=== PATIENT | female | born 1965 | race Caucasian/White ===

== ENCOUNTER → 2016-12-16 | Outpatient (CLI) | payer BC ==
[~2016-12-16] MED LIST: ATOR10TA82 PO; CPR500 PO; ESTR1.252 PO; FLUC100T4 PO; MTR250 PO; OMEP40CA41 PO; ONDA4TAB10 SL; ONDA4TAB7 SL; PRT/20 PO; RANI150T3 PO
--- NOTE | 2016-12-16 16:35 | MAMMOGRAPHY REPORT ---
BILATERAL DIGITAL SCREENING MAMMOGRAM TOMOSYNTHESIS WITH CAD: 12/16/2016 CLINICAL HISTORY: Routine screening. Patient has no complaints. TECHNIQUE: Breast tomosynthesis in addition to standard 2D mammography was performed. Current study was also evaluated with a Computer Aided Detection (CAD) system. COMPARISON: Comparison is made to exams dated: 11/19/2014 mammogram, 10/25/2014 mammogram, 10/25/2014 ultrasound, 10/22/2014 mammogram, 11/17/2012 mammogram, and 08/04/2010 mammogram - [facility]. BREAST COMPOSITION: There are scattered areas of fibroglandular density in both breasts. FINDINGS: No suspicious masses, calcifications, or areas of architectural distortion are noted in e ither breast. There has been no significant interval change compared to prior exams. A biopsy marke r clip is noted in the right upper outer quadrant. IMPRESSION: ACR BI-RADS CATEGORY 2: BENIGN There is no mammographic evidence of malignancy. A 1 year screening mammogram is recommended. The p atient will receive written notification of the results. Approximately 10% of breast cancers are not detected with mammography. A negative mammographic repor t should not delay biopsy if a clinically suggestive mass is present. Radha Napoles M.D. /:12/16/2016 15:18:23 Order Expediter: Ibis ROY)(Chin), [facility] letter sent: Normal 1/2 BI-RADS Code: ACR BI-RADS Category 2: Benign
== END | disposition home or self-care (01) ==
LOC: C.MAMM 14:23
PROVIDERS: ATTEND Obstetrics & Gynecology
DX: Z12.31 Encounter for screening mammogram for malignant neoplasm of breast (principal)

== ENCOUNTER 2017-02-26 22:57 | Inpatient (IN) | payer BC ==
[~2017-02-26] VITALS: Ht 154.9 cm; Wt 61.0 kg
[~2017-02-26 22:57] MED LIST changes: -ATOR10TA82 PO; +ATOR10TA88 PO; -CPR500 PO; -FLUC100T4 PO; -MTR250 PO; -OMEP40CA41 PO; -ONDA4TAB10 SL; -PRT/20 PO; -RANI150T3 PO
[2017-02-26] MEDS ORDERED: ONDANSETRON INJ 2 MG/ML 2 ML VIAL IV STA (23:19)
[2017-02-26] MEDS ORDERED: OPTIRAY 320 IV PRN (23:30)
[2017-02-26] MEDS ORDERED: SODIUM CHLORIDE 0.9% 1000ML 1,000 ML IV ONE (23:30)
[2017-02-26 23:41] LABS: BASO % 0.2 %; BASO ABS # 0.02 K/uL (0-0.2); COMPLETE YES; EOS % 0.1 %; HEMATOCRIT 42.9 % (37-47); IG% 0.1 %; LYMPH % 12.9 %; LYMPH ABS # 1.47 K/uL (1.2-3.4); MEAN CELL VOLUME 84.6 fL (80-100); MEAN CORPUSCULAR HEMOGLOBIN 30.8 pg (25-34); MEAN CORPUSCULAR HGB CONC 36.4 g/dl (32-36); MEAN PLATELET VOLUME 10.4 fL (7.4-10.4); MONO % 3.8 %; NEUT % 82.9 %; PLATELET COUNT 266 K/uL (130-400); RED BLOOD COUNT 5.07 M/uL (4.2-5.4); WHITE BLOOD COUNT 11.42 K/uL (4.8-10.8)
[2017-02-26] MEDS: MoRPHine SULFATE 4 MG/ML 1 ML CARP\\VIAL IV PRN (23:41)
[2017-02-27 00:01] LABS: BUN/CREATININE RATIO 14.4 (10-20); CALCIUM 9.5 mg/dl (8.5-10.1); CREATININE 0.68 mg/dl (0.60-1.20); MAGNESIUM 1.8 mg/dl (1.8-2.4); POTASSIUM 3.9 mmol/L (3.5-5.1)
[2017-02-27 00:12] LABS: ALB/GLOB RATIO 0.8 (0.9-2); THYROID STIMULATING HORMONE 1.75 uIu/ml (0.300-4.500)
[2017-02-27 00:26] LABS: MANUAL MICROSCOPIC REQUIRED? YES; URINE APPEARANCE SL CLOUDY (CLEAR); URINE BILIRUBIN NEG (NEG); URINE COLOR YELLOW; URINE NITRITE NEG (NEG); URINE PH 5.5 (4.5-7.5); URINE SPECIFIC GRAVITY >= 1.030 (1.000-1.030); UROBILINOGEN NEG (NEG)
[2017-02-27 00:50] LABS: REVIEW REQ? NO
[2017-02-27 00:53] LABS: ZZUR CULT IF INDIC CLEAN CATCH NO
[2017-02-27] MEDS: MoRPHine SULFATE 4 MG/ML 1 ML CARP\\VIAL IV PRN (01:50)
[2017-02-27] MEDS ORDERED: KETOROLAC TROMETHAMINE 30 MG/ML VIAL IV PRN (03:30)
[2017-02-27] MEDS ORDERED: MoRPHine SULFATE 4 MG/ML 1 ML CARP\\VIAL IV PRN (03:30)
[2017-02-27] MEDS ORDERED: ACETAMINOPHEN 325 MG TAB PO PRN (03:30)
[2017-02-27] MEDS ORDERED: PIPERACILL/TAZOBAC CONSULT ACTIVE PRN (03:45)
[2017-02-27] MEDS ORDERED: NSS + 20MEQ KCL 1000ML 1,000 ML IV ONE (03:45)
[2017-02-27] MEDS ORDERED: FAMOTIDINE IV INJ 20 MG in DEXTROSE 5% 100ML 100 ML IV ONE (03:45)
--- NOTE | 2017-02-27 04:11 | EMERGENCY ROOM VISIT NOTE ---
History First contact with patient: 23:08 Chief Complaint: ABDOMINAL PAIN Stated Complaint: CRAMPING Nursing Triage Summary: History of Present Illness The patient is a 51 year old female who presents to the Emergency Room with complaints of severe and worsening abdominal pain and cramping over the past 20 hours. The patient states that she has felt like she has needed to have a bowel movement, however when she does this she has noted some blood in her stool. The patient does not report fever or chills. She feels like she is constipated, but has had normal bowel movements recently. She has attempted Advil at home without relief of her discomfort. Her past does include a history of hysterectomy years ago. She does report one episode of this in the past, but not at this level of severity. She rates her current pain a 9/10, generalized to her abdomen, nonradiating. She is not head, neck, or chest pain. No vaginal drainage or discharge. No dysuria. Review of Systems More than 10 systems were reviewed and otherwise negative with the exception of history of present illness. Past Medical/Surgical History Medical Problems: (1) Colitis Surgical Problems: (1) History of hysterectomy Family History No pertinent family history Social History Smoking Status: Never Smoker Marital Status: Housing Status: lives with family Occupation Status: employed Current/Historical Medications Scheduled Estrogens, Conjugated (Premarin), 1.25 MG PO DAILY Allergies Coded Allergies: No Known Allergies (Unverified , 02/26/17) Physical Exam Vital Signs Date Time Temp Pulse Resp B/P (MAP) Pulse Ox O2 Delivery O2 Flow Rate FiO2 02/27/17 03:19 83 20 135/80 97 Room Air 02/27/17 02:04 69 18 139/74 97 Room Air 02/27/17 00:50 74 16 129/76 98 Room Air 02/26/17 23:02 36.6 77 19 135/75 98 Room Air Pain Rating (0-10): 5.0 Physical Exam VITALS: Vitals are noted on the nurse's note and reviewed by myself. Vital signs stable. GENERAL: Well-developed, well-nourished, white female who appears in moderate discomfort secondary to her stated complaint. HEAD: Normocephalic atraumatic. HEART: Regular rate and rhythm without murmurs gallops or rubs. LUNGS: Clear to auscultation bilaterally without wheezes, rales or rhonchi. No retractions or accessory muscle use. ABDOMEN: Positive normal bowel sounds x 4. Soft with generalized abdominal tenderness. No rebound or guarding. No CVA tenderness. MUSCULOSKELETAL: No muscle atrophy, erythema, or edema noted. Full range of motion without joint tenderness in all extremities. Medical Decision & Procedures ER Provider Diagnostic Interpretation: Preliminary Findings Only See Final Report For Complete Findings CT ABDOMEN & PELVIS: Bowel wall thickening of the descending and sigmoid colon, compatible with colitis. Appendix is normal. No free fluid. No free air. No evidence of bowel obstruction. Colonic diverticulosis without evidence of diverticulitis. Liver, gallbladder, pancreas, spleen, kidneys and adrenals are unremarkable. Uterus is surgically absent. Laboratory Results 02/26/17 23:32 Red Blood Count 5.07, Mean Corpuscular Volume 84.6, Mean Corpuscular Hemoglobin 30.8, Mean Corpuscular Hemoglobin Concent 36.4, Mean Platelet Volume 10.4, Neutrophils (%) (Auto) 82.9, Lymphocytes (%) (Auto) 12.9, Monocytes (%) (Auto) 3.8, Eosinophils (%) (Auto) 0.1, Basophils (%) (Auto) 0.2, Neutrophils # (Auto) 9.48, Lymphocytes # (Auto) 1.47, Monocytes # (Auto) 0.43, Eosinophils # (Auto) 0.01, Basophils # (Auto) 0.02 02/26/17 23:32 Test 02/26/17 23:15 02/26/17 23:32 02/26/17 23:36 Urine Color YELLOW Urine Appearance SL CLOUDY (CLEAR) Urine pH 5.5 (4.5-7.5) Urine Specific [place] >= 1.030 (1.000-1.030) Urine Protein NEG (NEG) Urine Glucose (UA) NEG (NEG) Urine Ketones 2+ (NEG) Urine Occult Blood 3+ (NEG) Urine Nitrite NEG (NEG) Urine Bilirubin NEG (NEG) Urine Urobilinogen NEG (NEG) Urine Leukocyte Esterase NEG (NEG) Urine RBC /hpf (0-4) Urine WBC /hpf (0-5) Urine Epithelial Cells /lpf (0-5) Urine Bacteria (NEG) White Blood Count 11.42 K/uL (4.8-10.8) Red Blood Count 5.07 M/uL (4.2-5.4) Hemoglobin 15.6 g/dL (12.0-16.0) Hematocrit 42.9 % (37-47) Mean Corpuscular Volume 84.6 fL (80-100) Mean Corpuscular Hemoglobin 30.8 pg (25-34) Mean Corpuscular Hemoglobin Concent 36.4 g/dl (32-36) Platelet Count 266 K/uL (130-400) Mean Platelet Volume 10.4 fL (7.4-10.4) Neutrophils (%) (Auto) 82.9 % Lymphocytes (%) (Auto) 12.9 % Monocytes (%) (Auto) 3.8 % Eosinophils (%) (Auto) 0.1 % Basophils (%) (Auto) 0.2 % Neutrophils # (Auto) 9.48 K/uL (1.4-6.5) Lymphocytes # (Auto) 1.47 K/uL (1.2-3.4) Monocytes # (Auto) 0.43 K/uL (0.11-0.59) Eosinophils # (Auto) 0.01 K/uL (0-0.5) Basophils # (Auto) 0.02 K/uL (0-0.2) RDW Standard Deviation 38.0 fL (36.4-46.3) RDW Coefficient of Variation 12.5 % (11.5-14.5) Immature Granulocyte % (Auto) 0.1 % Immature Granulocyte # (Auto) 0.01 K/uL (0.00-0.02) Anion Gap 9.0 mmol/L (3-11) Est Creatinine Clear Calc Drug Dose 83.5 ml/min Estimated GFR () 118.2 Estimated GFR (Non- 102.0 BUN/Creatinine Ratio 14.4 (10-20) Lactic Acid Level 1.4 mmol/L (0.4-2.0) Calcium Level 9.5 mg/dl (8.5-10.1) Magnesium Level 1.8 mg/dl (1.8-2.4) Total Bilirubin 0.5 mg/dl (0.2-1) Aspartate Amino Transf (AST/SGOT) 15 U/L (15-37) Alanine Aminotransferase (ALT/SGPT) 20 U/L (12-78) Alkaline Phosphatase 85 U/L (45-117) Total Protein 7.7 gm/dl (6.4-8.2) Albumin 3.4 gm/dl (3.4-5.0) Globulin 4.3 gm/dl (2.5-4.0) Albumin/Globulin Ratio 0.8 (0.9-2) Lipase 123 U/L (73-393) Thyroid Stimulating Hormone (TSH) 1.750 uIu/ml (0.300-4.500) Bedside Lactic Acid Venous 1.49 mmol/L (0.90-1.70) Medications Administered Medications (Trade) Dose Ordered Sig/Panchito Route Start Time Stop Time Status Last Admin Dose Admin Sodium Chloride 1,000 ml @ 999 mls/hr Q1H1M ONCE IV 02/26/17 23:30 02/27/17 00:30 DC 02/26/17 23:41 999 MLS/HR Morphine Sulfate (MoRPHine SULFATE INJ) 4 mg Q1H PRN IV 02/26/17 23:30 03/12/17 23:29 02/27/17 01:50 4 MG Ondansetron HCl (Zofran Inj) 4 mg NOW STAT IV 02/26/17 23:19 02/26/17 23:21 DC 02/26/17 23:41 4 MG Famotidine 20 mg/ Dextrose 102 ml @ 200 mls/hr NOW ONCE IV 02/27/17 03:45 02/27/17 04:15 02/27/17 03:56 200 MLS/HR ED Course Physical exam and history were performed. Nursing notes and EMR were reviewed. Patient appears to have generalized abdominal pain for the past 20 hours. The patient appears quite uncomfortable on examination. Her abdominal exam is with diffuse tenderness but no guarding or rebound. There is no distinct point tenderness. IV access was established and labs were obtained. The patient was hydrated with normal saline and given as needed morphine. She was given Zofran for nausea. CT scan of the abdomen and pelvis was performed. The patient's blood work is as above and was reviewed. She does have a slightly elevated white blood cell count. She does not have a significant anemia, bandemia, or gross electrolyte imbalance. Lipase and transaminases are nondiagnostic. Urine is without gross evidence of infection. Lactic acid was negative. The patient CT scan is as above and does show colitis of the descending and sigmoid colon. The patient was reevaluated multiple times throughout the course of her stay. She did need several doses of morphine to remain comfortable and did not have any vomiting here in the department. I did add stool studies to her workup due to the colitis of unknown etiology. Overall the patient does not seem stable for discharge home. She continues to be with discomfort and has colitis of unknown etiology. I discussed the case with the on-call hospitalist, who agreed to evaluate the patient here in the emergency department. Please see their dictation for further patient course, plan, and disposition. The chart was completed utilizing [employer] Speech Voice Recognition Software. Grammatical errors, random word insertions, pronoun errors, and incomplete sentences are an occasional consequence of this system due to software limitations, ambient noise, and hardware issues. Any formal questions or concerns about the content, text, or information contained within the body of this dictation should be directly addressed to the provider for clarification. . Medical Decision Differential diagnosis: Etiologies such as appendicitis, diverticulitis, PUD, biliary pathology, UTI, pancreatitis, obstruction, mesenteric ischemia, aortic pathology, infections, inflammatory bowel disease, renal colic, as well as others were entertained. Impression Primary Impression: Colitis Additional Impression: Vomiting and diarrhea Departure Information Referrals No Doctor, Assigned (PCP) Patient Instructions [facility] Problem Qualifiers
[2017-02-27 04:32] VITALS: BP 121/66; PULSE 61; TEMP 36.6; O2SAT 95; Ht 154.9 cm; Wt 61.0 kg
[2017-02-27] MEDS ORDERED: PIPERACILL/TAZOBAC IV 3.375 GM in DEXTROSE 5% 100ML 100 ML IV ONE (05:00)
--- NOTE | 2017-02-27 05:32 | History and Physical ---
History & Physical Date & Time of Service: Feb 27, 2017 at 05:25 Chief Complaint: Colitis Primary Care Physician: No Doctor, Assigned History of Present Illness Source: patient The patient is a 51-year-old female who presents emergency department with approximately 24 hours of progressively worsening generalized abdominal pain and cramping. She has taken Advil approximately every 6 hours without significant improvement. She has not had any fevers or chills, it feels like she is constipated, but is normal bowel. She has not had any dysuria, urinary frequency or urgency. She's had one previous episode of this type of discomfort , but did not last as long and was not nearly as intense. She does not report any different with questionable oral intake of foods or liquids. Past Medical/Surgical History Surgical Problems: (1) History of hysterectomy Status: Resolved Social History Smoking Status: Never Smoker Smokeless Tobacco Use: No Alcohol Use: none Drug Use: none Marital Status: Housing status: lives with family Occupational Status: employed Multi-Drug Resistant Organisms History of MDRO: No Allergies Coded Allergies: No Known Allergies (Unverified , 02/26/17) Home Medications Scheduled Estrogens, Conjugated (Premarin), 1.25 MG PO DAILY Review of Systems The patient denies chest pain, palpitations, shortness of breath, cough, lower extremity swelling, sore throat, fevers, chills, sweats, vomiting, blood in urine or stool, dysuria, urinary frequency or urgency, lightheadedness, dizziness, headache, memory loss, rash, abnormal bruising or bleeding, imbalance , focal or generalized weakness, numbness or tingling in arms or legs, arthralgias or myalgias, back or neck pain, night sweats. The review of systems is otherwise negative other than for that already noted above, and at least 10 systems have been reviewed. Physical Exam Vital Signs Date Time Temp Pulse Resp B/P (MAP) Pulse Ox O2 Delivery O2 Flow Rate FiO2 02/27/17 04:32 36.6 61 20 121/66 95 Room Air 02/27/17 03:19 83 20 135/80 97 Room Air 02/27/17 02:04 69 18 139/74 97 Room Air 02/27/17 00:50 74 16 129/76 98 Room Air 02/26/17 23:02 36.6 77 19 135/75 98 Room Air The patient is awake, well-developed and adequately nourished, alert and oriented 3, normocephalic and atraumatic, lying in bed and in mild distress. HEENT--PERRL, EOMI, mucous membranes and oropharynx dry. Neck--supple, no JVD or bruits, thyroid normal, trachea midline, no adenopathy. Heart--normal S1 and S2, no extra beats, no murmurs, rubs or gallops. Lungs--clear bilaterally with good air movement, no respiratory distress, no accessory muscle use. Abdomen--decreased bowel sounds, soft, with tenderness most pronounced left lower quadrant. Extremities--no cyanosis, clubbing or edema. There are good distal pulses b/l. Dermatologic--normal skin turgor, normal color, warm and dry, no abnormal lymph nodes, no rash. Neurologic--cranial nerves II through XII grossly intact. Rheumatologic--normal range of motion, nontender, muscles and joints. Psychiatric--normal affect. Diagnostics Laboratory Results Results Past 24 Hours Test 02/26/17 23:15 02/26/17 23:32 02/26/17 23:36 Range/Units Urine Color YELLOW Urine Appearance SL CLOUDY CLEAR Urine pH 5.5 4.5-7.5 Urine Specific [place] >= 1.030 1.000-1.030 Urine Protein NEG NEG Urine Glucose (UA) NEG NEG Urine Ketones 2+ NEG Urine Occult Blood 3+ NEG Urine Nitrite NEG NEG Urine Bilirubin NEG NEG Urine Urobilinogen NEG NEG Urine Leukocyte Esterase NEG NEG Urine RBC 0-4 /hpf Urine WBC 0-5 /hpf Urine Epithelial Cells 0-5 /lpf Urine Bacteria NEG White Blood Count 11.42 4.8-10.8 K/uL Red Blood Count 5.07 4.2-5.4 M/uL Hemoglobin 15.6 12.0-16.0 g/dL Hematocrit 42.9 37-47 % Mean Corpuscular Volume 84.6 80-100 fL Mean Corpuscular Hemoglobin 30.8 25-34 pg Mean Corpuscular Hemoglobin Concent 36.4 32-36 g/dl Platelet Count 266 130-400 K/uL Mean Platelet Volume 10.4 7.4-10.4 fL Neutrophils (%) (Auto) 82.9 % Lymphocytes (%) (Auto) 12.9 % Monocytes (%) (Auto) 3.8 % Eosinophils (%) (Auto) 0.1 % Basophils (%) (Auto) 0.2 % Neutrophils # (Auto) 9.48 1.4-6.5 K/uL Lymphocytes # (Auto) 1.47 1.2-3.4 K/uL Monocytes # (Auto) 0.43 0.11-0.59 K/uL Eosinophils # (Auto) 0.01 0-0.5 K/uL Basophils # (Auto) 0.02 0-0.2 K/uL RDW Standard Deviation 38.0 36.4-46.3 fL RDW Coefficient of Variation 12.5 11.5-14.5 % Immature Granulocyte % (Auto) 0.1 % Immature Granulocyte # (Auto) 0.01 0.00-0.02 K/uL Sodium Level 142 136-145 mmol/L Potassium Level 3.9 3.5-5.1 mmol/L Chloride Level 109 98-107 mmol/L Carbon Dioxide Level 24 21-32 mmol/L Anion Gap 9.0 3-11 mmol/L Blood Urea Nitrogen 10 7-18 mg/dl Creatinine 0.68 0.60-1.20 mg/dl Est Creatinine Clear Calc Drug Dose 83.5 ml/min Estimated GFR () 118.2 Estimated GFR (Non- 102.0 BUN/Creatinine Ratio 14.4 10-20 Random Glucose 128 70-99 mg/dl Lactic Acid Level 1.4 0.4-2.0 mmol/L Calcium Level 9.5 8.5-10.1 mg/dl Magnesium Level 1.8 1.8-2.4 mg/dl Total Bilirubin 0.5 0.2-1 mg/dl Aspartate Amino Transf (AST/SGOT) 15 15-37 U/L Alanine Aminotransferase (ALT/SGPT) 20 12-78 U/L Alkaline Phosphatase 85 45-117 U/L Total Protein 7.7 6.4-8.2 gm/dl Albumin 3.4 3.4-5.0 gm/dl Globulin 4.3 2.5-4.0 gm/dl Albumin/Globulin Ratio 0.8 0.9-2 Lipase 123 73-393 U/L Thyroid Stimulating Hormone (TSH) 1.750 0.300-4.500 uIu/ml Bedside Lactic Acid Venous 1.49 0.90-1.70 mmol/L Impression Assessment and Plan Colitis involving descending and sigmoid colon--patient be admitted to the medical surgical floor. She'll be allowed clear liquids. We'll place on NSS with KCl 20 mEq at 100 ML's per hour. Follow serial CBC with differential, PRP and magnesium. Place on Zosyn 3.375 mg IV every 6 hours, Zofran 4 mg IV every 6 hours., Famotidine 20 mg IV every 12 hours, morphine sulfate 2-4 mg IV every 2 hours.. Level of Care Med/Surg Advanced Directives Existing Advance Directive: No Existing Living Will: No Existing Power of Engineering Design Supervisor: No Resuscitation Status FULL RESUSCITATION VTE Prophylaxis VTE Risk Assessment Done? Y/N: Yes Risk Level: Low Given or contraindicated: SCD's Social Service Consult None Apply
[2017-02-27 07:15] VITALS: BP 121/69; PULSE 68; TEMP 36.6; O2SAT 96
--- NOTE | 2017-02-27 07:38 | DIAGNOSTIC IMAGING REPORT ---
CT SCAN OF THE ABDOMEN AND PELVIS WITH IV CONTRAST CLINICAL HISTORY: Generalized abdominal pain. Hematochezia. COMPARISON STUDY: Abdominal radiographs dated 01/19/2014. TECHNIQUE: Following the IV administration of 115 cc of Optiray 320, CT scan of the abdomen and pelvis is performed from the lung bases to the proximal femora. Images are reviewed in the axial, sagittal, and coronal planes. IV contrast was administered without complication. Automated dose control exposure was utilized. CT DOSE: 316.26 mGy.cm FINDINGS: Lung bases: The heart is normal in size and without pericardial effusion. There are least 5 pulmonary and pleural-based nodules seen in the lower lobes measuring up to 7 mm. The largest is in the left lower lobe as seen on image #38. No airspace consolidation or pleural effusion is identified. Liver: The contrast-enhanced liver is normal in size, contour, and attenuation. There is no intrahepatic biliary ductal dilatation. The hepatic veins and portal veins are patent. Gallbladder: Unremarkable. Spleen: Normal in size and attenuation. Pancreas: Unremarkable. Adrenal glands: Unremarkable. Kidneys: The contrast enhanced kidneys are normal in size and without hydronephrosis. The kidneys enhance symmetrically. Abdominal vasculature: The abdominal aorta is normal in course and caliber noting mild atherosclerotic calcification. Bowel: The small bowel and colon are normal in course and caliber. There is mild sigmoid diverticulosis without CT evidence of acute diverticulitis. There is a long segment of wall thickening and edema involving predominantly the descending colon consistent with a nonspecific colitis. There is mild pericolonic infiltration. The appendix is well-visualized and normal. Peritoneum: There is no intraperitoneal free air or abdominal ascites. There is a tiny hiatal hernia. Lymphadenopathy: None. Pelvic viscera: The bladder is normal as visualized. The uterus is surgically absent. No adnexal lesion is seen. Skeletal structures: No lytic or blastic lesions are seen. There are bilateral pars defects at L5 with advanced degenerative disc space narrowing and 13 mm anterolisthesis at L5-S1. IMPRESSION: 1. Findings are consistent with a nonspecific colitis of the descending colon. This is likely on an infectious or inflammatory basis in this age group. 2. Mild sigmoid diverticulosis without CT evidence of acute diverticulitis. 3. There are least 5 pulmonary and pleural-based nodules at both lung bases measuring up to 7 mm. These are indeterminant and follow-up with a nonemergent chest CT is recommended for further assessment. 4. Additional findings as above. Electronically signed by: Joshua Bar M.D. 02/27/2017 7:37 AM Dictated Date/Time: 02/27/2017 7:27 AM
[2017-02-27] MEDS: ESTROGENS, CONJUGATED 0.625 MG TAB PO SCH (08:07)
[2017-02-27 08:30] VITALS: O2SAT 96
[2017-02-27] MEDS: PIPERACILL/TAZOBAC IV 3.375 GM in DEXTROSE 5% 100ML 100 ML IV SCH ×2 (10:04→17:35)
[2017-02-27] MEDS: MoRPHine SULFATE 2 MG/ML CARP IV PRN ×2 (10:07→14:43)
--- NOTE | 2017-02-27 11:47 | Family Medicine Progress Note ---
Progress Note Date of Service Feb 27, 2017. Subjective Pt evaluation today including: conversation w/ patient, physical exam, chart review, lab review, review of studies, review of inpatient medication list Pain: abdominal pain improved PO Intake: NPO Voiding: no voiding problems 51 yo F presenting with Generalized abdominal pain/cramping, afebrile on arrival with WBC of 11.42, Ct Abdomen findings consistent with Colitis. Colitis -Abdominal pain improved -C/w IV NA -c/w Iv Zosyn -NPO Abnormal UA -Cloudy, 3+ Blood -Currently on Zosyn -Repeat UA Diet: Advance Diet Tmr DVT Proph: SCD Medications Current Inpatient Medications Medications (Trade) Dose Ordered Sig/Panchito Route Start Time Stop Time Status Last Admin Dose Admin Morphine Sulfate (MoRPHine SULFATE INJ) 4 mg Q1H PRN IV 02/26/17 23:30 03/12/17 23:29 02/27/17 01:50 4 MG Ioversol (Optiray 320) 100 ml UD PRN IV 02/26/17 23:30 03/02/17 23:29 Acetaminophen (Tylenol Tab) 650 mg Q4H PRN PO 02/27/17 03:30 03/29/17 03:29 Estrogens Conjugated (Premarin Tab) 1.25 mg DAILY PO 02/27/17 08:00 03/29/17 08:59 02/27/17 08:07 1.25 MG Piperacillin Sod/ Tazobactam Sod 3.375 gm/Dextrose 115 ml @ 28.75 mls/ hr Q8@0200,1000,1800 IV 02/27/17 10:00 03/09/17 09:59 02/27/17 10:04 28.75 MLS/HR Ondansetron HCl (Zofran Inj) 4 mg Q6H PRN IV 02/27/17 03:30 03/29/17 03:29 Potassium Chloride/Sodium Chloride 1,000 ml @ 100 mls/hr Q10H IV 02/27/17 13:45 03/29/17 13:44 02/27/17 14:10 100 MLS/HR Morphine Sulfate (MoRPHine SULFATE INJ) 2 mg Q2H PRN IV 02/27/17 03:30 03/13/17 03:29 02/27/17 10:07 2 MG Morphine Sulfate (MoRPHine SULFATE INJ) 4 mg Q2H PRN IV 02/27/17 03:30 03/13/17 03:29 Ketorolac Tromethamine (Toradol Inj) 30 mg Q6H PRN IV 02/27/17 03:30 03/04/17 03:29 Famotidine 20 mg/ Dextrose 102 ml @ 200 mls/hr Q12H IV 02/27/17 12:00 03/29/17 11:59 02/27/17 14:10 200 MLS/HR Piperacillin Sod/ Tazobactam Sod (Consult) 1 ea UD PRN N/A 02/27/17 03:45 03/29/17 03:44 Objective Vital Signs Date Time Temp Pulse Resp B/P (MAP) Pulse Ox O2 Delivery O2 Flow Rate FiO2 02/27/17 08:30 96 Room Air 02/27/17 07:15 36.6 68 18 121/69 (86) 96 Room Air 02/27/17 04:32 36.6 61 20 121/66 95 Room Air 02/27/17 03:19 83 20 135/80 97 Room Air 02/27/17 02:04 69 18 139/74 97 Room Air 02/27/17 00:50 74 16 129/76 98 Room Air 02/26/17 23:02 36.6 77 19 135/75 98 Room Air Physical Exam General Appearance: WD/WN, no apparent distress Eyes: PERRL, EOMI Neck: supple, no carotid bruits, trachea midline Respiratory/Chest: lungs clear, normal breath sounds, no respiratory distress Cardiovascular: regular rate, rhythm, no edema, no gallop Abdomen: soft, + tenderness (diffuse) Extremities: no pedal edema, no calf tenderness Neurologic/Psychiatric: alert, normal mood/affect Skin: warm/dry, no rash Laboratory Results Results Past 24 Hours Test 02/26/17 23:15 02/26/17 23:32 02/26/17 23:36 Range/Units Urine Color YELLOW Urine Appearance SL CLOUDY CLEAR Urine pH 5.5 4.5-7.5 Urine Specific [place] >= 1.030 1.000-1.030 Urine Protein NEG NEG Urine Glucose (UA) NEG NEG Urine Ketones 2+ NEG Urine Occult Blood 3+ NEG Urine Nitrite NEG NEG Urine Bilirubin NEG NEG Urine Urobilinogen NEG NEG Urine Leukocyte Esterase NEG NEG Urine RBC 0-4 /hpf Urine WBC 0-5 /hpf Urine Epithelial Cells 0-5 /lpf Urine Bacteria NEG White Blood Count 11.42 4.8-10.8 K/uL Red Blood Count 5.07 4.2-5.4 M/uL Hemoglobin 15.6 12.0-16.0 g/dL Hematocrit 42.9 37-47 % Mean Corpuscular Volume 84.6 80-100 fL Mean Corpuscular Hemoglobin 30.8 25-34 pg Mean Corpuscular Hemoglobin Concent 36.4 32-36 g/dl Platelet Count 266 130-400 K/uL Mean Platelet Volume 10.4 7.4-10.4 fL Neutrophils (%) (Auto) 82.9 % Lymphocytes (%) (Auto) 12.9 % Monocytes (%) (Auto) 3.8 % Eosinophils (%) (Auto) 0.1 % Basophils (%) (Auto) 0.2 % Neutrophils # (Auto) 9.48 1.4-6.5 K/uL Lymphocytes # (Auto) 1.47 1.2-3.4 K/uL Monocytes # (Auto) 0.43 0.11-0.59 K/uL Eosinophils # (Auto) 0.01 0-0.5 K/uL Basophils # (Auto) 0.02 0-0.2 K/uL RDW Standard Deviation 38.0 36.4-46.3 fL RDW Coefficient of Variation 12.5 11.5-14.5 % Immature Granulocyte % (Auto) 0.1 % Immature Granulocyte # (Auto) 0.01 0.00-0.02 K/uL Sodium Level 142 136-145 mmol/L Potassium Level 3.9 3.5-5.1 mmol/L Chloride Level 109 98-107 mmol/L Carbon Dioxide Level 24 21-32 mmol/L Anion Gap 9.0 3-11 mmol/L Blood Urea Nitrogen 10 7-18 mg/dl Creatinine 0.68 0.60-1.20 mg/dl Est Creatinine Clear Calc Drug Dose 83.5 ml/min Estimated GFR () 118.2 Estimated GFR (Non- 102.0 BUN/Creatinine Ratio 14.4 10-20 Random Glucose 128 70-99 mg/dl Lactic Acid Level 1.4 0.4-2.0 mmol/L Calcium Level 9.5 8.5-10.1 mg/dl Magnesium Level 1.8 1.8-2.4 mg/dl Total Bilirubin 0.5 0.2-1 mg/dl Aspartate Amino Transf (AST/SGOT) 15 15-37 U/L Alanine Aminotransferase (ALT/SGPT) 20 12-78 U/L Alkaline Phosphatase 85 45-117 U/L Total Protein 7.7 6.4-8.2 gm/dl Albumin 3.4 3.4-5.0 gm/dl Globulin 4.3 2.5-4.0 gm/dl Albumin/Globulin Ratio 0.8 0.9-2 Lipase 123 73-393 U/L Thyroid Stimulating Hormone (TSH) 1.750 0.300-4.500 uIu/ml Bedside Lactic Acid Venous 1.49 0.90-1.70 mmol/L Assessment and Plan 51 yo F presenting with Generalized abdominal pain/cramping, afebrile on arrival with WBC of 11.42, CT Abdomen findings consistent with Colitis. Colitis -Abdominal pain improved CT Abdomen: nonspecific colitis of the descending colon. -likely on an infectious or inflammatory basis in this age group -Mild sigmoid diverticulosis -C/w IV NA -C/w Iv Zosyn -NPO -Consider GI consult in the AM Pulmonary nodules - incidental finding on CT Abdomen/pelvis 5 pulmonary and pleural-based nodules at both lung bases measuring up to 7 mm. - Consider Chest CT in the AM non-emergently ( recommended by Radiology) Abnormal UA -Cloudy, 3+ Blood -Currently on Zosyn -Repeat UA Diet: Advance Diet Tmr DVT Proph: -SCD Discharge planning: home Resident Tracking Resident Involvement: Resident Care Provided Care Provided: Adult Hospital Medicine
[2017-02-27] MEDS: FAMOTIDINE IV INJ 20 MG in DEXTROSE 5% 100ML 100 ML IV SCH ×3 (12:19→23:29)
[2017-02-27] MEDS: NSS + 20MEQ KCL 1000ML 1,000 ML IV SCH ×2 (14:10→23:27)
[2017-02-27 15:01] VITALS: BP 123/74; PULSE 61; TEMP 36.8; O2SAT 97
[2017-02-27 16:00] VITALS: O2SAT 97
[2017-02-27] MEDS: ONDANSETRON INJ 2 MG/ML 2 ML VIAL IV PRN (17:35)
[2017-02-27 18:07] LABS: URINE APPEARANCE CLOUDY (CLEAR); URINE BILIRUBIN NEG (NEG); URINE COLOR YELLOW; URINE EPITHELIAL CELL AUTO >30 /lpf (0-5); URINE NITRITE NEG (NEG); URINE SPECIFIC GRAVITY 1.032 (1.000-1.030); UROBILINOGEN NEG (NEG); ZZUR CULT IF INDIC CLEAN CATCH NO
[2017-02-27 18:10] LABS: MANUAL MICROSCOPIC REQUIRED? NO; REVIEW REQ? NO
[2017-02-27 23:25] VITALS: BP 121/68; PULSE 63; TEMP 36.9; O2SAT 100
[2017-02-28] MEDS: PIPERACILL/TAZOBAC IV 3.375 GM in DEXTROSE 5% 100ML 100 ML IV SCH ×2 (01:18→10:27)
[2017-02-28 06:10] LABS: BASO % 0.4 %; BASO ABS # 0.04 K/uL (0-0.2); COMPLETE YES; EOS % 1.5 %; HEMATOCRIT 39.9 % (37-47); IG% 0.1 %; LYMPH ABS # 2.84 K/uL (1.2-3.4); MEAN CELL VOLUME 87.1 fL (80-100); MEAN CORPUSCULAR HEMOGLOBIN 29.9 pg (25-34); MEAN CORPUSCULAR HGB CONC 34.3 g/dl (32-36); MEAN PLATELET VOLUME 10.4 fL (7.4-10.4); MONO % 8.2 %; NEUT % 58.8 %; PLATELET COUNT 213 K/uL (130-400); RED BLOOD COUNT 4.58 M/uL (4.2-5.4); WHITE BLOOD COUNT 9.16 K/uL (4.8-10.8)
[2017-02-28 06:34] LABS: BUN/CREATININE RATIO 10.4 (10-20); CALCIUM 8.3 mg/dl (8.5-10.1); CREATININE 0.72 mg/dl (0.60-1.20); MAGNESIUM 1.8 mg/dl (1.8-2.4); POTASSIUM 3.4 mmol/L (3.5-5.1)
[2017-02-28 07:15] VITALS: BP 123/74; PULSE 64; TEMP 36.7; O2SAT 99
[2017-02-28] MEDS: ESTROGENS, CONJUGATED 0.625 MG TAB PO SCH (07:52)
[2017-02-28] MEDS: NSS + 20MEQ KCL 1000ML 1,000 ML IV SCH ×2 (10:14→19:47)
[2017-02-28] MEDS: FAMOTIDINE IV INJ 20 MG in DEXTROSE 5% 100ML 100 ML IV SCH ×2 (14:06→23:45)
[2017-02-28 14:56] VITALS: BP 132/72; PULSE 69; TEMP 37.3; O2SAT 98
[2017-02-28] MEDS ORDERED: CIPROFLOXACIN 500 MG TAB PO ONE (15:00)
--- NOTE | 2017-02-28 15:22 | Family Medicine Progress Note ---
Progress Note Date of Service Feb 28, 2017. Subjective Pt evaluation today including: conversation w/ patient, physical exam Pain: none PO Intake: minimal Patients abdominal pain improving Still incontinent of faeces, liquid in nature, patient does not bright red blood in earlier bowel movement Patient unable to tolerate full liquid diet Constitutional: No fever, No chills, No sweats Respiratory: No cough, No wheezing, No shortness of breath Cardiovascular: No chest pain, No edema, No palpitations Abdomen: + pain, + nausea, + diarrhea, No vomiting, No constipation, No GI bleeding Musculoskeletal: No joint pain, No muscle pain, No swelling Skin: No rash, No itch, No new/changing skin lesions Medications Current Inpatient Medications Medications (Trade) Dose Ordered Sig/Panchito Route Start Time Stop Time Status Last Admin Dose Admin Ioversol (Optiray 320) 100 ml UD PRN IV 02/26/17 23:30 03/02/17 23:29 Acetaminophen (Tylenol Tab) 650 mg Q4H PRN PO 02/27/17 03:30 03/29/17 03:29 Estrogens Conjugated (Premarin Tab) 1.25 mg DAILY PO 02/27/17 08:00 03/29/17 08:59 02/27/17 08:07 1.25 MG Ondansetron HCl (Zofran Inj) 4 mg Q6H PRN IV 02/27/17 03:30 03/29/17 03:29 02/27/17 17:35 4 MG Potassium Chloride/Sodium Chloride 1,000 ml @ 100 mls/hr Q10H IV 02/27/17 13:45 03/29/17 13:44 02/28/17 10:14 100 MLS/HR Morphine Sulfate (MoRPHine SULFATE INJ) 2 mg Q2H PRN IV 02/27/17 03:30 03/13/17 03:29 02/27/17 14:43 2 MG Morphine Sulfate (MoRPHine SULFATE INJ) 4 mg Q2H PRN IV 02/27/17 03:30 03/13/17 03:29 Ketorolac Tromethamine (Toradol Inj) 30 mg Q6H PRN IV 02/27/17 03:30 03/04/17 03:29 Famotidine 20 mg/ Dextrose 102 ml @ 200 mls/hr Q12H IV 02/27/17 12:00 03/29/17 11:59 02/28/17 14:06 200 MLS/HR Ciprofloxacin/ Dextrose 400 mg/ Prmx 200 ml @ 100 mls/hr Q12 IV 02/28/17 21:00 03/01/17 10:59 Metronidazole 500 mg/Prmx 100 ml @ 100 mls/hr Q8H IV 02/28/17 16:00 03/01/17 08:59 Objective Vital Signs Date Time Temp Pulse Resp B/P (MAP) Pulse Ox O2 Delivery O2 Flow Rate FiO2 02/28/17 14:56 37.3 69 20 132/72 (92) 98 Room Air 02/28/17 08:10 Room Air 02/28/17 07:15 36.7 64 20 123/74 (90) 99 Room Air 02/28/17 00:00 Room Air 02/27/17 23:25 36.9 63 18 121/68 (85) 100 Room Air 02/27/17 16:00 97 Room Air Physical Exam General Appearance: WD/WN, no apparent distress Neck: supple, no adenopathy, no JVD, no carotid bruits Respiratory/Chest: chest non-tender, lungs clear, no respiratory distress, no accessory muscle use Cardiovascular: regular rate, rhythm, no edema, no murmur Abdomen: normal bowel sounds, soft, + tenderness (mild RLQ tenderness) Extremities: non-tender, no calf tenderness, normal capillary refill Neurologic/Psychiatric: no motor/sensory deficits, normal mood/affect, oriented x 3 Laboratory Results Results Past 24 Hours Test 02/27/17 17:30 02/28/17 05:31 Range/Units Urine Color YELLOW Urine Appearance CLOUDY CLEAR Urine pH 5.0 4.5-7.5 Urine Specific [place] 1.032 1.000-1.030 Urine Protein NEG NEG Urine Glucose (UA) NEG NEG Urine Ketones 1+ NEG Urine Occult Blood 1+ NEG Urine Nitrite NEG NEG Urine Bilirubin NEG NEG Urine Urobilinogen NEG NEG Urine Leukocyte Esterase TRACE NEG Urine WBC (Auto) 1-5 0-5 /hpf Urine RBC (Auto) 0-4 0-4 /hpf Urine Hyaline Casts (Auto) 1-5 0-5 /lpf Urine Epithelial Cells (Auto) >30 0-5 /lpf Urine Bacteria (Auto) NEG NEG White Blood Count 9.16 4.8-10.8 K/uL Red Blood Count 4.58 4.2-5.4 M/uL Hemoglobin 13.7 12.0-16.0 g/dL Hematocrit 39.9 37-47 % Mean Corpuscular Volume 87.1 80-100 fL Mean Corpuscular Hemoglobin 29.9 25-34 pg Mean Corpuscular Hemoglobin Concent 34.3 32-36 g/dl Platelet Count 213 130-400 K/uL Mean Platelet Volume 10.4 7.4-10.4 fL Neutrophils (%) (Auto) 58.8 % Lymphocytes (%) (Auto) 31.0 % Monocytes (%) (Auto) 8.2 % Eosinophils (%) (Auto) 1.5 % Basophils (%) (Auto) 0.4 % Neutrophils # (Auto) 5.38 1.4-6.5 K/uL Lymphocytes # (Auto) 2.84 1.2-3.4 K/uL Monocytes # (Auto) 0.75 0.11-0.59 K/uL Eosinophils # (Auto) 0.14 0-0.5 K/uL Basophils # (Auto) 0.04 0-0.2 K/uL RDW Standard Deviation 41.0 36.4-46.3 fL RDW Coefficient of Variation 12.8 11.5-14.5 % Immature Granulocyte % (Auto) 0.1 % Immature Granulocyte # (Auto) 0.01 0.00-0.02 K/uL Sodium Level 140 136-145 mmol/L Potassium Level 3.4 3.5-5.1 mmol/L Chloride Level 108 98-107 mmol/L Carbon Dioxide Level 23 21-32 mmol/L Anion Gap 9.0 3-11 mmol/L Blood Urea Nitrogen 8 7-18 mg/dl Creatinine 0.72 0.60-1.20 mg/dl Est Creatinine Clear Calc Drug Dose 78.3 ml/min Estimated GFR () 113.2 Estimated GFR (Non- 97.7 BUN/Creatinine Ratio 10.4 10-20 Random Glucose 75 70-99 mg/dl Calcium Level 8.3 8.5-10.1 mg/dl Magnesium Level 1.8 1.8-2.4 mg/dl Assessment and Plan 51 yo F presenting with Generalized abdominal pain/cramping, afebrile on arrival with WBC of 11.42, Ct Abdomen findings consistent with Colitis. Infectious vs Ischaemic. More likely ischaemic due to bright red blood in previous bowel movement. Colitis (infectious vs ischaemic) - Abdominal pain improved - switch to IV cipro and flagyl - advance diet to clear liquid diet - obtain c diff, FOBT, stool culture, stool ova and parasites, stool count Abnormal UA -repeat UA with +1 blood and trace leuk -Currently on cipro and flagyl Diet: Advance Diet Tmr DVT Proph: SCD Resident Physician Supervision Note: I was present with PGY2 Dr. Dyllan Ramires during the history and exam. I discussed the case with the resident and agree with the findings and plan as documented in the note. Any exceptions or clarifications are listed here: none. Abd pain improved but continues with diarrhea; nonbloody. HOWEVER - did have bloody stools prior to admission (5-6 times). No emesis. VSS no fever gen - nad, nontoxic mouth - MMM heart - RRR lungs - CTA b/l abd - soft, scant tenderness LLQ, no peritoneal signs, BS+ ext - no edema A/P: colitis - ischemic vs infectious; favor former. downgrade diet to clears. continue IVF. change zosyn to cipro/flagyl. c. diff toxin and stool cx. Documented By: Garry Patel MD Continued [facility] stay due to: multiple IV medications needed
[2017-02-28] MEDS: METRONIDAZOLE / NSS 500 MG in PREMIXED NSS 100 ML IV SCH ×2 (15:56→23:44)
[2017-02-28] MEDS ORDERED: METRONIDAZOLE 500 MG TAB PO SCH (20:00)
[2017-02-28] MEDS ORDERED: CIPROFLOXACIN 500 MG TAB PO SCH (20:00)
[2017-02-28] MEDS: CIPROFLOXACIN / D5W 400 MG in PREMIXED IN D5W 200 ML IV SCH (21:05)
[2017-02-28 23:49] VITALS: BP 124/76; PULSE 56; TEMP 36.8; O2SAT 97
[2017-03-01] MEDS: NSS + 20MEQ KCL 1000ML 1,000 ML IV SCH ×2 (05:54→17:11)
[2017-03-01 07:06] LABS: BASO % 0.7 %; BASO ABS # 0.05 K/uL (0-0.2); COMPLETE YES; EOS % 2.9 %; HEMATOCRIT 37.4 % (37-47); IG% 0.3 %; LYMPH ABS # 2.06 K/uL (1.2-3.4); MEAN CELL VOLUME 85.8 fL (80-100); MEAN PLATELET VOLUME 9.9 fL (7.4-10.4); MONO % 8.2 %; NEUT % 60.9 %; PLATELET COUNT 194 K/uL (130-400); RED BLOOD COUNT 4.36 M/uL (4.2-5.4); WHITE BLOOD COUNT 7.64 K/uL (4.8-10.8)
[2017-03-01 07:19] VITALS: BP 147/84; PULSE 68; TEMP 36.6; O2SAT 98
[2017-03-01 07:33] LABS: BUN/CREATININE RATIO 9.8 (10-20); CALCIUM 8.2 mg/dl (8.5-10.1); CREATININE 0.62 mg/dl (0.60-1.20); MAGNESIUM 1.7 mg/dl (1.8-2.4); POTASSIUM 4.1 mmol/L (3.5-5.1)
[2017-03-01] MEDS: METRONIDAZOLE / NSS 500 MG in PREMIXED NSS 100 ML IV SCH (08:58)
[2017-03-01] MEDS: CIPROFLOXACIN / D5W 400 MG in PREMIXED IN D5W 200 ML IV SCH (08:58)
[2017-03-01] MEDS: ESTROGENS, CONJUGATED 0.625 MG TAB PO SCH (08:58)
[2017-03-01] MEDS: ONDANSETRON INJ 2 MG/ML 2 ML VIAL IV PRN (09:05)
[2017-03-01] MEDS: FAMOTIDINE IV INJ 20 MG in DEXTROSE 5% 100ML 100 ML IV SCH (12:15)
--- NOTE | 2017-03-01 12:32 | Family Medicine Progress Note ---
Progress Note Date of Service Mar 01, 2017. Subjective Pt evaluation today including: conversation w/ patient, physical exam, chart review, lab review, conversation w/ claims consultant, review of inpatient medication list Pain: in epigastric PO Intake: minimal Voiding: no voiding problems Patient says she is feeling lousy today She took a sip of water and her abdomen started to hurt. Beef broth has made her feel very nauseated. She says her pain is now in her epigastric region. Still having occasional watery diarrhea and at times she is unable to get to the washroom She denies any abdominal cramping, fevers, chills, vomiting Constitutional: No fever, No chills, No sweats Respiratory: No cough, No wheezing, No shortness of breath Cardiovascular: No chest pain, No edema, No palpitations Abdomen: + nausea, + diarrhea, No pain, No vomiting, No constipation, No GI bleeding Female : No dysuria, No urinary frequency, No hematuria Medications Current Inpatient Medications Medications (Trade) Dose Ordered Sig/Panchito Route Start Time Stop Time Status Last Admin Dose Admin Ioversol (Optiray 320) 100 ml UD PRN IV 02/26/17 23:30 03/02/17 23:29 Acetaminophen (Tylenol Tab) 650 mg Q4H PRN PO 02/27/17 03:30 03/29/17 03:29 Estrogens Conjugated (Premarin Tab) 1.25 mg DAILY PO 02/27/17 08:00 03/29/17 08:59 02/27/17 08:07 1.25 MG Ondansetron HCl (Zofran Inj) 4 mg Q6H PRN IV 02/27/17 03:30 03/29/17 03:29 03/01/17 09:05 4 MG Potassium Chloride/Sodium Chloride 1,000 ml @ 100 mls/hr Q10H IV 02/27/17 13:45 03/29/17 13:44 03/01/17 05:54 100 MLS/HR Morphine Sulfate (MoRPHine SULFATE INJ) 2 mg Q2H PRN IV 02/27/17 03:30 03/13/17 03:29 02/27/17 14:43 2 MG Morphine Sulfate (MoRPHine SULFATE INJ) 4 mg Q2H PRN IV 02/27/17 03:30 03/13/17 03:29 Ketorolac Tromethamine (Toradol Inj) 30 mg Q6H PRN IV 02/27/17 03:30 03/04/17 03:29 Famotidine 20 mg/ Dextrose 102 ml @ 200 mls/hr Q12H IV 02/27/17 12:00 03/29/17 11:59 03/01/17 12:15 200 MLS/HR Objective Vital Signs Date Time Temp Pulse Resp B/P (MAP) Pulse Ox O2 Delivery O2 Flow Rate FiO2 03/01/17 10:00 Room Air 03/01/17 07:19 36.6 68 18 147/84 (105) 98 Room Air 03/01/17 00:00 Room Air 02/28/17 23:49 36.8 56 18 124/76 (92) 97 Room Air 02/28/17 16:33 Room Air 02/28/17 14:56 37.3 69 20 132/72 (92) 98 Room Air Physical Exam General Appearance: WD/WN, no apparent distress Respiratory/Chest: lungs clear, no respiratory distress, no accessory muscle use Cardiovascular: regular rate, rhythm, no JVD, no murmur Abdomen: normal bowel sounds, non tender, soft, no organomegaly Extremities: normal range of motion, non-tender, no calf tenderness, normal capillary refill Neurologic/Psychiatric: alert, normal mood/affect, oriented x 3 Laboratory Results Results Past 24 Hours Test 03/01/17 06:44 Range/Units White Blood Count 7.64 4.8-10.8 K/uL Red Blood Count 4.36 4.2-5.4 M/uL Hemoglobin 13.1 12.0-16.0 g/dL Hematocrit 37.4 37-47 % Mean Corpuscular Volume 85.8 80-100 fL Mean Corpuscular Hemoglobin 30.0 25-34 pg Mean Corpuscular Hemoglobin Concent 35.0 32-36 g/dl Platelet Count 194 130-400 K/uL Mean Platelet Volume 9.9 7.4-10.4 fL Neutrophils (%) (Auto) 60.9 % Lymphocytes (%) (Auto) 27.0 % Monocytes (%) (Auto) 8.2 % Eosinophils (%) (Auto) 2.9 % Basophils (%) (Auto) 0.7 % Neutrophils # (Auto) 4.66 1.4-6.5 K/uL Lymphocytes # (Auto) 2.06 1.2-3.4 K/uL Monocytes # (Auto) 0.63 0.11-0.59 K/uL Eosinophils # (Auto) 0.22 0-0.5 K/uL Basophils # (Auto) 0.05 0-0.2 K/uL RDW Standard Deviation 38.8 36.4-46.3 fL RDW Coefficient of Variation 12.3 11.5-14.5 % Immature Granulocyte % (Auto) 0.3 % Immature Granulocyte # (Auto) 0.02 0.00-0.02 K/uL Sodium Level 141 136-145 mmol/L Potassium Level 4.1 3.5-5.1 mmol/L Chloride Level 109 98-107 mmol/L Carbon Dioxide Level 21 21-32 mmol/L Anion Gap 11.0 3-11 mmol/L Blood Urea Nitrogen 6 7-18 mg/dl Creatinine 0.62 0.60-1.20 mg/dl Est Creatinine Clear Calc Drug Dose 90.9 ml/min Estimated GFR () 121.9 Estimated GFR (Non- 105.1 BUN/Creatinine Ratio 9.8 10-20 Random Glucose 55 70-99 mg/dl Calcium Level 8.2 8.5-10.1 mg/dl Magnesium Level 1.7 1.8-2.4 mg/dl Assessment and Plan 51 yo F presenting with Generalized abdominal pain/cramping, afebrile on arrival with WBC of 11.42, Ct Abdomen findings consistent with Colitis. Infectious vs Ischaemic. More likely ischaemic due to bright red blood in previous bowel movement, but may also consider inflammatory colitis, GERD on differential diagnosis Colitis (infectious vs ischaemic vs inflammatory) - Abdominal pain improved - switch to IV cipro and flagyl - advance diet to clear liquid diet - c.diff negative, wbc smear negative, stool culture negative to date, shiga toxin negative - Zantac IV ordered - Will consider ESR tomorrow to rule out IBD - Patient will need EGD and colonoscopy as outpatient Abnormal UA -repeat UA with +1 blood and trace leuk -Currently on cipro and flagyl Hypomagnesemia - 1.7 - replace PO Diet: Clear liquid diet, currently unable to tolerate DVT Proph: SCD Resident Physician Supervision Note: I was present with PGY2 Dr. Dyllan Ramires during the history and exam. I discussed the case with the resident and agree with the findings and plan as documented in the note. Any exceptions or clarifications are listed here: none. LLQ pain from colitis resolved. had high epigastric pain today - almost had pain instantaneously with breakfast this am in this region. has frequent burping/belching outside of the hospital. zantac IV started this AM; when I saw her in the afternoon the aforementioned symptoms were better. VSS no fever gen - nad, nontoxic mouth - MMM heart - RRR lungs - CTA b/l abd - soft, tenderness epigastric area, no pain in LUQ or LLQ, no peritoneal signs, BS+ ext - no edema A/P: colitis - ischemic vs infectious; favor former. c diff toxin and stool cx to date negative. consider mesenteric duplex or CTA to look at vasculature. cont IVF; clears as tolerated. I believe her symptoms today were not from colitis but from gastritis/GERD. suspected chronic GERD/gastritis - cont zantac. recommend H2 richa or PPI as outpatient. cont cipro/flagyl. labs in am. Documented By: Garry Patel MD Continued [facility] stay due to: multiple IV medications needed
[2017-03-01 15:36] VITALS: BP 114/78; PULSE 63; TEMP 37; O2SAT 98
[2017-03-01] MEDS ORDERED: MAGNESIUM OXIDE 400 MG TAB PO ONE (15:53)
[2017-03-01] MEDS: RANITIDINE IV 50 MG in DEXTROSE 5% 100ML 100 ML IV SCH (17:11)
[2017-03-01] MEDS: MAGNESIUM OXIDE 400 MG TAB PO SCH (20:15)
[2017-03-01 22:46] VITALS: BP 125/75; PULSE 64; TEMP 36.8; O2SAT 97
[2017-03-02] MEDS: NSS + 20MEQ KCL 1000ML 1,000 ML IV SCH ×2 (01:28→12:21)
[2017-03-02] MEDS: RANITIDINE IV 50 MG in DEXTROSE 5% 100ML 100 ML IV SCH (04:54)
[2017-03-02 06:56] LABS: BUN/CREATININE RATIO 14.3 (10-20); CALCIUM 8.2 mg/dl (8.5-10.1); CREATININE 0.55 mg/dl (0.60-1.20); MAGNESIUM 1.9 mg/dl (1.8-2.4); POTASSIUM 4.4 mmol/L (3.5-5.1)
[2017-03-02] MEDS: ESTROGENS, CONJUGATED 0.625 MG TAB PO SCH (07:02)
[2017-03-02 07:45] VITALS: BP 123/75; PULSE 68; TEMP 36.5; O2SAT 95
[2017-03-02] MEDS: MAGNESIUM OXIDE 400 MG TAB PO SCH ×2 (08:53→19:44)
[2017-03-02] MEDS ORDERED: PRT/20 PO (10:25)
[2017-03-02] MEDS ORDERED: RANI150T3 PO (10:25)
--- NOTE | 2017-03-02 10:42 | Discharge Instructions ---
Discharge Instructions Date of Service Mar 02, 2017. Admission Reason for Admission: Colitis Discharge Discharge Diagnosis / Problem: GERD and Colitis Discharge Goals Goal(s): Decrease discomfort, Diagnostic testing, Prevent Disease Progression Activity Recommendations Activity Limitations: resume your previous activity . Instructions / Follow-Up Instructions / Follow-Up You were found to have some inflammation of your large intestine. You also had pain in your upper abdomen and you responded well to zantac so therefore it is likely you have reflux. We also found a fungus in your stool called diflucan. We will send you home with a prescription of zantac, cipro, flagyl and diflucan Please refrain from using any alcohol while you are on antibiotics You will need an endoscopy and colonoscopy in 6-8 weeks. Please organize this with your PCP. If you have any worsening diarrhea, abdominal pain, or vomiting please come back to the emergency department Please follow up with a physician next Tuesday at 1:10pm. This is with [facility]. The clinic is across the road from the [facility]. You can phone the office to confirm your appointment at [phone]. Current Hospital Diet Patient's current hospital diet: Full Liquid Diet Discharge Diet Recommended Diet: Regular Diet Pending Studies Studies pending at discharge: no Medical Emergencies . Who to Call and When: Medical Emergencies: If at any time you feel your situation is an emergency, please call 911 immediately. . Non-Emergent Contact Non-Emergency issues call your: Primary Care Provider . . "Provider Documentation" section prepared by Dyllan Ramires. . VTE Core Measure Inpt VTE Proph given/why not?: SCD's
[2017-03-02 15:46] VITALS: BP 137/86; PULSE 69; TEMP 37; O2SAT 97
--- NOTE | 2017-03-02 16:37 | Family Medicine Progress Note ---
Progress Note Date of Service Mar 02, 2017. Subjective Pt evaluation today including: conversation w/ patient, physical exam, chart review, conversation w/ senior health consultant Pain: improved PO Intake: normal diet Voiding: no voiding problems, no incontinence Patient feel much better Continues to have some belching after eating No longer nauseated when eating Still having some diarrhea but is able to control bowel movements Denies any vomiting, abdominal pain, fever or chills Constitutional: No fever, No chills Respiratory: No cough, No shortness of breath Cardiovascular: No chest pain, No palpitations Abdomen: + diarrhea, No pain, No nausea, No vomiting, No constipation Medications Current Inpatient Medications Medications (Trade) Dose Ordered Sig/Panchito Route Start Time Stop Time Status Last Admin Dose Admin Ioversol (Optiray 320) 100 ml UD PRN IV 02/26/17 23:30 03/02/17 23:29 Acetaminophen (Tylenol Tab) 650 mg Q4H PRN PO 02/27/17 03:30 03/29/17 03:29 Estrogens Conjugated (Premarin Tab) 1.25 mg DAILY PO 02/27/17 08:00 03/29/17 08:59 02/27/17 08:07 1.25 MG Ondansetron HCl (Zofran Inj) 4 mg Q6H PRN IV 02/27/17 03:30 03/29/17 03:29 03/01/17 09:05 4 MG Potassium Chloride/Sodium Chloride 1,000 ml @ 50 mls/hr Q20H IV 02/27/17 13:45 03/29/17 13:44 03/02/17 12:21 100 MLS/HR Morphine Sulfate (MoRPHine SULFATE INJ) 2 mg Q2H PRN IV 02/27/17 03:30 03/13/17 03:29 02/27/17 14:43 2 MG Morphine Sulfate (MoRPHine SULFATE INJ) 4 mg Q2H PRN IV 02/27/17 03:30 03/13/17 03:29 Ketorolac Tromethamine (Toradol Inj) 30 mg Q6H PRN IV 02/27/17 03:30 03/04/17 03:29 Magnesium Oxide (Mag-Ox Tab) 400 mg BID PO 03/01/17 20:00 03/31/17 19:59 03/02/17 08:53 400 MG Ranitidine HCl (zANTac TAB) 150 mg BID PO 03/02/17 20:00 04/01/17 19:59 Objective Vital Signs Date Time Temp Pulse Resp B/P (MAP) Pulse Ox O2 Delivery O2 Flow Rate FiO2 03/02/17 15:46 37.0 69 18 137/86 (103) 97 03/02/17 09:26 Room Air 03/02/17 07:45 36.5 68 17 123/75 (91) 95 03/02/17 00:00 Room Air 03/01/17 22:46 36.8 64 16 125/75 (92) 97 Room Air 03/01/17 20:00 Room Air Physical Exam General Appearance: WD/WN, no apparent distress Neck: supple, no JVD, no carotid bruits Respiratory/Chest: lungs clear, no respiratory distress, no accessory muscle use Cardiovascular: regular rate, rhythm, no murmur Abdomen: normal bowel sounds, non tender, soft Extremities: non-tender, no pedal edema, no calf tenderness, normal capillary refill Neurologic/Psychiatric: alert, normal mood/affect, oriented x 3 Laboratory Results Results Past 24 Hours Test 03/01/17 19:45 03/02/17 06:15 03/02/17 14:32 Range/Units Stool Occult Blood NEGATIVE NEGATIVE Erythrocyte Sedimentation Rate 7 0-21 mm/hr Sodium Level 139 136-145 mmol/L Potassium Level 4.4 3.5-5.1 mmol/L Chloride Level 111 98-107 mmol/L Carbon Dioxide Level 16 21-32 mmol/L Anion Gap 12.0 3-11 mmol/L Blood Urea Nitrogen 8 7-18 mg/dl Creatinine 0.55 0.60-1.20 mg/dl Est Creatinine Clear Calc Drug Dose 102.5 ml/min Estimated GFR () 126.8 Estimated GFR (Non- 109.4 BUN/Creatinine Ratio 14.3 10-20 Random Glucose 66 70-99 mg/dl Calcium Level 8.2 8.5-10.1 mg/dl Magnesium Level 1.9 1.8-2.4 mg/dl Bedside Glucose 137 70-90 mg/dl Assessment and Plan 51 yo F presenting with Generalized abdominal pain/cramping, afebrile on arrival with WBC of 11.42, Ct Abdomen findings consistent with Colitis. Infectious vs Ischaemic. More likely ischaemic due to bright red blood in previous bowel movement, but may also consider inflammatory colitis, GERD on differential diagnosis Colitis (infectious vs ischaemic vs inflammatory) - Abdominal pain improved - switch to PO cipro and flagyl - patient tolerating full diet - c.diff negative, wbc smear negative, stool culture negative to date, shiga toxin negative - Zantac IV improved symptoms, will transition to PO - ESR was 7 therefore inflammatory process very unlikely - Patient will need EGD and colonoscopy as outpatient Abnormal UA -repeat UA with +1 blood and trace leuk -Currently on cipro and flagyl Hypomagnesemia - 1.9 - replace PO Diet: Regular diet DVT Proph: SCD Resident Physician Supervision Note: I was present with PGY2 Dr. Dyllan Ramires during the history and exam. I discussed the case with the resident and agree with the findings and plan as documented in the note. Any exceptions or clarifications are listed here: none. No abdominal pain today. Liquid stools still present but no blood. She overall "feels very good." No nausea/emesis. VSS no fever gen - nad, nontoxic mouth - MMM heart - RRR lungs - CTA b/l abd - soft, NT, ND, BS+ ext - no edema bmp - mild drop in HCO3 but rest of BMP is normal mag normal stool cx thus far negative A/P: colitis - ischemic vs infectious; favor former. c diff toxin and stool cx to date negative. obtain mesenteric duplex today but suspect will be normal as the abdominal vasculature was reported as normal on her admission CT. sed rate is <10 making IBD very unlikely (and clinical presentation would be unusual for IBD). cont IVF but cut rate by 1/2; advance diet. agree with changing abx and H2 richa to PO forms. likely d/c tomorrow. will recommend outpatient GI consultation for EGD (due to chronic belching & suspected gastritis/reflux) along with colonoscopy due to this incident. updated. Documented By: Garry Patel MD Continued [facility] stay due to: other
[2017-03-02] MEDS: RANITIDINE HCL 150 MG TAB PO SCH (19:44)
[2017-03-02] MEDS: METRONIDAZOLE 250 MG TAB PO SCH (19:44)
--- NOTE | 2017-03-02 21:13 | DIAGNOSTIC IMAGING REPORT ---
DOPPLER ULTRASOUND OF THE MAJOR MESENTERIC VESSELS CLINICAL HISTORY: Suspected ischaemic colitis, evaluate for atherosclerosis COMPARISON STUDY: CT of the abdomen and pelvis February 27, 2017. FINDINGS: No elevated velocities were identified within the major mesenteric vessels. Minimal atherosclerotic plaque is noted within the abdominal aorta. Proximal major mesenteric vessels are patent. IMPRESSION: No evidence of a hemodynamically significant stenosis within the major mesenteric vessels. Electronically signed by: Keenan Ashford M.D. 03/02/2017 9:11 PM Dictated Date/Time: 03/02/2017 9:09 PM
[2017-03-03] VITALS: BP 147/74; PULSE 59; TEMP 36.5; O2SAT 98
[2017-03-03] MEDS: NSS + 20MEQ KCL 1000ML 1,000 ML IV SCH (05:10)
[2017-03-03 07:23] VITALS: BP 137/78; PULSE 56; TEMP 36.7; O2SAT 96
[2017-03-03 07:47] LABS: BUN/CREATININE RATIO 9.3 (10-20); CALCIUM 8.3 mg/dl (8.5-10.1); CREATININE 0.5 mg/dl (0.60-1.20); MAGNESIUM 2.1 mg/dl (1.8-2.4); POTASSIUM 4.2 mmol/L (3.5-5.1)
[2017-03-03] MEDS: ESTROGENS, CONJUGATED 0.625 MG TAB PO SCH (07:47)
[2017-03-03] MEDS: RANITIDINE HCL 150 MG TAB PO SCH (07:47)
[2017-03-03] MEDS: MAGNESIUM OXIDE 400 MG TAB PO SCH (07:47)
[2017-03-03] MEDS: METRONIDAZOLE 250 MG TAB PO SCH (07:47)
[2017-03-03] MEDS ORDERED: CIPROFLOXACIN 500 MG TAB PO SCH (08:00)
[2017-03-03] MEDS ORDERED: CPR500 PO (10:53)
[2017-03-03] MEDS ORDERED: FLUC100T4 PO (10:53)
[2017-03-03] MEDS ORDERED: MTR250 PO (10:53)
[2017-03-03 11:06] VITALS: BP 137/78; PULSE 56; TEMP 36.7; O2SAT 96
[2017-03-03 13:39] LABS: O&P GIARDIA AG NOT DETECTED (NOT DETECTED)
--- NOTE | 2017-03-03 18:02 | Discharge Summary ---
Discharge Summary Date of Service Mar 03, 2017. (Dyllan Ramires MD) Discharge Summary Admission Date: Feb 27, 2017 at 03:21 Discharge Date: Mar 03, 2017 Discharge Disposition: Home Principal Diagnosis: GERD and Colitis (Dyllan Ramires MD) Problems/Secondary Diagnoses: pulmonary nodules hypomagnesemia - resolved Procedures: CT abd/pelvis: IMPRESSION: 1. Findings are consistent with a nonspecific colitis of the descending colon. This is likely on an infectious or inflammatory basis in this age group. 2. Mild sigmoid diverticulosis without CT evidence of acute diverticulitis. 3. There are least 5 pulmonary and pleural-based nodules at both lung bases measuring up to 7 mm. These are indeterminant and follow-up with a nonemergent chest CT is recommended for further assessment. (Garry Patel MD) Medication Reconciliation New Medications: Fluconazole (Diflucan) 100 Mg Tab 1 TAB PO DAILY for 7 Days, #7 TAB Ranitidine Hcl (Zantac) 150 Mg Tab 1 TAB PO BID for 30 Days, #60 TAB 3 Refills Ciprofloxacin (Ciprofloxacin HCl) 500 Mg Tab 500 MG PO DAILY for 7 Days, #7 TAB Metronidazole (Metronidazole) 250 Mg Tab 250 MG PO BID for 7 Days, #7 TAB Continued Medications: Estrogens, Conjugated (Premarin) 1.25 Mg Tab 1.25 MG PO DAILY Discharge Exam Patient feeling well, no more abdominal pain, nausea, vomiting or constipation Still have semi formed stool Is able to tolerate normal full diet Tolerating PO medications Review of Systems: Constitutional: No fever, No chills Respiratory: No cough, No sputum, No shortness of breath, No dyspnea on exertion Cardiovascular: No chest pain, No edema, No palpitations Abdomen: + diarrhea, No pain, No nausea, No vomiting, No constipation Genitourinary - Female: No dysuria, No urinary frequency Hematologic / Lymphatic: No abnormal bleeding/bruising, No clotting problems Integumentary: No rash, No itch, No new/changing skin lesions Physical Exam: General Appearance: WD/WN, no apparent distress ENT: hearing grossly normal, pharynx normal Respiratory/Chest: lungs clear, no respiratory distress, no accessory muscle use Cardiovascular: regular rate, rhythm, no edema, no murmur, normal peripheral pulses Abdomen / GI: normal bowel sounds, non tender, soft Extremities: normal inspection, no calf tenderness, no pedal edema, normal range of motion Neurologic/Psychiatric: alert, normal mood/affect, oriented x 3 Skin: normal color, warm/dry, no rash (Dyllan Ramires MD) Hospital Course The patient is a 51-year-old female who presented to the emergency department with approximately 24 hours of progressively worsening generalized abdominal pain and cramping. She had a CT scan done which showed a nonspecific colitis of the descending colon, mild diverticulosis and 5 pulmonary and pleural based nodules at both lung bases measuring up to 7mm. The patient was admitted to the medical surgical floor and was allowed clear fluids. She was also put on Zosyn, famotidine IV and morphine sulfate IV. During her hospital stay she continued to have diarrhea and abdominal pain and was unable to tolerate any food. She had stool cultures taken and was transitioned to cipro and flagyl IV. On day 3 of hospital admission she was transition from famotidine to IV zantac and that afternoon she started to feel much better. That evening she was able to tolerate a full liquid diet. On day 4 of hospitalization her medications were transitioned to oral and the patient was able to tolerate a regular diet. She also has a mesenteric US on day 4 which did not show any mesenteric atherosclerosis. She was discharged on which was day 5 of her hospital admission and before discharge her stool came back as growing new therefore she was discharged with 1 week of diflucan. It is likely that this patient had colitis as well as gastroesophageal reflux. She was discharged with 1 week of cipro, flagyl and diflucan and was also discharged with zantac. She will need a upper endoscopy and colonoscopy in 6-8 weeks. She will also need a repeat CT scan in 2-3 months to look at her lung nodules seen on CT. Total Time Spent: Less than 30 minutes This includes examination of the patient, discharge planning, medication reconciliation, and communication with other providers. (Dyllan Ramires MD) Resident Physician Supervision Note: I was present with PGY2 Dr. Dyllan Ramires during the discharge history and exam. I discussed the case with the resident and agree with the findings and plan as documented in the discharge summary. Any exceptions or clarifications are listed here: none. 51yo female who presented with left-sided abd pain, bloody stool, and diarrhea. Started very abruptly in the middle of the night on day of admission. No previous history of GI tract disorders, recent travel, or sick contacts. CT abd/pelvis with colitis as noted above in the imaging section of this summary. Treated conservatively with bowel rest, IVF, IV antibiotics, and pain medication. All symptoms gradually improved and she was resumed on a diet. She also appeared to have reflux and this was treated accordingly. Stool culture showed new but no enteric pathogens. C diff toxin was negative. Sed rate was <10. Her colitis was thought to be ischemic in origin but could not be proven by way of imaging (mesenteric doppler was negative, etc). IBD was felt highly unlikely and infectious etiology was also felt unlikely. Either way she will need outpatient colonoscopy in 6-8 weeks. EGD also was advised due to upper GI symptoms. Discharge exam: gen - nad mouth - MMM heart - RRR lungs - CTA b/l abd - soft, NT, ND, BS+, no HSM, no peritoneal signs ext - no edema She will d/c home on cipro, flagyl, and diflucan for the colitis. She will also need repeat imaging of the pulmonary nodules as seen on CT this admission. Documented By: Garry Patel MD (Garry Patel MD) Discharge Instructions Please refer to the electronic Patient Visit Report (Discharge Instructions) for additional information. (Dyllan Ramires MD) Additional Copies To Candy Slade M.D.
== END 2017-03-03 11:34 | disposition home or self-care (01) | DRG 392 ==
LOC: C.EDB 22:58 → C.4E 02-27 03:21 → ENRESERV 02-27 03:50
PROVIDERS: ADMIT Hospitalist; ATTEND Internal Medicine
DX: K52.9 Noninfective gastroenteritis and colitis, unspecified (principal); K29.50 Unspecified chronic gastritis without bleeding; K57.30 Diverticulosis of large intestine without perforation or abscess without bleeding; K21.9 Gastro-esophageal reflux disease without esophagitis; E83.42 Hypomagnesemia

== ENCOUNTER → 2017-05-06 | Outpatient (CLI) | payer BC ==
[~2017-05-06] MED LIST changes: -ATOR10TA88 PO; +CPR500 PO; +MTR250 PO; +OMEP40CA41 PO; +ONDA4TAB10 SL; -ONDA4TAB7 SL; +RANI150T3 PO
--- NOTE | 2017-05-06 08:58 | DIAGNOSTIC IMAGING REPORT ---
(CHEST) THORAX WITHOUT CLINICAL HISTORY: Pulmonary nodules COMPARISON STUDY: Abdominal CT scan dated 02/27/2017 CT DOSE: 383.87 mGycm TECHNIQUE: CT of the thorax was performed from the thoracic inlet to the lung bases. Images are reviewed in the axial, sagittal, and coronal planes. IV contrast was not administered for this examination. A dose lowering technique was utilized adhering to the principles of ALARA. FINDINGS: Thyroid: Imaged portions of the thyroid gland are normal in appearance. Thoracic aorta: The thoracic aorta is normal in course and caliber, noting standard 3 vessel arch anatomy. Heart: The heart is normal in size and configuration, without pericardial effusion. Lungs and pleural spaces: There are no pleural effusions. There is no focal pulmonary consolidation. There are scattered bilateral solid pulmonary nodules. The largest on the left is a 6 mm left lower lobe pulmonary nodule as visualized in image #[id number]. The largest on the right is a 4 mm subpleural right lower lobe pulmonary nodule as visualized on image #[id number] Mediastinum: There is no mediastinal lymphadenopathy. Deneen: There is no evidence of pathologic hilar adenopathy given the limitations of a noncontrast study Axilla: There is no pathologic adenopathy Upper abdomen: Partially visualized upper abdominal viscera is within normal limits. Skeletal structures: There are no lytic or blastic osseous lesions. There is a midline 11 mm subcutaneous nodule within the upper back, likely are presenting a sebaceous cyst IMPRESSION: Multiple bilateral subcentimeter solid pulmonary nodules, the largest of which measures 6 mm. A 6 month follow-up CT scan is recommended. Please refer to below summary of Fleischner criteria recommendations for follow-up of incidental CT nodules (Estephania Miramontes, Guidelines for management of small pulmonary nodules detected on CT scans: A statement from the Fleischner Society, Radiology 237: [phone].) SOLID NODULES Solitary nodule size: <6 mm * low risk patients: no follow-up needed * high risk patients: optional CT at 12 months Solitary nodule size: 6-8 mm * low risk patients: follow-up at 6-12 months, then consider further follow-up at 18-24 months * high risk patients: initial follow-up CT at 6-12 months and then at 18-24 months if no change Solitary nodule size: >8 mm * either low or high risk patients - consider follow-up CT at 3 months, and/or CT-PET, and/or biopsy Multiple nodules size: <6 mm * low risk patients: no routine follow-up * high risk patients: optional CT at 12 months Multiple nodules size: 6-8 mm * low risk patients: follow-up at 3-6 months, then consider further follow-up at 18-24 months * high risk patients: follow-up at 3-6 months, then at 18-24 months if no change Multiple nodules size: >8 mm * low risk patients: follow-up at 3-6 months, then consider further follow-up at 18-24 months * high risk patients: follow-up at 3-6 months, then at 18-24 months if no change Note: newly detected indeterminate nodule in persons 35 years of age or older. * low risk patients: minimal or absent history of smoking and/or other known risk factors * high risk patients: history of smoking or of other known risk factors (e.g. first degree relative with lung cancer, or exposure to asbestos, radon, uranium) * if a nodule up to 8 mm is partly solid or is ground glass further follow-up is required after 24 months to exclude possible slow growing adenocarcinoma (YEFIR) SUBSOLID NODULES Solitary pure ground-glass nodule * nodule size <6 mm - no CT follow-up required * nodule size >=6 mm - follow-up CT at 6-12 months, then every 2 years until 5 years Solitary part-solid nodule * nodule size <6 mm - no CT follow-up required * nodule size >=6 mm - follow-up CT at 3-6 months. If unchanged, and solid component remains <6 mm, then annual follow-up for 5 years Multiple subsolid nodules * nodule size <6 mm - follow-up CT at 3-6 months, consider further follow-up at 2 and 4 years if stable * nodule size >=6 mm - follow-up CT at 3-6 months, subsequent management based on the most suspicious nodule(s) Electronically signed by: Hang Ramos M.D. 05/06/2017 8:56 AM Dictated Date/Time: 05/06/2017 8:48 AM
== END | disposition home or self-care (01) ==
LOC: C.CTS 08:33
PROVIDERS: ATTEND Family Medicine
DX: R91.8 Other nonspecific abnormal finding of lung field (principal)

== ENCOUNTER 2017-05-27 16:07 | Emergency (ER) | payer BC ==
[~2017-05-27] VITALS: Ht 154.9 cm; Wt 61.7 kg
[~2017-05-27 16:07] MED LIST changes: -OMEP40CA41 PO; -ONDA4TAB10 SL
[2017-05-27 16:17] VITALS: TEMP 36.6; Ht 154.9 cm; Wt 61.7 kg
[2017-05-27] MEDS ORDERED: ONDANSETRON INJ 2 MG/ML 2 ML VIAL IV STA (16:26)
[2017-05-27] MEDS ORDERED: SODIUM CHLORIDE 0.9% 1000ML 1,000 ML IV STA ×2 (16:26→17:37)
[2017-05-27] MEDS ORDERED: FAMOTIDINE 20MG/102 ML D5W IV STA (16:26)
--- NOTE | 2017-05-27 16:32 | EMERGENCY ROOM VISIT NOTE ---
History Report prepared by Cam: Radha Sawyer Under the Supervision of: Dr. Pipo Ragland M.D. First contact with patient: 16:21 Chief Complaint: ABDOMINAL PAIN Stated Complaint: STOMACH PAIN History of Present Illness The patient is a 51 year old female who presents to the Emergency Room with complaints of sudden abdominal pain beginning at 0630 this morning. The patient states that she forgot to take her Zantac this morning, but that she took it when she got home from work at 1205, but was still having abdominal pain. She reports having diarrhea, nauseous and vomiting once. She states that her vomit was green and had mucous in it. The patient states that she has not eaten since 1700 yesterday. The patient reports that she was in the hospital in February for colitis, but that her symptoms today feel different. She denies having fevers, chills, a cough, shortness of breath, headache, and constipation. She states that she has a history of a hysterectomy, but denies a history of gallstones. Source of History: patient Onset: 0630 this morning Position: abdomen Timing: other (sudden) Associated Symptoms: + nausea, + vomiting, + diarrhea, No fevers, No chills , No headache, No cough, No SOB Review of Systems See HPI for pertinent positives and negatives. A total of ten systems were reviewed and were otherwise negative. Past Medical & Surgical Medical Problems: (1) Colitis Surgical Problems: (1) History of hysterectomy Family History No pertinent family history Social History Smoking Status: Former Smoker Drug Use: none Marital Status: Housing Status: lives with family Occupation Status: employed Current/Historical Medications Scheduled Estrogens, Conjugated (Premarin), 1.25 MG PO DAILY Omeprazole (Prilosec), 40 MG PO DAILY Ondasetron Odt (Zofran Odt), 4 MG SL Q6H Ranitidine Hcl (Zantac), 1 TAB PO BID Allergies Coded Allergies: No Known Allergies (Unverified , 05/27/17) Physical Exam Vital Signs Date Time Temp Pulse Resp B/P (MAP) Pulse Ox O2 Delivery O2 Flow Rate FiO2 05/27/17 20:14 58 16 153/78 98 05/27/17 19:14 70 18 129/81 96 Room Air 05/27/17 17:48 54 16 122/58 98 Room Air 05/27/17 16:47 55 05/27/17 16:17 36.6 71 16 133/64 98 Room Air Physical Exam GENERAL: Awake, alert, uncomfortable appearing, in no acute distress. HENT: Normocephalic, atraumatic. Oropharynx unremarkable. Dry mucous membranes. EYES: Normal conjunctiva. Sclera non-icteric. NECK: Supple. No nuchal rigidity. FROM. No JVD. RESPIRATORY: Clear to auscultation. CARDIAC: Regular rate, normal rhythm. Extremities warm and well perfused. Pulses equal. ABDOMEN: Soft, non-distended. Mild epigastric tenderness to palpation. Negative Castro's sign. No peritoneal signs. No rebound or guarding. No masses. RECTAL: Deferred. MUSCULOSKELETAL: Chest examination reveals no tenderness. The back is symmetrical on inspection without obvious abnormality. There is no CVA tenderness to palpation. No joint edema. LOWER EXTREMITIES: Calves are equal size bilaterally and non-tender. No edema. No discoloration. NEURO: Normal sensorium. No sensory or motor deficits noted. SKIN: No rash or jaundice noted. Medical Decision & Procedures ER Provider Diagnostic Interpretation: X-ray: Per my interpretation, radiologist review. CHEST ONE VIEW PORTABLE HISTORY: epigastric pain COMPARISON: Chest CTA 05/06/2017. Chest 01/19/2014. FINDINGS: The lungs are clear. Cardiac silhouette is normal in size. No pleural effusions. No pneumothorax. The subcentimeter pulmonary nodules seen on the recent chest CT are too small to identify by this modality. IMPRESSION: No acute process. Electronically signed by: Mikhail Eduardo M.D. 05/27/2017 4:44 PM Dictated Date/Time: 05/27/2017 4:43 PM Laboratory Results 05/27/17 16:44 Red Blood Count 4.90, Mean Corpuscular Volume 86.5, Mean Corpuscular Hemoglobin 30.0, Mean Corpuscular Hemoglobin Concent 34.7, Mean Platelet Volume 10.0, Neutrophils (%) (Auto) 77.3, Lymphocytes (%) (Auto) 14.2, Monocytes (%) (Auto) 6.2, Eosinophils (%) (Auto) 1.6, Basophils (%) (Auto) 0.4, Neutrophils # (Auto) 8.14, Lymphocytes # (Auto) 1.49, Monocytes # (Auto) 0.65, Eosinophils # (Auto) 0.17, Basophils # (Auto) 0.04 05/27/17 16:44 Test 05/27/17 16:44 05/27/17 17:53 White Blood Count 10.52 K/uL (4.8-10.8) Red Blood Count 4.90 M/uL (4.2-5.4) Hemoglobin 14.7 g/dL (12.0-16.0) Hematocrit 42.4 % (37-47) Mean Corpuscular Volume 86.5 fL (80-100) Mean Corpuscular Hemoglobin 30.0 pg (25-34) Mean Corpuscular Hemoglobin Concent 34.7 g/dl (32-36) Platelet Count 228 K/uL (130-400) Mean Platelet Volume 10.0 fL (7.4-10.4) Neutrophils (%) (Auto) 77.3 % Lymphocytes (%) (Auto) 14.2 % Monocytes (%) (Auto) 6.2 % Eosinophils (%) (Auto) 1.6 % Basophils (%) (Auto) 0.4 % Neutrophils # (Auto) 8.14 K/uL (1.4-6.5) Lymphocytes # (Auto) 1.49 K/uL (1.2-3.4) Monocytes # (Auto) 0.65 K/uL (0.11-0.59) Eosinophils # (Auto) 0.17 K/uL (0-0.5) Basophils # (Auto) 0.04 K/uL (0-0.2) RDW Standard Deviation 40.6 fL (36.4-46.3) RDW Coefficient of Variation 12.8 % (11.5-14.5) Immature Granulocyte % (Auto) 0.3 % Immature Granulocyte # (Auto) 0.03 K/uL (0.00-0.02) Anion Gap 8.0 mmol/L (3-11) Est Creatinine Clear Calc Drug Dose 85.9 ml/min Estimated GFR () 119.4 Estimated GFR (Non- 103.0 BUN/Creatinine Ratio 20.8 (10-20) Calcium Level 8.7 mg/dl (8.5-10.1) Total Bilirubin 0.5 mg/dl (0.2-1) Direct Bilirubin < 0.1 mg/dl (0-0.2) Aspartate Amino Transf (AST/SGOT) 13 U/L (15-37) Alanine Aminotransferase (ALT/SGPT) 19 U/L (12-78) Alkaline Phosphatase 88 U/L (45-117) Troponin I < 0.015 ng/ml (0-0.045) Total Protein 7.2 gm/dl (6.4-8.2) Albumin 3.5 gm/dl (3.4-5.0) Lipase 143 U/L (73-393) Urine Color YELLOW Urine Appearance CLEAR (CLEAR) Urine pH 5.0 (4.5-7.5) Urine Specific [place] 1.016 (1.000-1.030) Urine Protein NEG (NEG) Urine Glucose (UA) NEG (NEG) Urine Ketones NEG (NEG) Urine Occult Blood TRACE (NEG) Urine Nitrite NEG (NEG) Urine Bilirubin NEG (NEG) Urine Urobilinogen NEG (NEG) Urine Leukocyte Esterase NEG (NEG) Urine WBC (Auto) 0 /hpf (0-5) Urine RBC (Auto) 0-4 /hpf (0-4) Urine Hyaline Casts (Auto) 1-5 /lpf (0-5) Urine Epithelial Cells (Auto) 20-30 /lpf (0-5) Urine Bacteria (Auto) NEG (NEG) Laboratory results reviewed by me Medications Administered Medications (Trade) Dose Ordered Sig/Panchito Route Start Time Stop Time Status Last Admin Dose Admin Sodium Chloride 1,000 ml @ 999 mls/hr Q1H1M STAT IV 05/27/17 16:26 05/27/17 17:26 DC 05/27/17 16:47 999 MLS/HR Ondansetron HCl (Zofran Inj) 4 mg NOW STAT IV 05/27/17 16:26 05/27/17 16:31 DC 05/27/17 16:47 4 MG Famotidine (Pepcid 20mg/100 ml) 20 mg ONE STAT IV 05/27/17 16:26 05/27/17 16:31 DC 05/27/17 16:47 20 MG Sodium Chloride 1,000 ml @ 999 mls/hr Q1H1M STAT IV 05/27/17 17:37 05/27/17 18:37 DC 05/27/17 17:37 999 MLS/HR Lidocaine HCl (Viscous Lidocaine 2% Soln) 20 ml STK-MED ONCE .ROUTE 05/27/17 19:04 05/27/17 19:05 DC 05/27/17 19:10 20 ML Al Hydroxide/Mg Hydroxide (Maalox Susp) 30 ml STK-MED ONCE .ROUTE 05/27/17 19:04 05/27/17 19:05 DC 05/27/17 19:09 30 ML Ondansetron HCl (ZOFRAN ODT 4MG Home Pack) 1 homepack STK-MED ONCE .ROUTE 05/27/17 20:20 05/27/17 20:21 DC 05/27/17 20:00 1 HOMEPACK ECG Indication: abdominal pain Rate (beats per minute): 55 Rhythm: sinus bradycardia Findings: no acute ischemic change, left axis deviation ED Course 162: The patient was evaluated in room C3. A complete history and physical exam was performed. 162: Ordered Famotidine 20 mg IV, Ondansetron HCl 4 mg IV, Sodium Chloride 1, 000 ml @ 999 mls/hr IV. 173: Ordered Sodium Chloride 1,000 ml @ 999 mls/hr IV. 1827: I reassessed the patient and she is feeling better. Her nausea and vomiting are gone. She agrees to a GI cocktail over a CT scan. 1854: Ordered GI Cocktail 24 ml PO. 1903: Ordered Lidocaine HCl 20 ml. 1939: The patient reports feeling better. 1999: I reevaluated the patient. Discussed results and discharge instructions: She verbalized understanding and agreement. The patient is ready for discharge. Medical Decision I reviewed the patient's past medical history, medications, and the nursing notes as described above. Differentials include: gastritis, gastroenteritis, biliary etiology, pancreatitis, bowel obstruction, pneumonia, bronchitis, and ACS. The patient is a 51-year-old woman with a past medical history of reflux who presents emergency Department with upper abdominal pain nausea and vomiting since this morning. History of present illness. Arrival the patient appears uncomfortable but in no acute distress. Mild tenderness to the epigastrium. Labs unremarkable including WBC and LFTs within normal limits. She reassessed and improved after IV fluids, Pepcid and Zofran. Additionally, felt relief with GI cocktail. Patient affirms that her symptoms today were unlike her symptoms previously when she was diagnosed with colitis, as her discomfort is all in her upper abdomen. Thus, she is agreeable that a CT scan is not necessary at this time particularly since she has improved. Findings and plan for follow-up d/w patient. Patient agreeable and d/c'd per discharge instructions. Medication Reconcilliation Current Medication List: was personally reviewed by me Blood Pressure Screening Patient's blood pressure: Normal blood pressure Impression Primary Impression: Gastritis Scribe Attestation The scribe's documentation has been prepared under my direction and personally reviewed by me in its entirety. I confirm that the note above accurately reflects all work, treatment, procedures, and medical decision making performed by me. Departure Information Dispostion Home / Self-Care Prescriptions Ondasetron Odt (ZOFRAN ODT) 4 Mg Tab 4 MG SL Q6H for Nausea, #6 TAB Prov: Pipo Ragland M.D. 05/27/17 Omeprazole (PRILOSEC) 40 Mg Cap 40 MG PO DAILY for 14 Days, #14 CAP Prov: Pipo Ragland M.D. 05/27/17 Referrals No Doctor, Assigned (PCP) Forms Call Back Authorization, HOME CARE DOCUMENTATION FORM, IMPORTANT VISIT INFORMATION Patient Instructions ED Diet Brat Expanded Ch, ED Gastritis, ED PUD Vs Gastritis, My [facility] Additional Instructions Please follow up with your primary care physician in the next 1-3 days for re- evaluation. You likely have a gastritis, which will resolved with time. Otherwise, your exam, EKG, chest xray, and lab results did not show signs of an emergent condition at this time. Continue your Zantac. Take omeprazole for additional relief. Drink plenty of fluids to ensure hydration. BRAT diet. Return to the emergency department for worsening symptoms as described in the accompanying instructions.
--- NOTE | 2017-05-27 16:45 | DIAGNOSTIC IMAGING REPORT ---
CHEST ONE VIEW PORTABLE HISTORY: epigastric pain COMPARISON: Chest CTA 05/06/2017. Chest 01/19/2014. FINDINGS: The lungs are clear. Cardiac silhouette is normal in size. No pleural effusions. No pneumothorax. The subcentimeter pulmonary nodules seen on the recent chest CT are too small to identify by this modality. IMPRESSION: No acute process. Electronically signed by: Mikhail Eduardo M.D. 05/27/2017 4:44 PM Dictated Date/Time: 05/27/2017 4:43 PM
[2017-05-27 17:01] LABS: BASO % 0.4 %; BASO ABS # 0.04 K/uL (0-0.2); COMPLETE YES; EOS % 1.6 %; HEMATOCRIT 42.4 % (37-47); IG% 0.3 %; LYMPH % 14.2 %; LYMPH ABS # 1.49 K/uL (1.2-3.4); MEAN CELL VOLUME 86.5 fL (80-100); MEAN CORPUSCULAR HGB CONC 34.7 g/dl (32-36); MONO % 6.2 %; NEUT % 77.3 %; PLATELET COUNT 228 K/uL (130-400); WHITE BLOOD COUNT 10.52 K/uL (4.8-10.8)
[2017-05-27 17:19] LABS: ALT/SGPT 19 U/L (12-78); AST/SGOT 13 U/L (15-37); BLOOD UREA NITROGEN 14 mg/dl (7-18); BUN/CREATININE RATIO 20.8 (10-20); CALCIUM 8.7 mg/dl (8.5-10.1); CARBON DIOXIDE 23 mmol/L (21-32); CHLORIDE 110 mmol/L (98-107); CREATININE 0.66 mg/dl (0.60-1.20); GLUCOSE 89 mg/dl (70-99); POTASSIUM 3.9 mmol/L (3.5-5.1); SODIUM 141 mmol/L (136-145)
[2017-05-27 17:24] LABS: ALKALINE PHOSPHATASE 88 U/L (45-117)
[2017-05-27 18:24] LABS: URINE APPEARANCE CLEAR (CLEAR); URINE BILIRUBIN NEG (NEG); URINE COLOR YELLOW; URINE EPITHELIAL CELL AUTO 20-30 /lpf (0-5); URINE NITRITE NEG (NEG); URINE SPECIFIC GRAVITY 1.016 (1.000-1.030); UROBILINOGEN NEG (NEG); ZZUR CULT IF INDIC CLEAN CATCH NO
[2017-05-27 18:29] LABS: MANUAL MICROSCOPIC REQUIRED? NO; REVIEW REQ? NO
[2017-05-27] MEDS ORDERED: GI COCKTAIL PO STA (18:55)
[2017-05-27] MEDS ORDERED: ALUMINUM/MAGNESIUM SUSP 30 ML UDC ONE (19:04)
[2017-05-27] MEDS ORDERED: LIDOCAINE HCL 2% VISC SOLN 20 ML UDC ONE (19:04)
[2017-05-27] MEDS ORDERED: OMEP40CA41 PO (19:53)
[2017-05-27 20:14] VITALS: BP 153/78; PULSE 58; O2SAT 98
[2017-05-27] MEDS ORDERED: ONDANSETRON HOME PACK 4MG OD TAB ONE (20:20)
[2017-05-27] MEDS ORDERED: ONDA4TAB10 SL (20:24)
[2017-05-27] MEDS ORDERED: ONDANSETRON HOME PACK 4MG OD TAB PO ONE (20:30)
== END 2017-05-27 20:14 | disposition home or self-care (01) ==
LOC: C.EDB 16:08 → C.EDC 20:14
DX: K29.70 Gastritis, unspecified, without bleeding (principal); K52.9 Noninfective gastroenteritis and colitis, unspecified; Z87.891 Personal history of nicotine dependence

== ENCOUNTER 2017-10-10 19:58 | Emergency (ER) | payer BC, OTHER ==
[~2017-10-10] VITALS: Ht 154.9 cm; Wt 62.7 kg
[~2017-10-10 19:58] MED LIST changes: -CPR500 PO; -MTR250 PO; +ONDA4TAB10 SL
[2017-10-10 20:32] VITALS: TEMP 36.9; Ht 154.9 cm; Wt 62.7 kg
[2017-10-10] MEDS ORDERED: ONDANSETRON INJ 2 MG/ML 2 ML VIAL ONE (21:25)
[2017-10-10] MEDS ORDERED: KETOROLAC TROMETHAMINE 30 MG/ML VIAL IV STA (21:39)
--- NOTE | 2017-10-10 21:40 | EMERGENCY ROOM VISIT NOTE ---
History Report prepared by Cam: Darius Sims Under the Supervision of: Dr. Jm Magallanes M.D. First contact with patient: 21:36 Chief Complaint: VOMITING Stated Complaint: THROWING UP,STOMACH DISCOMFORT Nursing Triage Summary: patient woke this am and started with vomiting and upper quadrant abdominal pain. states the vomiting has been non stop and unable to keep anything down. states she only had one episode of diarrhea and that was it History of Present Illness The patient is a 52 year old female who presents to the Emergency Room with complaints of a persistent illness that started this morning. She says that she has been having abdominal pain and has been vomiting a lot. She notes that she has been unable to keep anything down. The patient says that she has been able to move her bowels, and has had a bit of diarrhea. She denies any recent unusual food choices. The patient notes a history of a hysterectomy, but still has her gallbladder and appendix. Source of History: patient Onset: This morning Position: other (global - illness) Symptom Intensity: unable to keep anything down Timing: other (persistent) Associated Symptoms: + vomiting, + abdominal pain, + diarrhea Note: No other associated symptoms noted. Review of Systems See HPI for pertinent positives & negatives. A total of 10 systems reviewed and were otherwise negative. Past Medical & Surgical Medical Problems: (1) Colitis Surgical Problems: (1) History of hysterectomy Family History No pertinent family history Social History Smoking Status: Never Smoker Drug Use: none Marital Status: Housing Status: lives with family Occupation Status: employed Current/Historical Medications Scheduled Estrogens, Conjugated (Premarin), 1.25 MG PO DAILY Ondasetron Odt (Zofran Odt), 4 MG SL Q6H Allergies Coded Allergies: No Known Allergies (Unverified , 10/10/17) Physical Exam Vital Signs Date Time Temp Pulse Resp B/P (MAP) Pulse Ox O2 Delivery O2 Flow Rate FiO2 10/10/17 23:43 66 20 129/66 97 Room Air 10/10/17 22:52 62 20 115/67 97 Room Air 10/10/17 21:36 79 20 132/56 96 Room Air 10/10/17 20:32 36.9 79 18 136/66 99 Room Air Physical Exam GENERAL: Patient is a healthy-appearing well-nourished 52 year old female. HEAD: Normocephalic atraumatic EYES: Ocular movements intact pupils equal and react to light OROPHARYNX mucous membranes are moist no exudates present no erythema or edema present NECK: Supple no nuchal rigidity CHEST: Good equal expansion LUNGS: Clear and equal to auscultation CARDIAC: Normal S1 and S2 ABDOMEN: Soft, tender in the right upper quadrant, no guarding BACK: No CVA tenderness EXTREMITIES: No pain upon palpation normal muscle strength in all groups no clubbing cyanosis or edema NEURO: Patient is following commands and answering questions appropriately. Alert and oriented x3 Cranial Nerves 2-12 grossly intact Medical Decision & Procedures ER Provider Diagnostic Interpretation: Radiology results as stated below per my review and radiologist interpretation: ABDOMEN 2VIEW W/PA CHEST RTN HISTORY: 52 years-old Female Pt c/o RUQ abd pain acute right upper quadrant abdominal pain COMPARISON: Chest radiograph 05/27/2017 TECHNIQUE: PA view of the chest with erect and supine views of the abdomen FINDINGS: Cardiomediastinal and hilar silhouettes are within normal limits. There is no pneumothorax, pleural effusion, focal airspace consolidation or overt pulmonary edema. Bones of the chest appear grossly intact. No pneumoperitoneum on the upright projection. The bowel gas pattern appears nonobstructive. No urolith or acute fracture identified. IMPRESSION: 1. No acute process of the chest. 2. Nonobstructive bowel gas pattern without pneumoperitoneum. The above report was generated using voice recognition software. It may contain grammatical, syntax or spelling errors. Electronically signed by: Wayne Mckeon M.D. 10/10/2017 10:50 PM Dictated Date/Time: 10/10/2017 10:49 PM ABDOMEN LIMITED (US) HISTORY: 52 years-old Female Pt c/o RUQ abd pain acute right upper quadrant abdominal pain COMPARISON: CT abdomen and pelvis 02/27/2017, acute abdominal series radiographs 10/10/2017 TECHNIQUE: Multiple real-time sonographic images of the abdominal right upper quadrant were obtained assessing grayscale appearance and color flow FINDINGS: Pancreatic body and tail are mostly obscured by bowel gas. Pancreas is otherwise unremarkable. The liver is within normal limits without focal mass or intrahepatic biliary ductal dilation. The gallbladder is unremarkable without shadowing cholelithiasis, wall thickening or pericholecystic fluid collections. Common bile duct is normal, 3 mm. The right kidney is unremarkable without hydronephrosis measuring up to 10.0 cm in length. IMPRESSION: 1. Unremarkable appearance of the gallbladder without cholelithiasis or sonographic evidence of acute cholecystitis. 2. No biliary ductal dilation. The above report was generated using voice recognition software. It may contain grammatical, syntax or spelling errors. Electronically signed by: Wayne Mckeon M.D. 10/10/2017 10:42 PM Dictated Date/Time: 10/10/2017 10:40 PM Laboratory Results 10/10/17 21:25 Red Blood Count 5.21, Mean Corpuscular Volume 87.1, Mean Corpuscular Hemoglobin 30.7, Mean Corpuscular Hemoglobin Concent 35.2, Mean Platelet Volume 10.7, Neutrophils (%) (Auto) 90.0, Lymphocytes (%) (Auto) 6.2, Monocytes (%) (Auto) 3.5, Eosinophils (%) (Auto) 0.0, Basophils (%) (Auto) 0.1, Neutrophils # (Auto) 8.90, Lymphocytes # (Auto) 0.61, Monocytes # (Auto) 0.35, Eosinophils # (Auto) 0.00, Basophils # (Auto) 0.01 10/10/17 21:25 Test 10/10/17 21:25 10/10/17 22:50 White Blood Count 9.89 K/uL (4.8-10.8) Red Blood Count 5.21 M/uL (4.2-5.4) Hemoglobin 16.0 g/dL (12.0-16.0) Hematocrit 45.4 % (37-47) Mean Corpuscular Volume 87.1 fL (80-100) Mean Corpuscular Hemoglobin 30.7 pg (25-34) Mean Corpuscular Hemoglobin Concent 35.2 g/dl (32-36) Platelet Count 256 K/uL (130-400) Mean Platelet Volume 10.7 fL (7.4-10.4) Neutrophils (%) (Auto) 90.0 % Lymphocytes (%) (Auto) 6.2 % Monocytes (%) (Auto) 3.5 % Eosinophils (%) (Auto) 0.0 % Basophils (%) (Auto) 0.1 % Neutrophils # (Auto) 8.90 K/uL (1.4-6.5) Lymphocytes # (Auto) 0.61 K/uL (1.2-3.4) Monocytes # (Auto) 0.35 K/uL (0.11-0.59) Eosinophils # (Auto) 0.00 K/uL (0-0.5) Basophils # (Auto) 0.01 K/uL (0-0.2) RDW Standard Deviation 42.4 fL (36.4-46.3) RDW Coefficient of Variation 13.2 % (11.5-14.5) Immature Granulocyte % (Auto) 0.2 % Immature Granulocyte # (Auto) 0.02 K/uL (0.00-0.02) Anion Gap 12.0 mmol/L (3-11) Est Creatinine Clear Calc Drug Dose 85.5 ml/min Estimated GFR () 118.5 Estimated GFR (Non- 102.3 BUN/Creatinine Ratio 18.2 (10-20) Calcium Level 8.9 mg/dl (8.5-10.1) Total Bilirubin 0.7 mg/dl (0.2-1) Aspartate Amino Transf (AST/SGOT) 12 U/L (15-37) Alanine Aminotransferase (ALT/SGPT) 19 U/L (12-78) Alkaline Phosphatase 105 U/L (45-117) Total Protein 8.0 gm/dl (6.4-8.2) Albumin 3.4 gm/dl (3.4-5.0) Globulin 4.6 gm/dl (2.5-4.0) Albumin/Globulin Ratio 0.7 (0.9-2) Lipase 103 U/L (73-393) Urine Color YELLOW Urine Appearance CLEAR (CLEAR) Urine pH 5.0 (4.5-7.5) Urine Specific [place] 1.031 (1.000-1.030) Urine Protein NEG (NEG) Urine Glucose (UA) NEG (NEG) Urine Ketones 1+ (NEG) Urine Occult Blood 1+ (NEG) Urine Nitrite NEG (NEG) Urine Bilirubin NEG (NEG) Urine Urobilinogen NEG (NEG) Urine Leukocyte Esterase NEG (NEG) Urine WBC (Auto) 1-5 /hpf (0-5) Urine RBC (Auto) 5-10 /hpf (0-4) Urine Hyaline Casts (Auto) 1-5 /lpf (0-5) Urine Epithelial Cells (Auto) >30 /lpf (0-5) Urine Bacteria (Auto) NEG (NEG) Labs reviewed by ED physician. Medications Administered Medications (Trade) Dose Ordered Sig/Panchito Route Start Time Stop Time Status Last Admin Dose Admin Ondansetron HCl (Zofran Inj) 4 mg STK-MED ONCE .ROUTE 10/10/17 21:25 10/10/17 21:26 DC 10/10/17 21:27 4 MG Ketorolac Tromethamine (Toradol Inj) 30 mg NOW STAT IV 10/10/17 21:39 10/10/17 21:40 DC 10/10/17 21:47 30 MG Ondansetron HCl (ZOFRAN ODT 4MG Home Pack) 1 homepack UD STAT PO 10/10/17 23:14 10/10/17 23:16 DC 10/10/17 23:43 1 HOMEPACK ED Course 2138: Past medical records reviewed. The patient was evaluated in room B11B. A complete history and physical examination was performed. Ordered Toradol Inj 30 mg IV. 2138: Ordered Toradol Inj 30 mg IV. 2313: Ordered Zofran ODT 4MG Home Pack 1 homepack PO. 5: Upon reexamination the patient is resting comfortably. I discussed results and treatment plan with the patient. She verbalizes agreement and understanding. The patient is ready for discharge. Medical Decision Differential diagnosis: Etiologies such as appendicitis, diverticulitis, PUD, biliary pathology, UTI, pancreatitis, obstruction, mesenteric ischemia, aortic pathology, infections, inflammatory bowel disease, renal colic, as well as others were entertained. This is a 52-year-old female who presents emergency department complaining of vomiting. Serial abdominal examinations were performed on the patient in the emergency department and at no tender the patient exhibit a surgical abdomen. She has very mild abdominal tenderness in the right upper quadrant therefore she was sent for an ultrasound. This did not show any acute process. In addition the patient was sent for x-rays. Based on the fact that the patient was given Zofran and Toradol in the emergency department and she now has a benign abdominal examination I feel she can be safely discharged home. Patient was in agreement with the treatment plan. Medication Reconcilliation Current Medication List: was personally reviewed by me Blood Pressure Screening Patient's blood pressure: Elevated blood pressure Blood pressure disposition: Elevated BP felt to be situational Impression Primary Impression: Vomiting Scribe Attestation The scribe's documentation has been prepared under my direction and personally reviewed by me in its entirety. I confirm that the note above accurately reflects all work, treatment, procedures, and medical decision making performed by me. Departure Information Dispostion Home / Self-Care Prescriptions Ondasetron Odt (ZOFRAN ODT) 4 Mg Tab 4 MG SL Q6H for Nausea, #6 TAB Prov: Jm Magallanes MD 10/10/17 Referrals No Doctor, Assigned (PCP) Norma Lujan, DO Forms HOME CARE DOCUMENTATION FORM, IMPORTANT VISIT INFORMATION, School Instructions, Work Instructions Patient Instructions ED Gastritis, Gastritis Tx, My [facility] Additional Instructions You have been examined and treated today on an emergency basis only. This is not a substitute for, or an effort to provide, complete comprehensive medical care. It is impossible to recognize and treat all injuries or illnesses in a single emergency department visit. It is therefore important that you follow up closely with Dr Lujan. Call as soon as possible for an appointment. Thank you for your time and consideration. I look forward to speaking with you again soon. Please don't hesitate to call us if you have any questions. Problem Qualifiers Primary Impression: Vomiting Vomiting type: unspecified Vomiting Intractability: unspecified Nausea presence: unspecified Qualified Codes: R11.10 - Vomiting, unspecified
[2017-10-10 21:43] LABS: BASO % 0.1 %; BASO ABS # 0.01 K/uL (0-0.2); HEMATOCRIT 45.4 % (37-47); IG# 0.02 K/uL (0.00-0.02); LYMPH % 6.2 %; LYMPH ABS # 0.61 K/uL (1.2-3.4); MEAN CELL VOLUME 87.1 fL (80-100); MEAN CORPUSCULAR HEMOGLOBIN 30.7 pg (25-34); MEAN CORPUSCULAR HGB CONC 35.2 g/dl (32-36); MEAN PLATELET VOLUME 10.7 fL (7.4-10.4); MONO % 3.5 %; MONO ABS # 0.35 K/uL (0.11-0.59); PLATELET COUNT 256 K/uL (130-400); RED CELL DISTRIBUTION WIDTH CV 13.2 % (11.5-14.5); RED CELL DISTRIBUTION WIDTH SD 42.4 fL (36.4-46.3); WHITE BLOOD COUNT 9.89 K/uL (4.8-10.8)
[2017-10-10 21:59] LABS: POTASSIUM 3.9 mmol/L (3.5-5.1)
[2017-10-10 22:05] LABS: ALBUMIN 3.4 gm/dl (3.4-5.0); CALCIUM 8.9 mg/dl (8.5-10.1); CREATININE 0.66 mg/dl (0.60-1.20)
--- NOTE | 2017-10-10 22:43 | DIAGNOSTIC IMAGING REPORT ---
ABDOMEN LIMITED (US) HISTORY: 52 years-old Female Pt c/o RUQ abd pain acute right upper quadrant abdominal pain COMPARISON: CT abdomen and pelvis 02/27/2017, acute abdominal series radiographs 10/10/2017 TECHNIQUE: Multiple real-time sonographic images of the abdominal right upper quadrant were obtained assessing grayscale appearance and color flow FINDINGS: Pancreatic body and tail are mostly obscured by bowel gas. Pancreas is otherwise unremarkable. The liver is within normal limits without focal mass or intrahepatic biliary ductal dilation. The gallbladder is unremarkable without shadowing cholelithiasis, wall thickening or pericholecystic fluid collections. Common bile duct is normal, 3 mm. The right kidney is unremarkable without hydronephrosis measuring up to 10.0 cm in length. IMPRESSION: 1. Unremarkable appearance of the gallbladder without cholelithiasis or sonographic evidence of acute cholecystitis. 2. No biliary ductal dilation. The above report was generated using voice recognition software. It may contain grammatical, syntax or spelling errors. Electronically signed by: Wayne Mckeon M.D. 10/10/2017 10:42 PM Dictated Date/Time: 10/10/2017 10:40 PM
--- NOTE | 2017-10-10 22:51 | DIAGNOSTIC IMAGING REPORT ---
ABDOMEN 2VIEW W/PA CHEST RTN HISTORY: 52 years-old Female Pt c/o RUQ abd pain acute right upper quadrant abdominal pain COMPARISON: Chest radiograph 05/27/2017 TECHNIQUE: PA view of the chest with erect and supine views of the abdomen FINDINGS: Cardiomediastinal and hilar silhouettes are within normal limits. There is no pneumothorax, pleural effusion, focal airspace consolidation or overt pulmonary edema. Bones of the chest appear grossly intact. No pneumoperitoneum on the upright projection. The bowel gas pattern appears nonobstructive. No urolith or acute fracture identified. IMPRESSION: 1. No acute process of the chest. 2. Nonobstructive bowel gas pattern without pneumoperitoneum. The above report was generated using voice recognition software. It may contain grammatical, syntax or spelling errors. Electronically signed by: Wayne Mckeon M.D. 10/10/2017 10:50 PM Dictated Date/Time: 10/10/2017 10:49 PM
[2017-10-10] MEDS ORDERED: ONDANSETRON HOME PACK 4MG OD TAB PO STA (23:14)
[2017-10-10] MEDS ORDERED: ONDA4TAB10 SL (23:15)
[2017-10-10 23:43] VITALS: BP 129/66; PULSE 66; O2SAT 97
== END 2017-10-10 23:50 | disposition home or self-care (01) ==
LOC: C.EDB 20:00
DX: R11.10 Vomiting, unspecified (principal); R10.10 Upper abdominal pain, unspecified; Z90.710 Acquired absence of both cervix and uterus; Z79.890 Hormone replacement therapy

== ENCOUNTER → 2017-11-03 | Outpatient (CLI) | payer OTHER ==
[~2017-11-03] MED LIST changes: -RANI150T3 PO
--- NOTE | 2017-11-03 13:08 | DIAGNOSTIC IMAGING REPORT ---
CT SCAN OF THE CHEST WITHOUT IV CONTRAST CLINICAL HISTORY: Pulmonary nodule follow-up. COMPARISON STUDY: Chest CT dated 05/06/2017. TECHNIQUE: CT scan of the thorax was performed from the thoracic inlet to the upper abdomen. Images are reviewed in the axial, sagittal, and coronal planes. IV contrast was not administered for this examination as per the referring clinician. A dose lowering technique was utilized adhering to the principles of ALARA. CT DOSE: 244.31 mGycm FINDINGS: Thyroid: Imaged portions of the thyroid gland are normal in size and attenuation. Thoracic aorta: The thoracic aorta is normal in caliber and demonstrates standard 3-vessel arch anatomy. Heart: The heart is normal in size and without pericardial effusion. Lungs and pleural spaces: Mild emphysematous change is identified. There is no airspace consolidation or pleural effusion. The trachea and central airways are clear. Scattered pulmonary nodules are unchanged in size and position from 05/06/2017. The largest nodule in the left lower lobe as seen on image #183 and measures 7 mm. The largest nodule on the right is pleural-based in the lower lobe and measures 6 mm as seen on image #176. Additional 1 to 2 mm nodules are noted (right apex image #46, left lower lobe image #190, right middle lobe image #151). No new pulmonary nodule is identified. Mediastinum: There is no mediastinal lymphadenopathy. Deneen: Normal assessed without IV contrast. Axillae: There is no axillary lymphadenopathy. Upper abdomen: Partially visualized upper abdominal viscera is within normal limits. Skeletal structures: No lytic or blastic bony lesions are seen. Soft tissues: A sebaceous cyst is noted in the mid back on image #92. IMPRESSION: 1. Mild emphysema. 2. There are scattered pulmonary and pleural-based nodules measuring up to 7 mm. These are not significantly changed in size or distribution from 05/06/2017. These are pathologically indeterminant and continued follow-up is recommended as per the Fleischner criteria. See below. 3. There is no airspace consolidation or pleural effusion Please refer to below summary of Fleischner criteria recommendations for follow-up of incidental CT nodules (Estephania Miramontes, Guidelines for management of small pulmonary nodules detected on CT scans: A statement from the Fleischner Society, Radiology 237: [phone].) SOLID NODULES Solitary nodule size: <6 mm * low risk patients: no follow-up needed * high risk patients: optional CT at 12 months Solitary nodule size: 6-8 mm * low risk patients: follow-up at 6-12 months, then consider further follow-up at 18-24 months * high risk patients: initial follow-up CT at 6-12 months and then at 18-24 months if no change Solitary nodule size: >8 mm * either low or high risk patients - consider follow-up CT at 3 months, and/or CT-PET, and/or biopsy Multiple nodules size: <6 mm * low risk patients: no routine follow-up * high risk patients: optional CT at 12 months Multiple nodules size: 6-8 mm * low risk patients: follow-up at 3-6 months, then consider further follow-up at 18-24 months * high risk patients: follow-up at 3-6 months, then at 18-24 months if no change Multiple nodules size: >8 mm * low risk patients: follow-up at 3-6 months, then consider further follow-up at 18-24 months * high risk patients: follow-up at 3-6 months, then at 18-24 months if no change Note: newly detected indeterminate nodule in persons 35 years of age or older. * low risk patients: minimal or absent history of smoking and/or other known risk factors * high risk patients: history of smoking or of other known risk factors (e.g. first degree relative with lung cancer, or exposure to asbestos, radon, uranium) * if a nodule up to 8 mm is partly solid or is ground glass further follow-up is required after 24 months to exclude possible slow growing adenocarcinoma (YEFRI) SUBSOLID NODULES Solitary pure ground-glass nodule * nodule size <6 mm - no CT follow-up required * nodule size >=6 mm - follow-up CT at 6-12 months, then every 2 years until 5 years Solitary part-solid nodule * nodule size <6 mm - no CT follow-up required * nodule size >=6 mm - follow-up CT at 3-6 months. If unchanged, and solid component remains <6 mm, then annual follow-up for 5 years Multiple subsolid nodules * nodule size <6 mm - follow-up CT at 3-6 months, consider further follow-up at 2 and 4 years if stable * nodule size >=6 mm - follow-up CT at 3-6 months, subsequent management based on the most suspicious nodule(s) Electronically signed by: Joshua Bar M.D. 11/03/2017 1:07 PM Dictated Date/Time: 11/03/2017 12:59 PM
== END | disposition home or self-care (01) ==
LOC: C.CTS 12:50
PROVIDERS: ATTEND Family Medicine
DX: R91.8 Other nonspecific abnormal finding of lung field (principal)

== ENCOUNTER 2020-02-04 16:29 | Observation (INO) ==
--- OUTSIDE RECORDS SUMMARY | 2020-02-04 16:31 | External Medical Summary | Continuity of Care Document ---
:1965 Author Name James Hood, Provider Address Unavailable Unavailable , Care Team Providers Name Role Phone Unavailable Unavailable Unavailable PCP, UNKNOWN Unavailable Unavailable Problems Active medical history not documented Allergies and Adverse Reactions Allergy history not documented Medications Medications not documented Procedures Procedures not documented Immunizations Immunizations not documented Plan of Treatment Planned Observations Planned Goals not documented Results No Known Results Results not documented
[2020-02-04] MEDS ORDERED: MoRPHine SULFATE 10 MG/ML CARP/VIAL IV STA (17:18)
[2020-02-04] MEDS ORDERED: ONDANSETRON INJ 2 MG/ML 2 ML VIAL IV STA (17:18)
[2020-02-04] MEDS ORDERED: SODIUM CHLORIDE 0.9% 1000ML 2,000 ML IV ONE (17:18)
--- NOTE | 2020-02-04 17:18 | Emergency Department Note ---
Impression & Plan Colitis, Vomiting and diarrhea, Abdominal pain ED Provider Note NAME: JAE PENN AGE: 54 SEX: F : 1965 ARRIVES VIA: Walk-In INFORMANT: Patient ED PROVIDER(S): Del Jenkins DO CHIEF COMPLAINT: Abdominal pain HPI: Patient is a 54-year-old female with a past medical history of ischemic colitis who presents the ER for lower abdominal pain. It started at 4 AM. She denies any nausea or vomiting. She has had bright red blood per rectum. Pain is worse with movement and palpation. She did take some Advil with limited improvement. Pain is a 7 out of 10. There is no other radiation. No headache change in vision chest pain shortness of breath. Admits to a hysterectomy. Still has her appendix and gallbladder. ROS: See above HPI for pertinent positives & negatives. A total of 10 systems reviewed and were otherwise negative. PAST MEDICAL HISTORY:See Below PAST SURGICAL HISTORY:See Below FAMILY HISTORY:See Below SOCIAL HISTORY:See Below HOME MEDICATIONS:See Below ALLERGIES:See Below VITALS:See Below PHYSICAL EXAMINATION: GENERAL: Sitting up in bed, alert, well appearing, well nourished, no distress, non-toxic EYE EXAM: normal conjunctiva. OROPHARYNX: no exudate, no erythema, lips, buccal mucosa, and tongue normal and mucous membranes are moist NECK: supple, no nuchal rigidity, no adenopathy, non-tender LUNGS: Clear to auscultation. Normal chest wall mechanics HEART: no murmurs, S1 normal and S2 normal ABDOMEN: abdomen soft, faint tenderness and infraumbilical lower abdominal region, normo-active bowel sounds, no masses, no rebound or guarding. BACK: Back is symmetrical on inspection and there is no deformity, no midline tenderness, no CVA tenderness. SKIN: no rashes and no bruising UPPER EXTREMITIES: upper extremities are grossly normal. LOWER EXTREMITIES: No pitting edema. NEURO EXAM: Normal sensorium, cranial nerves II-XII grossly intact, normal speech, no gross weakness of arms, no gross weakness of legs. MEDICAL DECISION MAKING: Patient is a 54-year-old female who presents the ER lower abdominal pain. She notes that she has been having bright red blood per rectum. Patient has a history of ischemic colitis. IV was established blood work was obtained. Labs show a mild leukocytosis 11.8 thousand. No significant anemia. BMP along with LFTs bilirubin and lipase was unremarkable. UA was contaminated with multiple epithelial cells. CT abdomen pelvis shows a colitis. She was given IV fluids IV Zofran and pain medications. She was updated bedside. Discussed with the hospitalist as she has a history of ischemic colitis. Do favor observation is warranted at this time. Triage Nursing notes reviewed. Prior medical records reviewed Vital Signs: reviewed and remarkable for no significant abnormalities Differential diagnosis: Differential diagnoses includes but is not limited to gastritis, peptic ulcer disease, GERD, gallbladder disease, pancreatitis, small bowel obstruction, acute coronary syndrome, pericarditis, ischemic bowel, irritable bowel disease, irritable bowel syndrome, appendicitis, diverticulitis, malignancy, hernia, urinary tract infection, torsion, [/ectopic (if female)], perforation, trauma, infectious. ER treatment provided: See below Diagnostics interpreted by me: ECG: none Cardiac Monitoring: An order was placed for continuous cardiac monitoring. The monitor shows a rate of 61 with sinus rhythm. Laboratory studies: As stated above and show below. Imaging studies: CT abdomen pelvis shows colitis. Consultation(s): Discussed with Dr. Ricky Jimenez ED COURSE: Procedures: none Critical Care: None Past Med/Surg History Social History Preferred Language: Turkish Communication Ability: Effective Brazer Induction Required: No Beliefs That Will Affect Care: None Current Living Situation: Spouse Other Information That Helps Us Care for You: No Feels Safe at Home: Yes Safety Concerns: Feels Safe At This Time Smoking Status: Never smoker Cigarettes Per Day: 40 ; Do You Dip or Chew Toba account services manager: No ; Second Hand Exposure: No ; Tobacco Cessation Education Requested by Patient: No Hx Alcohol Use: No Hx Substance Use: No Allergies Allergies Allergy/AdvReac Type Severity Reaction Status Date / Time No Known Allergies Allergy Unverified 02/04/20 20:17 Home Meds Home Medications Medication Instructions Recorded Confirmed atorvastatin 10 mg PO QAM 02/04/20 02/04/20 conjugated estrogens [Premarin] 0.9 mg PO DAILY 02/04/20 02/04/20 Results & Data (ED) Vital Signs Vital Signs - 24 hr 02/04/20 16:43 02/04/20 17:29 02/04/20 17:46 Temperature 37.2 C Temperature Source Oral Pulse Rate 88 72 Pulse Rate from SpO2 Sensor Respiratory Rate 18 18 Respiratory Effort / Characteristics Non-Labored Spontaneous Respiratory Depth Normal Respiratory Pattern Regular Blood Pressure 132/88 Blood Pressure Mean 102 Blood Pressure Position Sitting Pulse Oximetry 97 95 Oxygen Delivery Method Room Air Room Air Sepsis Recent Fever Within 48 Hours No Sepsis New/Unexplained Change in Mental Status No Sepsis Action Taken by Nursing No Action Required 02/04/20 17:50 02/04/20 18:00 02/04/20 18:15 Temperature Temperature Source Pulse Rate 71 62 80 Pulse Rate from SpO2 Sensor 63 Respiratory Rate 13 22 Respiratory Effort / Characteristics Respiratory Depth Respiratory Pattern Blood Pressure 122/70 Blood Pressure Mean 89 Blood Pressure Position Pulse Oximetry 95 Oxygen Delivery Method Sepsis Recent Fever Within 48 Hours Sepsis New/Unexplained Change in Mental Status Sepsis Action Taken by Nursing 02/04/20 18:20 02/04/20 18:54 02/04/20 18:55 Temperature Temperature Source Pulse Rate 73 86 81 Pulse Rate from SpO2 Sensor 80 Respiratory Rate 15 15 14 Respiratory Effort / Characteristics Respiratory Depth Respiratory Pattern Blood Pressure 136/84 Blood Pressure Mean 91 Blood Pressure Position Pulse Oximetry 97 Oxygen Delivery Method Sepsis Recent Fever Within 48 Hours Sepsis New/Unexplained Change in Mental Status Sepsis Action Taken by Nursing 02/04/20 19:00 02/04/20 19:01 02/04/20 19:10 Temperature Temperature Source Pulse Rate 79 75 76 Pulse Rate from SpO2 Sensor 79 75 76 Respiratory Rate 18 14 Respiratory Effort / Characteristics Respiratory Depth Respiratory Pattern Blood Pressure 113/84 Blood Pressure Mean 92 Blood Pressure Position Pulse Oximetry 96 96 96 Oxygen Delivery Method Sepsis Recent Fever Within 48 Hours Sepsis New/Unexplained Change in Mental Status Sepsis Action Taken by Nursing 02/04/20 19:20 02/04/20 19:30 02/04/20 19:40 Temperature Temperature Source Pulse Rate 69 67 60 Pulse Rate from SpO2 Sensor Respiratory Rate 16 13 14 Respiratory Effort / Characteristics Respiratory Depth Respiratory Pattern Blood Pressure Blood Pressure Mean Blood Pressure Position Pulse Oximetry Oxygen Delivery Method Sepsis Recent Fever Within 48 Hours Sepsis New/Unexplained Change in Mental Status Sepsis Action Taken by Nursing 02/04/20 19:52 02/04/20 20:00 02/04/20 20:10 Temperature Temperature Source Pulse Rate 65 62 60 Pulse Rate from SpO2 Sensor Respiratory Rate 22 16 18 Respiratory Effort / Characteristics Respiratory Depth Respiratory Pattern Blood Pressure Blood Pressure Mean Blood Pressure Position Pulse Oximetry Oxygen Delivery Method Sepsis Recent Fever Within 48 Hours Sepsis New/Unexplained Change in Mental Status Sepsis Action Taken by Nursing Laboratory Data Result diagrams: 02/04/20 17:25 02/04/20 17:25 Lab Results 02/04/20 02/04/20 02/04/20 Range/Units 17:25 17:25 18:22 WBC 11.82 H (4.8-10.8) K/uL RBC 5.07 (4.2-5.4) M/uL Hgb 15.2 (12.0-16.0) g/dL Hct 44.8 (37-47) % MCV 88.4 (80-100) fL MCH 30.0 (25-34) pg MCHC 33.9 (32-36) g/dL RDW Std Deviation 41.8 (36.4-46.3) fL RDW Coeff of Orly 13.1 (11.5-14.5) % Plt Count 263 (130-400) K/uL MPV 10.6 H (7.4-10.4) fL Immature Gran % (Auto) 0.3 % Neut % (Auto) 89.1 % Lymph % (Auto) 7.6 % Christian % (Auto) 2.6 % Eos % (Auto) 0.2 % Baso % (Auto) 0.2 % Immature Gran # (Auto) 0.03 H (0.00-0.02) K/uL Neut # (Auto) 10.54 H (1.4-6.5) K/uL Lymph # (Auto) 0.90 L (1.2-3.4) K/uL Christian # (Auto) 0.31 (0.11-0.59) K/uL Eos # (Auto) 0.02 (0-0.5) K/uL Baso # (Auto) 0.02 (0-0.2) K/uL Sodium 139 (136-145) mmol/L Potassium 3.7 (3.5-5.1) mmol/L Chloride 110 H (98-107) mmol/L Carbon Dioxide 24 (21-32) mmol/L Anion Gap 6.0 (3-11) BUN 14 (7-18) mg/dl Creatinine 0.84 (0.6-1.2) mg/dl Est Cr Clr Drug Dosing 66.8 ml/min Est GFR ( Amer) 92.0 Est GFR (Non-Af Amer) 79.3 BUN/Creatinine Ratio 16.2 (10-20) Glucose 142 H (70-99) mg/dl Calcium 9.3 (8.5-10.1) mg/dl Total Bilirubin 0.6 (0.2-1) mg/dl AST 16 (15-37) U/L ALT 27 (12-78) U/L Alkaline Phosphatase 90 (45-117) U/L Total Protein 7.9 (6.4-8.2) gm/dl Albumin 3.7 (3.4-5.0) gm/dl Globulin 4.2 H (2.5-4.0) gm/dl Albumin/Globulin Ratio 0.9 (0.9-2) Lipase 113 (73-393) U/L Urine Color Yellow Urine Appearance Clear (Clear) Urine pH 5.0 (4.5-7.5) Ur Specific Eland 1.032 H (1.000-1.030) Urine Protein Negative (Negative) Urine Glucose (UA) Negative (Negative) Urine Ketones 1+ H (Negative) Urine Blood 1+ H (Negative) Urine Nitrite Negative (Negative) Urine Bilirubin Negative (Negative) Urine Urobilinogen Negative (Negative) Ur Leukocyte Esterase Negative (Negative) Urine WBC (Auto) 1-5 (0-5) /hpf Urine RBC (Auto) 5-10 H (0-4) /hpf U Hyaline Cast (Auto) 1-5 (0-5) /lpf U Epithel Cells (Auto) >30 H (0-5) /lpf Urine Bacteria (Auto) Negative (Negative) Administered Medications Metronidazole (Flagyl) 500 mg in 100 mls @ 100 mls/hr IV Q8H [facility] Stop: 02/14/20 21:59 Last Admin: 02/04/20 22:36 Dose: 100 mls/hr Documented by: [id number] Ceftriaxone Sodium 1,000 mg/ (Dextrose) 50 mls @ 100 mls/hr IV Q24H [facility]; Protocol Stop: 02/14/20 21:59 Last Admin: 02/04/20 22:36 Dose: 100 mls/hr Documented by: [id number] Sodium Chloride (Nss 1000ml) 1,000 mls @ 125 mls/hr IV .Q8H [facility] Stop: 02/05/20 13:59 Last Admin: 02/04/20 22:36 Dose: 125 mls/hr Documented by: [id number] Ioversol (Optiray 320 125ml) 120 ml IV ONCE PRN PRN Reason: Interaction Checking Stop: 02/08/20 18:31 Last Admin: 02/04/20 18:33 Dose: 120 ml Documented by: [id number] Discontinued Medications Sodium Chloride (Nss 1000ml) 2,000 mls @ 999 mls/hr IV .Q2H1M ONE Stop: 02/04/20 19:18 Last Infusion: 02/04/20 19:35 Dose: 0 mls/hr Documented by: [id number] Admin: 02/04/20 17:34 Dose: 999 mls/hr Documented by: [id number] Morphine Sulfate (Morphine Sulfate) 6 mg IV NOW STA Stop: 02/04/20 17:19 Last Admin: 02/04/20 17:34 Dose: 6 mg Documented by: [id number] Morphine Sulfate (Morphine Sulfate) Confirm Administered Dose 2 mg .ROUTE .STK- MED ONE Stop: 02/04/20 17:33 Last Admin: 02/04/20 17:34 Dose: Not Given Documented by: [id number] Morphine Sulfate (Morphine Sulfate) Confirm Administered Dose 4 mg .ROUTE .STK- MED ONE Stop: 02/04/20 17:33 Last Admin: 02/04/20 17:34 Dose: Not Given Documented by: [id number] Ondansetron HCl (Zofran) 4 mg IV NOW STA Stop: 02/04/20 17:19 Last Admin: 02/04/20 17:34 Dose: 4 mg Documented by: [id number] Discharge Plan Visit Data Chief Complaint: Abdominal Pain Stated Complaint: SEVERE ABD PAIN, REF BY DOCTOR ED Provider: Del Jenkins Discharge Problem: Colitis, Vomiting and diarrhea, Abdominal pain Discharge Problem: Abdominal pain Qualifiers: Abdominal location: unspecified location Qualified Code(s): R10.9 - Unspecified abdominal pain
[2020-02-04] MEDS ORDERED: MoRPHine SULFATE 2 MG/ML CARP ONE (17:32)
[2020-02-04] MEDS ORDERED: MoRPHine SULFATE 4 MG/ML 1 ML CARP\\VIAL ONE (17:32)
[2020-02-04 17:36] LABS: Basophils # (auto) 0.02 K/uL (0-0.2); Basophils % (auto) 0.2 %; Eosinophils # (auto) 0.02 K/uL (0-0.5); Eosinophils % (auto) 0.2 %; Hematocrit (blood only) 44.8 % (37-47); Hemoglobin 15.2 g/dL (12.0-16.0); Immature Granulocytes # (auto) 0.03 K/uL (0.00-0.02); Immature Granulocytes % (auto) 0.3 %; Lymphocytes % (auto) 7.6 %; Mean Corpuscular Hgb Conc 33.9 g/dL (32-36); Mean Corpuscular Volume 88.4 fL (80-100); Mean Platelet Volume 10.6 fL (7.4-10.4); Monocytes # (auto) 0.31 K/uL (0.11-0.59); Monocytes % (auto) 2.6 %; Neutrophils # (auto) 10.54 K/uL (1.4-6.5); Neutrophils % (auto) 89.1 %; Platelet Count 263 K/uL (130-400); RDW Coefficient of Variation 13.1 % (11.5-14.5); RDW Standard Deviation 41.8 fL (36.4-46.3); Red Blood Count 5.07 M/uL (4.2-5.4); White Blood Count 11.82 K/uL (4.8-10.8)
[2020-02-04 17:52] LABS: Albumin Level 3.7 gm/dl (3.4-5.0); BUN Creatinine Ratio 16.2 (10-20); Calcium 9.3 mg/dl (8.5-10.1); Creatinine Clr Calc Pharmacy 66.8 ml/min; Est GFR (Non-African American) 79.3; Potassium 3.7 mmol/L (3.5-5.1)
[2020-02-04 17:55] LABS: Albumin Globulin Ratio 0.9 (0.9-2); Bilirubin,Total 0.6 mg/dl (0.2-1); Globulin 4.2 gm/dl (2.5-4.0); Total Protein 7.9 gm/dl (6.4-8.2)
[2020-02-04] MEDS ORDERED: OPTIRAY 320 125ml IV PRN (18:32)
[2020-02-04 18:36] LABS: Appearance Urine Clear (Clear); Bacteria Urine Automated Negative (Negative); Bilirubin Urine Negative (Negative); Blood Urine 1+ (Negative); Color Urine Yellow; Epithelial Cell Urine Auto >30 /lpf (0-5); Glucose Urine UA Negative (Negative); Ketones Urine 1+ (Negative); Leukocyte Esterase Urine Negative (Negative); Nitrite Urine Negative (Negative); Protein Urine Negative (Negative); Specific Gravity Urine 1.032 (1.000-1.030); Urobilinogen Urine Negative (Negative)
--- NOTE | 2020-02-04 19:00 | CT Scan Report ---
CT angio abdomen pelvis w con CLINICAL HISTORY: 54 years-old Female with History of ischemic colitis with severe abdominal pain a nd bright red blood per rectum acute severe abdominal pain with rectal bleeding COMPARISON STUDY: CT abdomen pelvis 02/27/2017, chest CT 11/03/2017 TECHNIQUE: Following the IV administration of 120 cc of Optiray 320, CT angiogram of the abdomen and pelvis was performed from the lung bases the proximal femora. Images are reviewed in the axial, sagit israel, and coronal planes. 3-D MIPS images are created and assessed. All measurements were obtained acc ording to NASCET criteria. IV contrast was administered without complication. A dose lowering techni que was utilized adhering to the principles of ALARA. CT DOSE: 358.84 mGy.cm FINDINGS: CTA: Heart is normal in size without pericardial effusion. Mild to moderate mixed plaque of the abdominal aorta and branch vessels. No abdominal aortic aneurysm or dissection. There is patency of the celiac trunk, superior and inferior mesenteric arteries. Iliac arteries also appear patent. Bilateral renal arteries are widely patent. There is an accessory renal artery of the inferior pole right kidney. CT ABDOMEN/pelvis: Subpleural solid pulmonary nodules of the lung bases measuring up to 6 mm redemonstrated. No pneumato sis or pneumoperitoneum. The spleen, pancreas, adrenal glands and gallbladder are unremarkable. The l iver is also within normal limits. Symmetric enhancement of the kidneys. No obstructive uropathy. Ure ters and urinary bladder are unremarkable. Hysterectomy. No adnexal mass lesions identified. No adeno amira. No bowel obstruction. Moderate colonic diverticulosis without acute diverticulitis. There is mild wal l thickening of the distal transverse colon, splenic flexure and proximal descending colon with subtl e pericolonic stranding. Partial distention of the mid transverse colon. Normal appendix. Soft tissue s are unremarkable. Bones appear intact. Remote bilateral L5 pars defects with 12 mm anterolisthesis L5 on S1. IMPRESSION: 1. Mild wall thickening of the distal transverse colon, splenic flexure and proximal descending colon is compatible with a mild nonspecific colitis. 2. There is mild mixed atheromatous and atherosclerotic plaque of the abdominal aorta. No aneurysm, d issection or arterial occlusion identified. 3. Colonic diverticulosis without acute diverticulitis. 4. Normal appendix. 5. Additional findings as above. ACT 112: Negative or not required by law. The above report was generated using voice recognition software. It may contain grammatical, syntax o r spelling errors. Electronically signed by: Wayne Mckeon M.D. 02/04/2020 6:59 PM
--- NOTE | 2020-02-04 20:29 | History & Physical Report ---
Date of Service February 04, 2020 Assessment & Plan (1) Colitis: Mrs. Chao is a 54 yo F with a PMHx of ischemic colitis, HLD and significant tobacco use, currently on hormonal therapy, who presented to the ED with abdominal pain and BRBPR, found to have signs of colitis on CT angiogram of abdomen and pelvis. - etiology of colitis is unknown: differential includes ischemic >> infectious vs. autoimmune - patient with history of ischemic colitis in 2017 (it is unknown whether this episode was thrombotic vs. embolic) - risk factors for ischemic origin include HLD, atheromatous changes of abdominal aorta visualized on CTA, significant pack year history of tobacco use, current hormonal therapy, family history of blood clots - infectious etiology unlikely as WBC only mildly elevated, patient is afebrile, without diarrhea - autoimmune etiology unlikely as patient had a normal colonoscopy within past 3 years - continue IVF - keep patient NPO - pain control with IV Tylenol and morphine - will initiate broad spectrum Abx with ceftriaxone and Flagyl - consider initiation of aspirin therapy (2) History of hysterectomy: - with bilateral oophorectomy - patient using Premarin for estrogen replacement - given family history of blood clots and miscarriages, suspect genetic hypercoagulability disorder - consider discontinuation of premarin in order to reduce clot risk (3) Former heavy tobacco smoker: - patient with 60 pack year history - quit smoking 13 years ago - known lung nodules identified on imaging - patient has these followed with serial CT scans, reports they have been unchanged (4) Hyperlipidemia: - continue lipitor 10mg, daily - patient reports lipid panel was drawn in November by PCP, unsure of cholesterol numbers (5) Abdominal pain: - likely secondary to colitis as above - CTA of abdomen and pelvis showing normal gallbladder and appendix - IV Tylenol and morphine prn for pain (6) BRBPR (bright red blood per rectum): - likely secondary to ischemic colitis as above - colonic mucosa is friable in the setting of diminished blood flow - CBC stable (7) Lung nodules: - subpleural solid pulmonary nodules of the lung bases measuring up to 6 mm visualized on CTA of abdomen and pelvis - patient reports these nodules are known to her and have been followed with serial Chest CT scans (8) Diverticulosis of colon: - visualized on CTA of abdomen and pelvis - no evidence of diverticulitis - no acute management Dispo: floor Diet: NPO DVT ppx: lovenox Code: full History of Present Illness Primary Care Provider: Norma Lujan Mrs. Chao is a 54 yo F with a PMHx of ischemic colitis, hyperlipidemia and former tobacco abuse who presented to the ED for evaluation upper abdominal pain. The pain was exacerbated by movement and improved somewhat with Advil. She denies associated nausea/vomiting, but she does endorse two episodes of bright red blood per rectum. The amount of blood with each BM was "minimal." She has not eaten anything today, citing lack of appetite. She was diagnosed with ischemic colitis in 2017 via abdominal imaging. She had a colonoscopy about 8 weeks after this episode, which she reports was totally normal. She likens her present illness to what she experienced back in 2017 when diagnosed with ischemic colitis. As for her risk factors for ischemic colitis, she has a significant tobacco pack year history of 60, although she quit smoking 13 years ago. She has hyperlipidemia for which she manages with Lipitor 10mg, daily. Not on aspirin therapy. She is not diabetic. She is not on a direutic. No known history of atrial fibrillation. Mrs. Chao reports a family history of blood clots in her mother and younger sister, and says her older sister had two miscarriages. However, she denies a personal history of prior blood clots. She does not believe that anyone in the family has had a hypercoagulability work-up. Of note, she does use premarin on a daily basis. She had a hysterectomy and bilateral oophorectomy at the age of 33 for significant endometriosis, and she was placed on premarin after the surgery and has been using ever since. ED course: CBC showed mild elevation in WBC count to 11.8. Lipase WNL. Electrolytes WNL. Kidney function normal. Liver enzymes normal. UA 1+ blood. CTA of abdomen and pelvis showing mild wall thickening of the traverse colon, splenic flexure and proximal descending colon suggestive of a mild, non-specific colitis. Appendix was normal. Gallbladder unremarkable. There is mild mixed atheromatous and atherosclerotic plaque of the abdominal aorta. No aneurysm, dissection or arterial occlusion identified. Diverticulosis, no signs of acute diverticulitis in colon. 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 Beliefs That Will Affect Care: None Current Living Situation: Spouse Other Information That Helps Us Care for You: No Feels Safe at Home: Yes Safety Concerns: Feels Safe At This Time Smoking Status: Former smoker (QUIT APPROXIMATELY 2006, AGES [age]) Cigarettes Per Day: 40 ; Do You Dip or Chew Tobacco: No ; Second Hand Exposure: No ; Tobacco Cessation Education Requested by Patient: No Hx Alcohol Use: No Hx Substance Use: No Review of Systems Constitutional: + diminished appetite Gastrointestinal: + abdominal pain and + blood in stools (+ bright red blood per rectum ); no nausea and no vomiting Physical Exam Constitutional: WD/WN, vitals as above no acute distress Eyes: + anicteric sclerae ENMT: external ear and nose normal, oropharynx normal Neck: normal visual inspection and trachea midline Respiratory: normal respiratory effort, lungs clear to auscultation Cardiovascular: RRR, no murmur, no edema Vessels: no JVD and no carotid bruit Extremities: no pedal edema Gastrointestinal (Abdomen): Inspection/Auscultation: abdomen normal to inspection and normal bowel sounds; abdomen not distended Percussion/Palpation: abdomen soft; abdomen nontender, no guarding and no hepatosplenomegaly Skin: no rashes, warm and dry Psychiatric: A+Ox3, euthymic affect Results & Data Results & Data ([facility]) Vital Signs (Past 12 Hours) Vital Signs Temp Pulse Resp BP Pulse Ox 02/04/20 20:10 60 18 02/04/20 20:00 62 16 02/04/20 19:52 65 22 02/04/20 19:40 60 14 02/04/20 19:30 67 13 02/04/20 19:20 69 16 02/04/20 19:10 76 14 96 02/04/20 19:01 75 18 96 02/04/20 19:00 79 113/84 96 02/04/20 18:55 81 14 136/84 97 02/04/20 18:54 86 15 02/04/20 18:20 73 15 02/04/20 18:15 80 22 02/04/20 18:00 62 122/70 95 02/04/20 17:50 71 13 02/04/20 17:46 72 18 02/04/20 17:29 95 02/04/20 16:43 37.2 C 88 18 132/88 97 Supervising Physician Co-Signing Physician Notes Attending addendum: I have physically seen this patient, have supervised the medical residents activities, and agree with the H&P unless as otherwise noted. Assessment and Plan: Colitis involving distal transverse colon, splenic flexure and proximal descending colon/bright red blood per rectum-- History of ischemic colitis. CT angiography of abdomen pelvis without anomaly regarding circulation. Check stool for culture and C. difficile. Place on ceftriaxone IV and Flagyl IV. NPO IV fluids Famotidine 20 mg IV every 12 hours Acetaminophen 1 g IV every 8 hours as needed mild pain or temperature. Morphine IV as needed severe pain. Multiple risk factors for ischemia: Hyperlipidemia, tobacco use disorder, horm one replacement therapy, family history, and visualized abdominal aortic plaquing. Consult gastroenterology Dr. Jones. Remainder of orders and notations as noted. Resident Activity Tracking Resident Involvement: Resident Care Provided Care Provided: Adult [facility]
[2020-02-04] MEDS ORDERED: ZOLPIDEM TARTRATE 5 MG TAB PO PRN (21:23)
[2020-02-04] MEDS: cefTRIAXone SODIUM 1,000 MG in DEXTROSE 5% 50 ML IV SCH (22:36)
[2020-02-04] MEDS: metroNIDAZOLE 500 MG/100 ML BAG IV SCH (22:36)
[2020-02-04] MEDS: SODIUM CHLORIDE 0.9% 1000ML 1,000 ML IV SCH (22:36)
[2020-02-04] MEDS: MoRPHine SULFATE 2 MG/ML CARP IV PRN (23:23)
[2020-02-05 04:50] LABS: Pregnancy Test, Urine Negative (Negative)
[2020-02-05] MEDS: MoRPHine SULFATE 2 MG/ML CARP IV PRN (05:29)
[2020-02-05] MEDS: metroNIDAZOLE 500 MG/100 ML BAG IV SCH ×3 (05:31→22:07)
[2020-02-05 08:28] LABS: Hematocrit (blood only) 39.3 % (37-47); Hemoglobin 13.6 g/dL (12.0-16.0); Mean Corpuscular Hemoglobin 30.4 pg (25-34); Mean Corpuscular Hgb Conc 34.6 g/dL (32-36); Mean Corpuscular Volume 87.9 fL (80-100); Mean Platelet Volume 10.1 fL (7.4-10.4); Platelet Count 201 K/uL (130-400); RDW Coefficient of Variation 13.1 % (11.5-14.5); Red Blood Count 4.47 M/uL (4.2-5.4); White Blood Count 7.27 K/uL (4.8-10.8)
[2020-02-05] MEDS: SODIUM CHLORIDE 0.9% 1000ML 1,000 ML IV SCH (08:32)
[2020-02-05] MEDS ORDERED: ENOXAPARIN INJ 30 MG/0.3 ML SYR SQ SCH (09:00)
[2020-02-05] MEDS ORDERED: ESTROGENS, CONJUGATED 0.625 MG TAB PO SCH (09:00)
[2020-02-05] MEDS: ONDANSETRON INJ 2 MG/ML 2 ML VIAL IV PRN ×2 (11:04→22:10)
[2020-02-05] MEDS: ACETAMINOPHEN 1,000 MG/100 ML VIAL IV PRN ×2 (11:08→21:19)
--- NOTE | 2020-02-05 15:07 | Hospitalist Progress Note ---
Date of Service February 05, 2020 Assessment & Plan (1) BRBPR (bright red blood per rectum): CT a/p showed mild wall thickening of the distal transverse colon, splenic flexure and proximal descending colon is compatible with a mild nonspecific colitis. - History of ischemic colitis in 2017. Had a colonoscopy around that time as well without any noted abnormalities. - Never had any hyper-coaguable work-up in the past. - Conservative treatment for now. - GI consult -> Patient believes she saw Dr. Jones for her prior colonoscopy. - Will get C. diff and other stool testing if she has further BMs. - Continue Cipro/Flaygl for now - Pain control (2) Colitis: As on CT a/p on admission. - Treat as above (3) Hyperlipidemia: - Continue statin when able (4) DVT prophylaxis: SCDs - Holding heparin for bleeding Admission and Anticipated Discharge Date Admission Date: February 04, 2020 Subjective Less abdominal pain today. No further BMs. No blood per rectum. Reports no fevers/chills, chest pain, shortness of breath, nausea, or vomiting. Physical Exam Constitutional: WD/WN, vitals as above Eyes: EOM intact bilaterally; no conjunctival abnormality ENMT: external ear and nose normal, oropharynx normal Neck: trachea midline, no thyromegaly normal visual inspection Respiratory: normal respiratory effort, lungs clear to auscultation no respiratory distress Cardiovascular: RRR, no murmur, no edema Gastrointestinal (Abdomen): Inspection/Auscultation: abdomen normal to inspection and + hypoactive bowel sounds; abdomen not distended Per cussion/Palpation: abdomen soft; abdomen nontender, no guarding and abdomen not rigid Musculoskeletal: no cyanosis or clubbing, extremities motor strength 5/5 Skin: no rashes, warm and dry Neurologic: moves all extremities and awake Psychiatric: Orientation: alert, oriented to person and cooperative Results & Data Results & Data ([facility]) Vital Signs (Past 12 Hours) Vital Signs Temp Pulse Resp BP Pulse Ox 02/05/20 07:31 36.9 C 63 18 144/78 H 95 PG Care Time/CCT Total # of Minutes Spent Total Time Spent with Patient: Total time spent is greater than 50% in coordination of care (as documented) at patient's floor/unit and/or counseling patient: Coding Level of Care Code 60000 Subseq Hosp Care Lvl 3 Diagnoses BRBPR (bright red blood per rectum) K62.5 Colitis K52.9 Hyperlipidemia E78.5 DVT prophylaxis Z29.9
--- NOTE | 2020-02-05 16:35 | Consultation Report ---
DATE OF CONSULTATION: 02/05/2020 GASTROINTESTINAL CONSULTATION NOTE REASON FOR EVALUATION: Rectal bleeding and abdominal pain. HISTORY OF PRESENT ILLNESS: The patient is a 54-year-old who was awakened at 4:00 from sleep this morning with pain in the upper abdomen. It was partially relieved with Advil and she went to work, but the pain got worse. She took more Advil and then had some rectal bleeding. She spoke to her primary care physician who referred her to the Emergency Room. There, she had a CAT scan of the abdomen along with a CT angiogram that showed some thickening of the bowel around the splenic flexure area, which is a watershed area between the SMA and STEWART arteries. There were also some atherosclerotic plaques suggesting an ischemic bowel. Stool studies for enteric pathogens, C. diff and fecal leukocytes have been ordered, and she has been started on ceftriaxone and Flagyl IV and bowel rest with IV fluid replacement. The patient denies any fever, nausea or vomiting. Risk factors for ischemia include hyperlipidemia, smoking, atherosclerosis on her CAT scan and hormone therapy. She also has a family history of blood clots in her mother and sister. PAST MEDICAL HISTORY: Remarkable for hysterectomy for endometriosis. She has also had a . She has hyperlipidemia, history of ischemic bowel 3 years ago, history of benign lung nodules and diverticulosis. MEDICATIONS AT HOME: Atorvastatin and Premarin. ALLERGIES: None. FAMILY HISTORY: Positive for blood clots in her mother and sister. SOCIAL HISTORY: The patient is a former smoker. 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 REVIEW OF SYSTEMS: Positive for abdominal pain, decreased appetite. PHYSICAL EXAMINATION: GENERAL: The patient is overweight, in no acute distress. VITAL SIGNS: Normal. She is afebrile. ABDOMEN: Shows a low midline scar, which is well healed. There are no masses, tenderness, or hepatosplenomegaly. SKIN: Not pale. IMPRESSION AND PLAN: The patient has clinical features consistent with ischemic colitis and the area of the bowel that is inflamed on CAT scan is a common area where there is terminal blood vessels end including the superior mesenteric artery and inferior mesenteric artery. I plan on checking a lactic acid level, which is commonly elevated in ischemic bowel. I would recommend that hematology be consulted for a coagulation evaluation, especially given her numerous risk factors. I would continue her bowel rest and IV antibiotics. She is currently tolerating clear liquids and if she still continues to do well, she may be advanced to full liquids tomorrow. Endoscopy is relatively contraindicated in the setting of ischemic bowel. We will await stool studies and I expect that that will be negative. I will continue to follow the patient.
[2020-02-05] MEDS: cefTRIAXone SODIUM 1,000 MG in DEXTROSE 5% 50 ML IV SCH (21:37)
--- NOTE | 2020-02-06 05:17 | Billing Data ---
Date of Service February 06, 2020 Coding Level of Care Code 57401 Initial Inpt Care Lvl 3
[2020-02-06] MEDS: metroNIDAZOLE 500 MG/100 ML BAG IV SCH ×3 (05:20→21:47)
[2020-02-06 06:15] LABS: Hematocrit (blood only) 38.8 % (37-47); Hemoglobin 13.4 g/dL (12.0-16.0); Mean Corpuscular Hemoglobin 30.2 pg (25-34); Mean Corpuscular Hgb Conc 34.5 g/dL (32-36); Mean Corpuscular Volume 87.6 fL (80-100); Mean Platelet Volume 10.6 fL (7.4-10.4); Platelet Count 217 K/uL (130-400); RDW Coefficient of Variation 12.9 % (11.5-14.5); RDW Standard Deviation 41.5 fL (36.4-46.3); Red Blood Count 4.43 M/uL (4.2-5.4); White Blood Count 6.65 K/uL (4.8-10.8)
[2020-02-06 06:47] LABS: BUN Creatinine Ratio 10.1 (10-20); Calcium 8.3 mg/dl (8.5-10.1); Creatinine Clr Calc Pharmacy 81.9 ml/min; Est GFR (African American) 115.7; Est GFR (Non-African American) 99.9; Magnesium 1.8 mg/dl (1.8-2.4); Phosphorus 3.1 mg/dl (2.5-4.9); Potassium 3.3 mmol/L (3.5-5.1)
[2020-02-06] MEDS: ESTROGENS, CONJUGATED 0.3 MG TAB PO SCH (09:23)
--- NOTE | 2020-02-06 09:28 | Consultation Report ---
DATE OF CONSULTATION: 02/06/2020 REASON FOR CONSULTATION: Suspected hypercoagulable state. HISTORY OF PRESENT ILLNESS: Marilee is a very pleasant 54-year-old female patient who was admitted to [facility] with subacute onset abdominal pain and bloody diarrhea. The patient states that abdominal pain had occurred a couple of days prior to admission. She was treating herself with [id number] Advil which provided some relief. She had 2 separate episodes of bright red rectal bleeding per rectum. She also admits to anorexia over the past couple of days leading up to admission. She apparently was diagnosed with ischemic colitis in 2017 the abdominal imaging. She underwent colonoscopy 8 weeks thereafter and reported a normal examination. She believes these episodes have been similar; however, she did not develop bleeding in 2017. The patient was seen by Dr. Sean Jones from Gastroenterology and a CTA of the abdomen and pelvis revealed patent abdominal vasculature; however, there is a watershed area described as mid wall thickening of the distal transverse colon, splenic flexure and proximal descending colon compatible with mild nonspecific colitis. Thus, Dr. Jones is questioning whether she should be worked up for possible hypercoagulable state. I inquired about her past thrombotic history and she denies any previous DVT, superficial thrombophlebitis or pulmonary embolism. She reports a clotting issues with both her mother and her sister, but neither have been formally worked up for thrombophilia. She describes her mother's thrombotic event to be associated with . The patient is improving clinically. I suspect a followup scope will take place in the coming weeks, but Dr. Jones is reluctant to perform such a procedure at this time with the suspicion of ischemic colitis. PAST MEDICAL HISTORY: Positive for hypercholesterolemia, again previous ischemic colitis. PAST SURGICAL HISTORY: Positive for section. MEDICATIONS: Prior to admission included Premarin 0.9 mg p.o. daily and atorvastatin 10 mg p.o. daily. ALLERGIES: No known drug allergies. SOCIAL HISTORY: She is employed at [employer], , she is a reformed smoker. Negative for alcohol or illicit drugs. FAMILY HISTORY: As per HPI with clotting issues involving her sister and her mother. No formal thrombophilia ever established with any first degree relative. REVIEW OF SYSTEMS: CONSTITUTIONAL: Positive for abdominal pain and bright red rectal bleeding x2. Positive for anorexia. No fevers, chills or sweats. SKIN: No rashes or lesions. No history of dermatoses. HEENT: Negative for headaches, lightheadedness or dizziness. No acute visual or hearing deficits. No sinus symptoms, sore throat or dysphagia. LYMPH: No history of lymphoproliferative disease. CARDIAC: No history of coronary artery disease, no angina or palpitations. PULMONARY: Negative for COPD, shortness of breath, dyspnea or orthopnea. No cough or hemoptysis. GASTROINTESTINAL: As per HPI. GENITOURINARY: No hematuria, dysuria, urinary incontinence. PSYCHIATRIC: Negative for anxiety, depression or psychoses. MUSCULOSKELETAL: Negative for focal muscle weakness. No arthralgias. ENDOCRINE: Negative for diabetes or thyroid disease. NEUROLOGIC: Negative for seizure, stroke, or migraine headache. HEMATOLOGIC: Negative for anemia, thrombophilia or bleeding diathesis by history. PHYSICAL EXAMINATION: GENERAL: Very pleasant 54-year-old female, awake, alert and appropriate, in no acute distress. VITAL SIGNS: Temperature 37, pulse 66, respiratory rate 16, blood pressure 133/79. SKIN: Warm, dry, noncyanotic without petechia, rash or ecchymosis. HEENT: Head is atraumatic, normocephalic. Eyes: PERRLA, EOMI. Nares are patent without rhinorrhea or discharge. Throat clear. Tongue midline. No buccal lesions or ulcerations. NECK: Supple without JVD or thyromegaly. HEART: Regular rate and rhythm. No clicks, rubs, murmurs or gallops. LUNGS: Clear to auscultation bilaterally. ABDOMEN: Soft, nontender, nondistended. Bowel sounds are hypoactive. No rigidity or guarding. No palpable hepatosplenomegaly. EXTREMITIES: Pulses and strength are equal in all 4 quadrants. No clubbing, cyanosis or edema. NEUROLOGICALLY: She is awake, alert and oriented x3. Cranial nerves II-XII are intact. No gross motor or sensory deficits are noted. LABORATORY DATA: WBC count 6650, hemoglobin 13.4, platelet count 217,000. Sodium 141, potassium 3.3, chloride 110, carbon dioxide 24, creatinine 0.68, BUN 7. Lactate 1.5. RADIOGRAPHIC DATA: Basically no concrete evidence of ischemic colitis. There is some wall thickening and scattered portions of the large bowel. Interpreting radiologist feels this is consistent with a nonspecific colitis. IMPRESSION: 1. Abdominal pain. 2. Nonspecific colitis. 3. Rule out hypercoagulable state. PLAN: Marilee is a very pleasant 54-year-old female patient who was admitted to [facility] with subacute onset abdominal pain and bloody diarrhea. Appropriately, she was evaluated by Dr. Sean Jones from gastroenterology and CTA of the abdomen and pelvis was performed. I reviewed the films with Dr. Ashford from Radiology and basically thought ischemic colitis could not be exclusively ruled out, but the vessels appeared to be patent. It is not clear whether this could have been an embolic event. The patient has no prior history of thrombophilia and while there is a compelling family history neither of the first-degree relatives were formally diagnosed and both have had just a single episodes of thromboses. I am not sure if a hypercoagulable workup is appropriate in this case. I certainly would not object to having the patient see me again in followup to reassess. I agree with the hospitalist, her use of estrogen probably should be discontinued. We will hold off on obtaining hypercoagulable panel for now, but again I may reconsider after seeing her in followup. Thank you very much for allowing me to participate in her care. If you have any questions or concerns, feel free to contact me at any time. DAVID
--- NOTE | 2020-02-06 15:33 | Discharge Summary ---
Date of Service February 06, 2020 Admission HPI Per Admitting Provider Mrs. Chao is a 54 yo F with a PMHx of ischemic colitis, hyperlipidemia and former tobacco abuse who presented to the ED for evaluation upper abdominal pain. The pain was exacerbated by movement and improved somewhat with Advil. She denies associated nausea/vomiting, but she does endorse two episodes of bright red blood per rectum. The amount of blood with each BM was "minimal." She has not eaten anything today, citing lack of appetite. She was diagnosed with ischemic colitis in 2017 via abdominal imaging. She had a colonoscopy about 8 weeks after this episode, which she reports was totally normal. She likens her present illness to what she experienced back in 2017 when diagnosed with ischemic colitis. As for her risk factors for ischemic colitis, she has a significant tobacco pack year history of 60, although she quit smoking 13 years ago. She has hyperlipidemia for which she manages with Lipitor 10mg, daily. Not on aspirin therapy. She is not diabetic. She is not on a direutic. No known history of at rial fibrillation. Mrs. Chao reports a family history of blood clots in her mother and younger sister, and says her older sister had two miscarriages. However, she denies a personal history of prior blood clots. She does not believe that anyone in the family has had a hypercoagulability work-up. Of note, she does use premarin on a daily basis. She had a hysterectomy and bilateral oophorectomy at the age of 33 for significant endometriosis, and she was placed on premarin after the surgery and has been using ever since. ED course: CBC showed mild elevation in WBC count to 11.8. Lipase WNL. El ectrolytes WNL. Kidney function normal. Liver enzymes normal. UA 1+ blood. CTA of abdomen and pelvis showing mild wall thickening of the traverse colon, splenic flexure and proximal descending colon suggestive of a mild, non-specific colitis. Appendix was normal. Gallbladder unremarkable. There is mild mixed atheromatous and atherosclerotic plaque of the abdominal aorta. No aneurysm, dissection or arterial occlusion identified. Diverticulosis, no signs of acute diverticulitis in colon. Principal Diagnosis Likely ischemic colitis Discharge Exam Constitutional WD/WN, vitals as above Eyes EOM intact bilaterally; no conjunctival abnormality ENMT external ear and nose normal, oropharynx normal Neck trachea midline, no thyromegaly normal visual inspection Respiratory normal respiratory effort, lungs clear to auscultation no respiratory distress Cardiovascular RRR, no murmur, no edema Gastrointestinal (Abdomen) Inspection/Auscultation: abdomen normal to inspection and + hypoactive bowel sounds; abdomen not distended Percussion/Palpation: abdomen soft; abdomen nontender, no guarding and abdomen not rigid Musculoskeletal no cyanosis or clubbing, extremities motor strength 5/5 Skin no rashes, warm and dry Neurologic moves all extremities and awake Psychiatric Orientation: alert, oriented to person and cooperative Discharge Data Allergies Allergy/AdvReac Type Severity Reaction Status Date / Time No Known Allergies Allergy Unverified 02/04/20 20:17 Consultations 02/04/20 19:21 ED Decision to Admit Stat 02/05/20 15:08 Consult Gastroenterology Routine 02/05/20 16:16 Consult Hematology Routine Ordered Studies 02/04/20 18:10 CT angio abdomen pelvis w con Stat Hospital Course (1) BRBPR (bright red blood per rectum): CT a/p showed mild wall thickening of the distal transverse colon, splenic flexure and proximal descending colon is compatible with a mild nonspecific colitis. - History of ischemic colitis in 2017. Had a colonoscopy around that time as well without any noted abnormalities. - Never had any hyper-coaguable work-up in the past. - Seen by GI and oncology who feel that she likely had another episode of ischemic colitis. Improved quickly and wanted to go home by 02/05. No pain in the last 24 hours and had a non-bloody BM as well. No hypercoagulable work-up per oncology, but will see Dr. Mathew in another 3-4 weeks to re-assess. 1) Increased atorvastatin to high-dose to try to prevent further thrombotic events. 2) Will discuss with her human resources project manager regarding stopping hormonal supplementation as this could be raising her thrombotic risk as well. (2) Colitis: As on CT a/p on admission. - Treat as above (3) Hyperlipidemia: - Continue statin at higher dose. (4) DVT prophylaxis: SCDs - Holding heparin for bleeding Total Time Total Time Spent Total Time Spent (In Minutes): 35 Discharge Plan Discharge Items Patient Disposition: Home - Self-Care Reason For Visit: COLITIS Discharge Diagnosis: Ischemic colitis Activity: Resume your previous activity Non-emergency contact: Primary Care Provider and Alcohol And Drug Counselor Call non-emergency contact if: your symptoms worsen and your temperature is above 101 Follow-up/Referrals: Saúl Mathew V., DO [Physician] - (Please see Dr. Mathew in 3-4 weeks if your PCP and you discuss it and feel like you need further work-up.) Sean Jones [Physician] - Norma Lujan [Primary Care Provider] - (Please, follow up with Dr. Lujan. *A nurse from this office will contact you with the appointment information. If you have any questions, call the office at [phone].) Diet: Regular Addtl Attending Provider Instructions: You were admitted to the hospital with stomach pain. Our CT scan of your abdomen showed inflammation of the area in your large intestine (colon) that has two different blood sources and can sometimes suffer from lower blood flow. You have a variety of risk factors for this occurring, including the history of smoking (but great job on quitting!), the estrogen supplement, and your strong family history of blood clots. I would encourage you to talk with your human resources project manager about your hormone supplement. It might be time to reduce the dose or even stop all-together. Additionally, I have sent a higher strength of your cholesterol medication to the pharmacy. This may also help prevent further issues. Please see Dr. Mathew in 3-4 weeks to discuss any further testing he may feel is needed. Please see your PCP in the next 1-2 weeks as well to be sure you're doing well and no stomach pain has returned. Pending Studies at Discharge: No Stand-Alone Forms: [facility] [employer] [facility], Smoking Cessation Medications and DC Order Prescriptions: New atorvastatin 40 mg tablet 40 mg PO DAILY Qty: 30 RF: 0 Continued Premarin 0.9 mg tablet 0.9 mg PO DAILY RF: 0 Discontinued atorvastatin 10 mg tablet 10 mg PO QAM RF: 0 Discharge Orders: Discharge Order (Routine); Ordered 02/06/20 Ordered By: Blas Tejada Admission Data Admit Date/Time: 02/04/20 20:17 Attending Provider: Blas Tejada Admit Provider: Marcela Mackenzie Primary Care Provider: Norma Lujan Other Providers: Blas Tejada ; Sean Jones ; Saúl Mathew V. Coding Level of Care Code 34110 OBS Care - Discharge Diagnoses BRBPR (bright red blood per rectum) K62.5 Colitis K52.9 Hyperlipidemia E78.5 DVT prophylaxis Z29.9
--- NOTE | 2020-02-06 15:47 | Progress Notes ---
DATE: 02/06/2020 SUBJECTIVE: The patient reports that her abdominal pain has resolved and she has tolerated full liquids for lunch earlier today. She remains afebrile and her white blood cell count has returned to normal. Her lactic acid level was also normal. She had a stool for fecal leukocytes, which showed no fecal leukocytes. Enteric pathogens are pending, but with no fecal leukocytes, infection or inflammatory bowel disease are unlikely, pointing more towards an ischemic bowel. She was also seen by Dr. Mathew from hematology who was deciding whether or not to pursue a hypercoagulable state as an outpatient, but he did recommend that she discontinue the use of Premarin, which could be a contributing factor. PHYSICAL EXAMINATION: VITAL SIGNS: Normal. She is afebrile. ABDOMEN: Shows a low midline scar well healed. There are no masses, tenderness, or hepatosplenomegaly. IMPRESSION: The patient most likely suffered an ischemic event to the colon and is recovering quickly. I would recommend that the patient follow a low-fiber diet for the next 1-2 weeks and follow up with a colonoscopy in 6-8 weeks as an outpatient.
[2020-02-06] MEDS: cefTRIAXone SODIUM 1,000 MG in DEXTROSE 5% 50 ML IV SCH (21:20)
[2020-02-06] MEDS: ONDANSETRON INJ 2 MG/ML 2 ML VIAL IV PRN (22:43)
[2020-02-07] MEDS: metroNIDAZOLE 500 MG/100 ML BAG IV SCH (06:25)
--- NOTE | 2020-02-07 07:30 | Hospitalist Progress Note ---
Date of Service February 06, 2020 Assessment & Plan (1) BRBPR (bright red blood per rectum): CT a/p showed mild wall thickening of the distal transverse colon, splenic flexure and proximal descending colon is compatible with a mild nonspecific colitis. - History of ischemic colitis in 2017. Had a colonoscopy around that time as well without any noted abnormalities. - Never had any hyper-coaguable work-up in the past. - Seen by GI and oncology who feel that she likely had another episode of i schemic colitis. Improved quickly and wanted to go home by 02/05. No pain in the last 24 hours and had a non-bloody BM as well. No hypercoagulable work-up per oncology, but will see Dr. Mathew in another 3-4 weeks to re-assess. 1) Increased atorvastatin to high-dose to try to prevent further thrombotic events. 2) Will discuss with her drafter patent regarding stopping hormonal supplementation as this could be raising her thrombotic risk as well. (2) Colitis: As on CT a/p on admission. - Treat as above (3) Hyperlipidemia: - Continue statin at higher dose. (4) DVT prophylaxis: SCDs - Holding heparin for bleeding Admission and Anticipated Discharge Date Admission Date: February 04, 2020 Subjective Low appetite, but no further abdominal pain or pain meds needed. Reports no fevers/chills, chest pain, shortness of breath, abdominal pain, nausea, or vomiting. Physical Exam Constitutional: WD/WN, vitals as above Eyes: EOM intact bilaterally; no conjunctival abnormality ENMT: external ear and nose normal, oropharynx normal Neck: trachea midline, no thyromegaly normal visual inspection Respiratory: normal respiratory effort, lungs clear to auscultation no respiratory distress Cardiovascular: RRR, no murmur, no edema Gastrointestinal (Abdomen): Inspection/Auscultation: abdomen normal to inspection and normal bowel sounds; abdomen not distended Percussion/Palpation: abdomen soft; abdomen nontender, no guarding and abdomen not rigid Musculoskeletal: no cyanosis or clubbing, extremities motor strength 5/5 Skin: no rashes, warm and dry Neurologic: moves all extremities and awake Psychiatric: Orientation: alert, oriented to person and cooperative Results & Data Results & Data ([facility]) Vital Signs (Past 12 Hours) Vital Signs Temp Pulse Resp BP Pulse Ox 02/06/20 23:06 36.8 C 66 14 139/76 95 PG Care Time/CCT Total # of Minutes Spent Total Time Spent with Patient: Total time spent is greater than 50% in coordination of care (as documented) at patient's floor/unit and/or counseling patient: Coding Level of Care Code 52176 Subseq Hosp Care Lvl 2 Diagnoses BRBPR (bright red blood per rectum) K62.5 Colitis K52.9 Hyperlipidemia E78.5 DVT prophylaxis Z29.9
[2020-02-07] MEDS: ESTROGENS, CONJUGATED 0.3 MG TAB PO SCH (08:33)
--- NOTE | 2020-02-07 16:23 | Discharge Summary ---
Date of Service February 07, 2020 Admission HPI Per Admitting Provider Mrs. Chao is a 54 yo F with a PMHx of ischemic colitis, hyperlipidemia and former tobacco abuse who presented to the ED for evaluation upper abdominal pain. The pain was exacerbated by movement and improved somewhat with Advil. She denies associated nausea/vomiting, but she does endorse two episodes of bright red blood per rectum. The amount of blood with each BM was "minimal." She has not eaten anything today, citing lack of appetite. She was diagnosed with ischemic colitis in 2017 via abdominal imaging. She had a colonoscopy about 8 weeks after this episode, which she reports was totally normal. She likens her present illness to what she experienced back in 2017 when diagnosed with ischemic colitis. As for her risk factors for ischemic colitis, she has a significant tobacco pack year history of 60, although she quit smoking 13 years ago. She has hyperlipidemia for which she manages with Lipitor 10mg, daily. Not on aspirin therapy. She is not diabetic. She is not on a direutic. No known history of at rial fibrillation. Mrs. Chao reports a family history of blood clots in her mother and younger sister, and says her older sister had two miscarriages. However, she denies a personal history of prior blood clots. She does not believe that anyone in the family has had a hypercoagulability work-up. Of note, she does use premarin on a daily basis. She had a hysterectomy and bilateral oophorectomy at the age of 33 for significant endometriosis, and she was placed on premarin after the surgery and has been using ever since. ED course: CBC showed mild elevation in WBC count to 11.8. Lipase WNL. El ectrolytes WNL. Kidney function normal. Liver enzymes normal. UA 1+ blood. CTA of abdomen and pelvis showing mild wall thickening of the traverse colon, splenic flexure and proximal descending colon suggestive of a mild, non-specific colitis. Appendix was normal. Gallbladder unremarkable. There is mild mixed atheromatous and atherosclerotic plaque of the abdominal aorta. No aneurysm, dissection or arterial occlusion identified. Diverticulosis, no signs of acute diverticulitis in colon. Principal Diagnosis Probably ischemic colitis Discharge Exam Constitutional WD/WN, vitals as above Eyes EOM intact bilaterally; no conjunctival abnormality ENMT external ear and nose normal, oropharynx normal Neck trachea midline, no thyromegaly normal visual inspection Respiratory normal respiratory effort, lungs clear to auscultation no respiratory distress Cardiovascular RRR, no murmur, no edema Gastrointestinal (Abdomen) Inspection/Auscultation: abdomen normal to inspection and normal bowel sounds; abdomen not distended Percussion/Palpation: abdomen soft; abdomen nontender, no guarding and abdomen not rigid Musculoskeletal no cyanosis or clubbing, extremities motor strength 5/5 Skin no rashes, warm and dry Neurologic moves all extremities and awake Psychiatric Orientation: alert, oriented to person and cooperative Discharge Data Allergies Allergy/AdvReac Type Severity Reaction Status Date / Time No Known Allergies Allergy Unverified 02/04/20 20:17 Consultations 02/04/20 19:21 ED Decision to Admit Stat 02/05/20 15:08 Consult Gastroenterology Routine 02/05/20 16:16 Consult Hematology Routine Ordered Studies 02/04/20 18:10 CT angio abdomen pelvis w con Stat Hospital Course (1) BRBPR (bright red blood per rectum): CT a/p showed mild wall thickening of the distal transverse colon, splenic flexure and proximal descending colon is compatible with a mild nonspecific co litis. - History of ischemic colitis in 2017. Had a colonoscopy around that time as well without any noted abnormalities. - Never had any hyper-coaguable work-up in the past. - Seen by GI and oncology who feel that she likely had another episode of ischemic colitis. Improved quickly and wanted to go home by 02/05. No pain in the last 24 hours and had a non-bloody BM as well. No hypercoagulable work-up per oncology, but will see Dr. Mathew in another 4 weeks to re-assess. 1) Increased atorvastatin to high-dose to try to prevent further thrombotic events. 2) She will discuss with her china decorator regarding stopping hormonal supplementation as this could be raising her thrombotic risk as well. (2) Colitis: As on CT a/p on admission. - Treat as above (3) Hyperlipidemia: - Continue statin at higher dose. (4) DVT prophylaxis: SCDs - Holding heparin for bleeding Total Time Total Time Spent Total Time Spent (In Minutes): 35 Discharge Plan Discharge Items Patient Disposition: Home - Self-Care Reason For Visit: COLITIS Discharge Diagnosis: Ischemic colitis Activity: Resume your previous activity Non-emergency contact: Primary Care Provider and Formula Clerk Call non-emergency contact if: your symptoms worsen and your temperature is above 101 Follow-up/Referrals: Saúl Mathew DO [Physician] - 03/06/20 12:30 pm (Please see Dr. Mathew in 4 weeks if your PCP and you discuss it and feel like you need further work-up.) Sean Jones [Physician] - Norma Lujan [Primary Care Provider] - (Please, follow up with Dr. Lujan. *A nurse from this office will contact you with the appointment information. If you have any questions, call the office at [phone]. Spoke with Dr. Itzel Barclay's office and made her aware of follow up visit with Dr. Mathew.) Diet: Regular Addtl Attending Provider Instructions: You were admitted to the hospital with stomach pain. Our CT scan of your abdomen showed inflammation of the area in your large intestine (colon) that has two different blood sources and can sometimes suffer from lower blood flow. You have a variety of risk factors for this occurring, including the history of smoking (but great job on quitting!), the estrogen supplement, and your strong family history of blood clots. I would encourage you to talk with your china decorator about your hormone supplement. It might be time to reduce the dose or even stop all-together. Additionally, I have sent a higher strength of your cholesterol medication to the pharmacy. This may also help prevent further issues. Please see Dr. Mathew in 4 weeks to discuss any further testing he may feel is needed. Please see your PCP in the next 1-2 weeks as well to be sure you're doing well and no stomach pain has returned. Pending Studies at Discharge: No Stand-Alone Forms: My [facility] [employer], Smoking Cessation Medications and DC Order Prescriptions: New atorvastatin 40 mg tablet 40 mg PO DAILY Qty: 30 RF: 0 Continued Premarin 0.9 mg tablet 0.9 mg PO DAILY RF: 0 Discontinued atorvastatin 10 mg tablet 10 mg PO QAM RF: 0 Discharge Orders: Discharge Order (Routine); Ordered 02/07/20 Ordered By: Blas Tejada Admission Data Admit Date/Time: 02/07/20 07:28 Attending Provider: Blas Tejada Admit Provider: Marcela Mackenzie Primary Care Provider: Norma Lujan Other Providers: Blas Tejada ; Sean Jones ; Saúl Mathew V. Other Interventions: Discharge Summary Assessment (RN) Last Done: 02/07/20 09:37 DC Date/Time DO NOT enter until pt leaves facility: 02/07/20 11:32 Coding Level of Care Code D/C Day Management >30 mins Diagnoses BRBPR (bright red blood per rectum) K62.5 Colitis K52.9 Hyperlipidemia E78.5 DVT prophylaxis Z29.9
== END 2020-02-07 11:32 | disposition home or self-care (01) ==
LOC: 3E 16:29 → ED 16:29 → SUATTDRO 20:17 → 3E 23:04

== ENCOUNTER 2022-11-30 12:54 | Inpatient (IN) ==
--- NOTE | 2022-11-30 13:25 | ED Triage Note ---
Date of Service November 30, 2022 History of Present Illness This patient was briefly evaluated while in triage. An abbreviated physical exam was performed. This patient is a 57-year-old Female who presents to the ED for evaluation of left upper abdominal pain and shortness of breath. She was recently admitted to [facility] and had clips placed and then subsequently tightened. Reports history of diverticulitis. No vomiting or diarrhea. Physical Exam CONSTITUTIONAL: uncomfortable, bent to left side, in pain SKIN: pink, warm, dry CARDIAC: tachycardic rate and regular rhythm RESPIRATORY: slightly shallow breaths ABDOMEN: diffuse tenderness Initial orders for labs and / or imaging were placed and patient was placed in the waiting area until a bed is available. Please see further documentation for the full ED course.
[2022-11-30 15:04] LABS: iSTAT Creatinine 0.7 mg/dl (0.6-1.3); iSTAT Hemoglobin 14.3 g/dl (12.0-16.0); iSTAT Ionized Calcium 1.19 mmol/l (1.12-1.32); iSTAT Potassium 5.3 mmol/L (3.3-5.0)
[2022-11-30] MEDS ORDERED: OPTIRAY 320 500ml IV ONE (15:06)
[2022-11-30 15:12] LABS: Hematocrit (blood only) 42.3 % (37.0-47.0); Hemoglobin 14.6 g/dl (12.0-16.0); Mean Corpuscular Hemoglobin 30.4 pg (25.0-34.0); Mean Corpuscular Hgb Conc 34.5 g/dL (32.0-36.0); Mean Corpuscular Volume 87.9 fL (80.0-100.0); Mean Platelet Volume 9.1 fL (9.4-12.4); Platelet Count 547 K/uL (130-400); RDW Coefficient of Variation 13.2 % (11.5-14.5); RDW Standard Deviation 42.9 fL (36.4-46.3); Red Blood Count 4.81 M/uL (4.20-5.40)
--- NOTE | 2022-11-30 15:16 | Electrocardiogram Report ---
Test Reason : Blood Pressure : / mmHG Vent. Rate : 091 BPM Atrial Rate : 091 BPM P-R Int : 150 ms QRS Dur : 072 ms QT Int : 342 ms P-R-T Axes : 051 -16 031 degrees QTc Int : 420 ms Normal sinus rhythm Voltage criteria for left ventricular hypertrophy Abnormal ECG When compared with ECG of 14-AUG-2022 11:10, QRS axis Shifted right Confirmed by Eliceo Cox ([id number]) on 11/30/2022 3:16:07 PM Referred By: Confirmed By:Eliceo Cox
--- NOTE | 2022-11-30 15:31 | CT Scan Report ---
CT SCAN OF THE ABDOMEN AND PELVIS WITH IV CONTRAST CLINICAL HISTORY: Left-sided abdominal pain. COMPARISON STUDY: Abdominal CT dated 07/20/2021. TECHNIQUE: Following the IV administration of 113 cc of Optiray 320, CT scan of the abdomen and pelv is is performed from the lung bases to the proximal femora. Images are reviewed in the axial, sagitta l, and coronal planes. IV contrast was administered without complication. A dose lowering technique w as utilized adhering to the principles of ALARA. CT DOSE: 827.96 mGy.cm FINDINGS: Lung bases: The heart is normal in size and without pericardial effusion. There are moderate left and trace right pleural effusions with dependent atelectasis. Liver: The contrast-enhanced liver is normal in size, contour, and attenuation. There is no intrahepa tic biliary ductal dilatation. The hepatic veins and portal veins are patent. Gallbladder: Unremarkable. Spleen: Normal in size and attenuation. Pancreas: Unremarkable. Adrenal glands: Unremarkable. Kidneys: The contrast enhanced kidneys are normal in size and without hydronephrosis. The kidneys enh ance symmetrically. Abdominal vasculature: The abdominal aorta is normal in course and caliber noting mild to moderate at herosclerotic calcification. Bowel: There is postsurgical change from sigmoid resection with colocolonic anastomosis. There is mil d diverticulosis of the remaining colon without CT evidence of acute diverticulitis. Liquid stool is noted in the right colon. No bowel obstruction is seen. The appendix is well-visualized and normal. Peritoneum and retroperitoneum: There is no intraperitoneal free air similarly the diaphragm. There i s no abdominal ascites. There is a small fat-containing umbilical hernia. There is a gas and fluid co ntaining fistulous tract which originates at the sigmoid anastomosis. This extends approximately 20 c m superiorly into the left retroperitoneal space, anterior to psoas muscle and region the level of th e lower pole of the left kidney as seen on axial image #220. There is surrounding inflammation and fl uid, and the largest loculation is seen at the level of the pelvic inlet on image #296. This measures 3.6 x 4.7 cm in axial dimension. A focus of retroperitoneal free air is seen anterior to left kidney on axial image #155. The fistula also closely approximates the vagina. Lymphadenopathy: None. Pelvic viscera: The bladder is decompressed and could not be assessed. The uterus is surgically absen t. No adnexal lesion is seen. Skeletal structures: The skeletal structures are osteopenic. There are bilateral pars defects at L5 w ith advanced disc space narrowing and 11 mm of anterolisthesis at L5-S1. Mild spondylotic changes see n throughout the remainder of the lumbar spine. No lytic or blastic lesions are seen. IMPRESSION: 1. There is postsurgical change from sigmoid colon resection with colocolonic anastomosis. 2. There is a large retroperitoneal fistulous which extends from the sigmoid anastomosis approximatel y 20 cm superiorly to the level of the left kidney as detailed above. This contains complex gas and f luid with surrounding inflammation. This likely represents colonic contents/infection. Surgical evalu ation is advised. 3. There are tiny foci of left sided retroperitoneal free air. 4. The fistula also closely approximates the vagina. A concurrent colovaginal fistula is not excluded . 5. There is mild diverticulosis of the remaining colon without CT evidence of acute diverticulitis. 6. Left larger than right pleural effusions with dependent atelectasis. 7. Additional findings as above. ACT 112: Negative or not required by law. Electronically signed by: Joshua Bar M.D. 11/30/2022 3:29 PM
[2022-11-30 15:34] LABS: Basophils # (auto) 0.07 K/uL (0-0.2); Basophils % (auto) 0.3 %; Immature Granulocytes # (auto) 0.29 K/uL (0.01-0.20); Immature Granulocytes % (auto) 1.1 %; Lymphocytes # (auto) 1.03 K/uL (1.2-3.4); Monocytes # (auto) 1.18 K/uL (0.11-0.59); Monocytes % (auto) 4.6 %; Neutrophils # (auto) 23.33 K/uL (1.40-6.50)
--- NOTE | 2022-11-30 15:36 | CT Scan Report ---
CT ANGIOGRAPHY OF THE CHEST, PULMONARY EMBOLUS PROTOCOL CLINICAL HISTORY: Left upper abd pain, shortness of breath COMPARISON STUDY: Chest CT August 14, 2022. TECHNIQUE: Following IV administration of 113 mL of Optiray, helical axial images of the chest were o btained utilizing the pulmonary embolus protocol. Maximal intensity projections and sagittal and cor onal reformats were viewed on an independent 3D workstation. IV contrast was administered without co mplication. Automated exposure control was utilized for the study. A dose lowering technique was ut ilized adhering to the principles of ALARA. FINDINGS: No pulmonary emboli are identified. There is no thoracic aortic dissection. The size of th e heart is normal. There is no pericardial effusion. A moderate left pleural effusion has developed s soumya chest CT of August 14, 2022. There is a trace right pleural effusion. There is no pneumothorax . Subpleural opacities favor atelectasis. Linear opacities reflect atelectasis. A 4 mm subpleural rig ht lower lobe nodule on image 78 of 231 is unchanged since chest CT of November 03, 2017. This is benign. Upper lobe predominant paraseptal emphysema is present. There is no consolidation to suggest pneumon ia. The abdomen and pelvis CT will be reported separately. There may be mild pulmonary vascular conge stion. IMPRESSION: 1. No pulmonary emboli identified. 2. Interval development of moderate left and trace right pleural effusions. Pulmonary vascular conges tion. 3. Upper lobe predominant paraseptal emphysema. ACT 112: Negative or not required by law. Electronically signed by: Keenan Ashford M.D. 11/30/2022 3:35 PM
[2022-11-30 15:40] LABS: Troponin I High Sensitivity 7.2 pg/ml (0-14)
[2022-11-30 15:42] LABS: Albumin Level 3.8 gm/dl (3.4-5.0); Calcium 9.3 mg/dl (8.6-10.3); Potassium 5.3 mmol/L (3.5-5.1)
[2022-11-30 15:48] LABS: Albumin Globulin Ratio 0.8 (0.9-2); BUN Creatinine Ratio 8.5 (10-20); Creatinine Clr Calc Pharmacy 67.5 ml/min; Est GFR (African American) 92.7 ml/min; Globulin 4.5 gm/dl (2.5-4.0); Total Protein 8.3 gm/dl (6.0-8.3)
[2022-11-30] MEDS ORDERED: ONDANSETRON INJ 2 MG/ML 2 ML VIAL IV STA (15:56)
[2022-11-30] MEDS ORDERED: VANCOMYCIN HCL 1,750 MG in SODIUM CHLORIDE 0.9% 500 ML IV ONE (15:56)
[2022-11-30] MEDS ORDERED: PIPERACILLIN/TAZOBACTAM 4.5 GM in DEXTROSE 5% 100 ML IV ONE (15:56)
[2022-11-30] MEDS ORDERED: SODIUM CHLORIDE 0.9% 500 ML IV ONE (15:56)
[2022-11-30] MEDS ORDERED: VANCOMYCIN CONSULT ACTIVE PRN (15:56)
[2022-11-30] MEDS ORDERED: MoRPHine SULFATE 4 MG/ML 1 ML CARP\\VIAL IV STA (15:56)
--- NOTE | 2022-11-30 16:17 | Emergency Department Note ---
Impression & Plan Bowel perforation, Abdominal infection, Sepsis, Fistula ED Provider Note NAME: JAE PENN AGE: 57 SEX: F : 1965 ARRIVES VIA: Walk-In INFORMANT: Patient, ED PROVIDER(S): Pedro Rivera MD CHIEF COMPLAINT: Chest and abdominal pain MEDICAL DECISION MAKING: Patient presents due to concern for chest and abdominal pain in setting of a recent status post colonoscopy polypectomy bowel perforation and diverticulitis. IV was established blood work was obtained and the patient did have a CT angiography of the chest and CT of the abdomen pelvis. Heart rate has improved since triage. The patient does have left-sided abdominal and chest wall pain. The patient's blood work Showed a white count of 25 with a normal H&H and thrombocytosis of 547. The patient's BUN and creatinine is 7.8. Potassium today 5.3. Glucose of 112. Lipase is 240. Patient was ordered Zosyn as well as vancomycin IV fluids and IV morphine and IV Zofran. The patient's CT angiography of the chest shows no PE but does shows moderate left and trace right pleural effusions with pulmonary vascular congestion and emphysematous change. 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 There are tiny foci of left-sided retroperitoneal free air. Fistula closely approximates the vagina colovaginal fistula is not excluded. Diverticulosis without obvious evidence of diverticulitis. Postsurgical change shows sigmoid colon resection with colonic anastomosis. I did initiate a consult to general surgery. After speaking with Johanna Royal PA-C in consultation with Dr. Wilkerson they recommended transfer. I did speak with Dr. Crocker who did accept the patient. Patient currently on a wait list with likely 24 to 48-hour transfer time. I did speak with Dr. Wilkerson again who recommended admission to medicine and they will see in consultation. Given the patient's pleural effusions patient did not receive a 30 cc/kg bolus. The patient is afebrile. The patient did receive a 500 cc IV fluid bolus Initial lactate of 2.2. I did speak with the on-call hospitalist service Jm Bernal PA-C and the patient was admitted by Dr. Canada. Repeat lactate was 1.3. Prior /Outside records reviewed: I did review the patient's discharge summary from Dr. Boykin from November 27. Patient had a colonoscopy on with polypectomy. Pain got worse with associated rectal bleeding. Work-up did show concern for stranding free gas in the pelvis adjacent sigmoid colon with suspected microperforation. GI and general surgery were involved and recommended bowel rest IV antibiotics. Patient did have a sigmoidoscopy on 327 which showed an intact clip contracted EXTR have from under the clip and this was tightened using an Endoloop. Serial CTs showed that she was improving. Did review the patient's CT from November 24, 2022. CT showed small peripheral within the mid sigmoid colon wall contrast and gas extensive fluid from perforation of the deep pelvis and lower abdomen. No drainable abscess collect ion at that time. Small amount of free air noted within the abdomen and pelvis. There is a pocket multiple foci of extraluminal gas within the pelvis and right to sigmoid colon. Patient did have noted bilateral pleural effusions and anasarca noted on the CT. Differential diagnosis: Cardiac ischemia, aortic dissection, pulmonary embolism, pneumothorax, pneumonia, pericarditis, myocarditis, esophageal rupture, GERD, cholecystitis, pancreatitis, musculoskeletal, as well as other pathologies. Diagnostics, as interpreted by me: ECG: Normal sinus rhythm, rate of 91 normal intervals normal axis no ST elevations. Cardiac monitoring: An order was placed for continuous cardiac monitoring. The monitor shows a rate of 87 with sinus rhythm. Patient was placed on pulse oximetry Medical decision rules: None Imaging studies: See below HPI: Patient presents due to concern for chest pain which she developed around 130 this morning. The patient did take some OxyContin which she was prescribed as the patient did have a recent admission for likely bowel perforation at [facility]. The patient states that they had discussed conservative management treatment. Patient denies any cough or fever. No nausea vomiting. The patient states that she had a recent bowel movement no blood that she noticed. No dysuria no history of kidney stones. Patient states that her pain is primarily under the left breast but denies any trauma to that area. Patient denies any overlying skin changes that area. Patient denies any history of DVT or PE. The patient denies any leg swelling or calf pain. PAST MEDICAL HISTORY: See Below PAST SURGICAL HISTORY: See Below SOCIAL HISTORY: See Below HOME MEDICATIONS: See Below ALLERGIES: See Below VITALS: See Below PHYSICAL EXAMINATION: GENERAL: NAD, wearing a mask, non-toxic. EYE EXAM: Normal conjunctiva. PERRL, no anisocoria and EOM's grossly intact w/o pain. NECK: Supple, no nuchal rigidity, no adenopathy, non-tender. No signs of meningismus. FROM of the neck with good chin to chest and neck extension. No stridor. Chest: Reproducible left-sided lower chest wall pain. LUNGS: Bibasilar crackles noted. Normal chest wall mechanics. HEART: NSR, no MRG. ABDOMEN: Abdomen soft, non-tender, no masses, no rebound or guarding. BACK: No CVA TTP. SKIN: No rashes and no bruising. UPPER EXTREMITIES: Upper extremities are grossly normal. LOWER EXTREMITIES: Grossly normal, no edema. Negative Homans' sign bilaterally NEURO EXAM: A&O x3, cranial nerves II-XII grossly intact, normal speech, moves all 4 extremities. 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 History of endometriosis History of ischemic colitis HLD (hyperlipidemia) Surgical History History of History of colonoscopy History of laparoscopy History of total abdominal hysterectomy and bilateral salpingo-oophorectomy History of wisdom tooth extraction Hx of bladder repair surgery bladder tacking S/P excision of lipoma (08/25/21) Left Lower Extremity Lipoma Excision, Upper Back Cyst Excision(Left) - Darius Perez, 08/25/2021 Family History Sister Breast cancer Mother Hypertension Other No family history of adverse response to anesthesia Social History Smoking Status: Former smoker Second Hand Exposure: Yes; Hx Alcohol Use: Yes Alcohol type: hard liquor Hx Substance Use: No Preferred Language: Greek Communication Ability: Effective 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 Beliefs That Will Affect Care: None marital status: Current Living Situation: Spouse current occupational status: employed 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 How many Children do You have: 2 Feels Safe at Home: Yes during the past year weight has: remained stable Assistive Devices: Glasses Allergies Allergies Allergy/AdvReac Type Severity Reaction Status Date / Time No Known Allergies Allergy Verified 11/30/22 17:49 Home Meds Home Medications Medication Instructions Recorded Confirmed atorvastatin 40 mg tablet (Lipitor) 40 mg PO QAM 07/30/21 11/30/22 estradiol 0.5 mg tablet 0.5 mg PO QAM 07/30/21 11/30/22 pantoprazole 40 mg tablet,delayed 40 mg PO QAM 07/30/21 11/30/22 release (Protonix) ondansetron HCl 8 mg tablet 8 mg PO Q8H PRN Nausea 05/05/22 11/30/22 Bifidobacterium infantis 4 mg 4 mg PO 3XWK 09/01/22 11/30/22 capsule (Align) [id number] ac 400 1 tab PO QAM 09/01/22 11/30/22 mcg-calcium carb 500 mg-vit K1 20 mcg tablet (Women's 50 Plus Daily Formula) amoxicillin 875 mg-potassium 1 tab PO BID 11/30/22 11/30/22 clavulanate 125 mg tablet famotidine 20 mg tablet 20 mg PO BID 11/30/22 11/30/22 oxycodone 5 mg capsule 5 mg PO Q4H PRN Pain 11/30/22 11/30/22 potassium chloride 10 mEq 10 meq PO DAILY 11/30/22 11/30/22 tablet,extended release Previous Rx's Medication Instructions Recorded promethazine 12.5 mg tablet 12.5 mg PO Q6H PRN nausea and 05/05/22 vomiting #12 tabs albuterol sulfate 90 mcg/actuation 2 inh inhalation Q4H PRN shortness 08/14/22 aerosol inhaler of breath or wheezing #8.5 grams Results & Data (ED) Vital Signs Vital Signs - 24 hr 11/30/22 13:11 11/30/22 16:00 11/30/22 16:01 Temperature 36.4 C L Temperature Source Temporal Artery Scan Pulse Rate 102 H 83 81 Pulse Rate from SpO2 Sensor 82 Respiratory Rate 26 H Blood Pressure 145/110 H 130/67 Blood Pressure Mean 121 88 Blood Pressure Position Sitting Pulse Oximetry 95 94 Oxygen Delivery Method Room Air Room Air Sepsis Recent Fever Within 48 Hours Yes Sepsis New/Unexplained Change in Mental Status No Sepsis Action Taken by Nursing Physician Notified 11/30/22 16:19 11/30/22 17:00 11/30/22 17:30 Temperature Temperature Source Pulse Rate 79 77 79 Pulse Rate from SpO2 Sensor 79 75 80 Respiratory Rate Blood Pressure 135/86 130/57 L 122/56 L Blood Pressure Mean 102 81 78 Blood Pressure Position Pulse Oximetry 93 93 92 Oxygen Delivery Method Room Air Room Air Room Air Sepsis Recent Fever Within 48 Hours Sepsis New/Unexplained Change in Mental Status Sepsis Action Taken by Nursing 11/30/22 18:00 Temperature Temperature Source Pulse Rate 87 Pulse Rate from SpO2 Sensor 84 Respiratory Rate Blood Pressure 139/71 Blood Pressure Mean 93 Blood Pressure Position Pulse Oximetry 93 Oxygen Delivery Method Room Air Sepsis Recent Fever Within 48 Hours Sepsis New/Unexplained Change in Mental Status Sepsis Action Taken by Snf Medications Current Medication List: was personally reviewed by me Laboratory Data Attestation: I reviewed the patient's lab results. 11/30/22 14:46 11/30/22 14:46 Lab Results 11/30/22 11/30/22 11/30/22 Range/Units 14:44 14:46 14:46 WBC 25.90 H (4.8-10.8) K/ul RBC 4.81 (4.20-5.40) M/uL Hgb 14.6 (12.0-16.0) g/dl POC Hgb (12.0-16.0) g/dl Hct 42.3 (37.0-47.0) % POC Hct (37-47) % MCV 87.9 (80.0-100.0) fL MCH 30.4 (25.0-34.0) pg MCHC 34.5 (32.0-36.0) g/dL RDW Std Deviation 42.9 (36.4-46.3) fL RDW Coeff of Orly 13.2 (11.5-14.5) % Plt Count 547 H (130-400) K/uL MPV 9.1 L (9.4-12.4) fL Immature Gran % (Auto) 1.1 % Neut % (Auto) 90.0 % Lymph % (Auto) 4.0 % Stanley % (Auto) 4.6 % Eos % (Auto) 0.0 % Baso % (Auto) 0.3 % Neut # (Auto) 23.33 H (1.40-6.50) K/uL Lymph # (Auto) 1.03 L (1.2-3.4) K/uL Stanley # (Auto) 1.18 H (0.11-0.59) K/uL Eos # (Auto) 0.00 (0-0.50) K/uL Baso # (Auto) 0.07 (0-0.2) K/uL Immature Gran # (Auto) 0.29 H (0.01-0.20) K/uL POC Sodium (135-144) mmol/L Sodium 134 L (136-145) mmol/L POC Potassium (3.3-5.0) mmol/L Potassium 5.3 H (3.5-5.1) mmol/L POC Chloride (101-112) mmol/L Chloride 101 (98-107) mmol/L Carbon Dioxide 23 (21-32) mmol/L POC Total CO2 (24-31) mmol/L Anion Gap 10 (3-11) POC Anion Gap (16-25) mmol/L POC BUN (7-18) mg/dl BUN 7 (6-23) mg/dl Creatinine 0.82 (0.6-1.2) mg/dl POC Creatinine (0.6-1.3) mg/dl Est Cr Clr Drug Dosing 67.5 ml/min Est GFR ( Amer) 92.7 ml/min Est GFR (Non-Af Amer) 80.0 ml/min BUN/Creatinine Ratio 8.5 L (10-20) Glucose 112 H (70-99(Fasting)) mg/dl POC Glucose (other) (70-99) mg/dl Lactate (0.4-2.0) mmol/L Calcium 9.3 (8.6-10.3) mg/dl POC Ioniz Calcium Tasha (1.12-1.32) mmol/l Total Bilirubin 1.0 (0.2-1.0) mg/dl AST 37 (13-39) U/L ALT 69 H (7-52) U/L Alkaline Phosphatase 83 (34-104) U/L Troponin I High Sens 7.2 (0-14) pg/ml Total Protein 8.3 (6.0-8.3) gm/dl Albumin 3.8 (3.4-5.0) gm/dl Globulin 4.5 H (2.5-4.0) gm/dl Albumin/Globulin Ratio 0.8 L (0.9-2) Lipase 240 H (11-82) U/L Procalcitonin 0.81 H (0-0.5) ng/ml 11/30/22 11/30/22 Range/Units 14:51 16:39 WBC (4.8-10.8) K/ul RBC (4.20-5.40) M/uL Hgb (12.0-16.0) g/dl POC Hgb 14.3 (12.0-16.0) g/dl Hct (37.0-47.0) % POC Hct 42 (37-47) % MCV (80.0-100.0) fL MCH (25.0-34.0) pg MCHC (32.0-36.0) g/dL RDW Std Deviation (36.4-46.3) fL RDW Coeff of Orly (11.5-14.5) % Plt Count (130-400) K/uL MPV (9.4-12.4) fL Immature Gran % (Auto) % Neut % (Auto) % Lymph % (Auto) % Stanley % (Auto) % Eos % (Auto) % Baso % (Auto) % Neut # (Auto) (1.40-6.50) K/uL Lymph # (Auto) (1.2-3.4) K/uL Stanley # (Auto) (0.11-0.59) K/uL Eos # (Auto) (0-0.50) K/uL Baso # (Auto) (0-0.2) K/uL Immature Gran # (Auto) (0.01-0.20) K/uL POC Sodium 135 (135-144) mmol/L Sodium (136-145) mmol/L POC Potassium 5.3 H (3.3-5.0) mmol/L Potassium (3.5-5.1) mmol/L POC Chloride 100 L (101-112) mmol/L Chloride (98-107) mmol/L Carbon Dioxide (21-32) mmol/L POC Total CO2 22 L (24-31) mmol/L Anion Gap (3-11) POC Anion Gap 19.0 (16-25) mmol/L POC BUN 6 L (7-18) mg/dl BUN (6-23) mg/dl Creatinine (0.6-1.2) mg/dl POC Creatinine 0.7 (0.6-1.3) mg/dl Est Cr Clr Drug Dosing ml/min Est GFR ( Amer) ml/min Est GFR (Non-Af Amer) ml/min BUN/Creatinine Ratio (10-20) Glucose (70-99(Fasting)) mg/dl POC Glucose (other) 118 H (70-99) mg/dl Lactate 2.2 H* (0.4-2.0) mmol/L Calcium (8.6-10.3) mg/dl POC Ioniz Calcium Tasha 1.19 (1.12-1.32) mmol/l Total Bilirubin (0.2-1.0) mg/dl AST (13-39) U/L ALT (7-52) U/L Alkaline Phosphatase (34-104) U/L Troponin I High Sens (0-14) pg/ml Total Protein (6.0-8.3) gm/dl Albumin (3.4-5.0) gm/dl Globulin (2.5-4.0) gm/dl Albumin/Globulin Ratio (0.9-2) Lipase (11-82) U/L Procalcitonin (0-0.5) ng/ml Administered Medications Enoxaparin Sodium (Enoxaparin Inj 40 Mg/0.4 Ml Syr) 40 mg SQ Q24H [facility] Stop: 12/30/22 21:59 Last Admin: 11/30/22 21:50 Dose: 40 mg Documented By: AYDIN Hydromorphone HCl (Hydromorphone Inj 0.5 Mg/0.5 Ml Syr) 0.5 mg IV Q4H PRN PRN Reason: Pain (4,5,6+) Stop: 12/14/22 18:40 Last Admin: 11/30/22 19:46 Dose: 0.5 mg Documented By: AYDIN Piperacillin Sod/Tazobactam (Sod 3.375 gm/ Dextrose) 115 mls @ 28.75 mls/hr IV Q8H [facility]; Protocol Stop: 12/10/22 20:59 Last Admin: 11/30/22 21:50 Dose: 28.8 mls/hr Documented By: AYDIN Lactated Ringer's (Lr) 1,000 mls @ 100 mls/hr IV .Q10H YOVANI Stop: 12/01/22 15:59 Last Admin: 11/30/22 20:34 Dose: 100 mls/hr Documented By: AYDIN Discontinued Medications Piperacillin Sod/Tazobactam (Sod 4.5 gm/ Dextrose) 120 mls @ 200 mls/hr IV NOW ONE; Protocol Stop: 11/30/22 16:31 Last Infusion: 11/30/22 18:19 Dose: 0 mls/hr Documented By: Admin: 11/30/22 16:13 Dose: 200 mls/hr Documented By: GURPREET Sodium Chloride (Nss) 500 mls @ 999 mls/hr IV .Q31M ONE Stop: 11/30/22 16:26 Last Infusion: 11/30/22 18:19 Dose: 0 mls/hr Documented By: Admin: 11/30/22 16:16 Dose: 999 mls/hr Documented By: GURPREET Vancomycin HCl 1,750 mg/ (Sodium Chloride) 535 mls @ 200 mls/hr IV NOW ONE Stop: 11/30/22 18:36 Last Admin: 11/30/22 17:23 Dose: 200 mls/hr Documented By: GURPREET Ioversol (Optiray 320 500ml) 113 ml IV ONCE ONE Stop: 11/30/22 15:07 Last Admin: 11/30/22 15:06 Dose: 113 ml Documented By: CADEN Morphine Sulfate (Morphine Sulfate 4 Mg/Ml 1 Ml Carp\Vial) 4 mg IV NOW STA Stop: 11/30/22 15:57 Last Admin: 11/30/22 16:14 Dose: 4 mg Documented By: GURPREET Ondansetron HCl (Ondansetron Inj 2 Mg/Ml 2 Ml Vial) 4 mg IV NOW STA Stop: 11/30/22 15:57 Last Admin: 11/30/22 16:17 Dose: 4 mg Documented By: GURPREET Imaging Data Radiologist's Impression: Abdomen/Pelvis CT 11/30/22 13:19 CT SCAN OF THE ABDOMEN AND PELVIS WITH IV CONTRAST CLINICAL HISTORY: Left-sided abdominal pain. COMPARISON STUDY: Abdominal CT dated 07/20/2021. TECHNIQUE: Following the IV administration of 113 cc of Optiray 320, CT scan of the abdomen and pelvis is performed from the lung bases to the proximal femora. Images are reviewed in the axial, sagittal, and coronal planes. IV contrast was administered without complication. A dose lowering technique was utilized adhering to the principles of ALARA. CT DOSE: 827.96 mGy.cm FINDINGS: Lung bases: The heart is normal in size and without pericardial effusion. There are moderate left and trace right pleural effusions with dependent atelectasis. Liver: The contrast-enhanced liver is normal in size, contour, and attenuation. There is no intrahepatic biliary ductal dilatation. The hepatic veins and portal veins are patent. Gallbladder: Unremarkable. Spleen: Normal in size and attenuation. Pancreas: Unremarkable. Adrenal glands: Unremarkable. Kidneys: The contrast enhanced kidneys are normal in size and without hydronephrosis. The kidneys enhance symmetrically. Abdominal vasculature: The abdominal aorta is normal in course and caliber noting mild to moderate atherosclerotic calcification. Bowel: There is postsurgical change from sigmoid resection with colocolonic anastomosis. There is mild diverticulosis of the remaining colon without CT evidence of acute diverticulitis. Liquid stool is noted in the right colon. No bowel obstruction is seen. The appendix is well-visualized and normal. Peritoneum and retroperitoneum: There is no intraperitoneal free air similarly the diaphragm. There is no abdominal ascites. There is a small fat-containing umbilical hernia. There is a gas and fluid containing fistulous tract which originates at the sigmoid anastomosis. This extends approximately 20 cm superiorly into the left retroperitoneal space, anterior to psoas muscle and region the level of the lower pole of the left kidney as seen on axial image #220. There is surrounding inflammation and fluid, and the largest loculation is seen at the level of the pelvic inlet on image #296. This measures 3.6 x 4.7 cm in axial dimension. A focus of retroperitoneal free air is seen anterior to left kidney on axial image #155. The fistula also closely approximates the vagina. Lymphadenopathy: None. Pelvic viscera: The bladder is decompressed and could not be assessed. The uterus is surgically absent. No adnexal lesion is seen. Skeletal structures: The skeletal structures are osteopenic. There are bilateral pars defects at L5 with advanced disc space narrowing and 11 mm of anterolisthesis at L5-S1. Mild spondylotic changes seen throughout the remainder of the lumbar spine. No lytic or blastic lesions are seen. IMPRESSION: 1. There is postsurgical change from sigmoid colon resection with colocolonic anastomosis. 2. 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 This contains complex gas and fluid with surrounding inflammation. This likely represents colonic contents/infection. Surgical evaluation is advised. 3. There are tiny foci of left sided retroperitoneal free air. 4. The fistula also closely approximates the vagina. A concurrent colovaginal fistula is not excluded. 5. There is mild diverticulosis of the remaining colon without CT evidence of acute diverticulitis. 6. Left larger than right pleural effusions with dependent atelectasis. 7. Additional findings as above. ACT 112: Negative or not required by law. Electronically signed by: Joshua Bar M.D. 11/30/2022 3:29 PM Chest CTA 11/30/22 13:21 CT ANGIOGRAPHY OF THE CHEST, PULMONARY EMBOLUS PROTOCOL CLINICAL HISTORY: Left upper abd pain, shortness of breath COMPARISON STUDY: Chest CT August 14, 2022. TECHNIQUE: Following IV administration of 113 mL of Optiray, helical axial images of the chest were obtained utilizing the pulmonary embolus protocol. Maximal intensity projections and sagittal and coronal reformats were viewed on an independent 3D workstation. IV contrast was administered without complication. Automated exposure control was utilized for the study. A dose lowering technique was utilized adhering to the principles of ALARA. FINDINGS: No pulmonary emboli are identified. There is no thoracic aortic dissection. The size of the heart is normal. There is no pericardial effusion. A moderate left pleural effusion has developed since chest CT of August 14, 2022. There is a trace right pleural effusion. There is no pneumothorax. Subpleural opacities favor atelectasis. Linear opacities reflect atelectasis. A 4 mm subpleural right lower lobe nodule on image 78 of 231 is unchanged since chest CT of November 03, 2017. This is benign. Upper lobe predominant paraseptal emphysema is present. There is no consolidation to suggest pneumonia. The abdomen and pelvis CT will be reported separately. There may be mild pulmonary vascular congestion. IMPRESSION: 1. No pulmonary emboli identified. 2. Interval development of moderate left and trace right pleural effusions. Pulmonary vascular congestion. 3. Upper lobe predominant paraseptal emphysema. ACT 112: Negative or not required by law. Electronically signed by: Keenan Ashford M.D. 11/30/2022 3:35 PM Discharge Plan Visit Data Chief Complaint: Rib Injury/Pain Stated Complaint: left side rib pain ED Provider: Pedro Rivera Discharge Problem: Bowel perforation, Abdominal infection, Sepsis, Fistula Discharge Instructions Interventions: ED Discharge Assessment Last Done: 11/30/22 21:52
--- NOTE | 2022-11-30 18:23 | History & Physical Report ---
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 This contains complex gas and fluid with surrounding inflammation. >ED staff spoke with [facility] who accepted the patient but will not have an open bed for 24-48 hours, General Surgery was consulted and will follow, no acute s urgical intervention at this time -Will continue her on Vancomycin and Zosyn for now -NPO except meds, Light IV hydration with LR at 80 mL/hr x 2 bags for now -Will touch base with Surgery ZENIA at 7 pm to see if they are ok with clears at this time -Pain control with IV tylenol for mild pain and 0.5 mg IV Dilaudid q4h prn severe pain -Monitor on tele -BL SCD's and Sub-Q Lovenox for DVT PPX -AM CBC, CMP, Mag, PT/INR (2) Hyperkalemia: Plan: -Noted to be 5.3 in the ED, no acute ECG changes -Will repeat another potassium level this evening to ensure it's trending down -Hold oral potassium for now -AM potassium level (3) Hyperlipidemia: Plan: -Continue atorvastatin (4) GERD (gastroesophageal reflux disease): Plan: -40 mg IV Protonix daily while NPO (5) Lactate blood increase: Plan: -Initial lactate noted to be 2.2, cleared to 1.3 on repeat, continue IV fluids Plan The patient was discussed with Dr. Canada at the time of the admission History of Present Illness Chief Complaint: Left chest/rib pain Primary Care Provider: Norma Hoyt Tai Hunt is a 57 year old female with a PMH significant for ischemic colitis, hyperlipidemia, GERD who presented to the [facility] ED on 11/30/22 with a chief complaint of left rib/side pain. The patient was recently discharged from [facility] after In the ED the patient was found to be afebrile, hemodynamically stable, and stable on RA. Labs were remarkable for a leukocytosis of 25 with left shift of 23, stable hgb, thrombocytosis of 547, potassium of 5.3, lactate of 2.2, ALT of 69, lipase of 240, procal of 0.81. CTA of the chest was read as "1. No pulmonary emboli identified. 2. Interval development of moderate left and trace right pleural effusions. Pulmonary vascular congestion. 3. Upper lobe predominant paraseptal emphysema.". CTA of the abd/pelvis with IV contrast was read as "1. There is postsurgical change from sigmoid colon resection with colocolonic anastomosis. 2. 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 This contains complex gas and fluid with surrounding inflammation. This likely represents colonic contents/infection. Surgical evaluation is advised. 3. There are tiny foci of left sided retroperitoneal free air. 4. The fistula also closely approximates the vagina. A concurrent colovaginal fistula is not excluded. 5. There is mild diverticulosis of the remaining colon without CT evidence of acute diverticulitis. 6. Left larger than right pleural effusions with dependent atelectasis. 7. Additional findings as above.". The patient was initially given a dose of Zosyn, Vancomycin, 4 mg IV morphine, and a 500 mL NSS bolus. General Surgery was consulted and recommended transferred to a tertiary care facility. [facility] accepted the patient but they will not have an available bed for the next 24-48 hours. Surgery recommended medicine admission and they will follow until the patient is transferred. At the time of the exam the patient was resting in bed in no acute distress. She initially underwent a colonoscopy and sigmoid polypectomy at [facility] on 11/20. Over the next few days she developed progressive abd pain and abd distention. She was admitted to [facility] from 11/20-11/27 for a contained bowel perforation. She was treated conservatively with bowel rest and IV antibiotics. Per the discharge summary, the patient had serial CT scans during her admission which showed improvement and her diet was able to be advanced. She was discharged on 11/27 on Augmentin. Since 11/27 she has had progressive left upper abd/left chest pain. She had a bowel movement in the ED without blood or melena and has been passing gas since. She denies recent fever, chills, cough, nausea, vomiting, dysuria, hematuria, lower extremity swelling and recent trauma. I explained that we will admit her to our service with surgery following until she can be transferred to [facility]. She wishes to be a full code and for her to make medical decisions for her if she cannot make decisions herself. Transfer documentation was filled out by the ED staff and placed in the patient's chart Please refer to Dr. Canada's attestation for any changes to the treatment plan Allergies Allergy/AdvReac Type Severity Reaction Status Date / Time No Known Allergies Allergy Verified 11/30/22 17:49 Home Medications Medication Instructions Recorded Confirmed Type atorvastatin 40 mg tablet (Lipitor) 40 mg PO QAM 07/30/21 11/30/22 History estradiol 0.5 mg tablet 0.5 mg PO QAM 07/30/21 11/30/22 History pantoprazole 40 mg tablet,delayed 40 mg PO QAM 07/30/21 11/30/22 History release (Protonix) ondansetron HCl 8 mg tablet 8 mg PO Q8H PRN Nausea 05/05/22 11/30/22 History promethazine 12.5 mg tablet 12.5 mg PO Q6H PRN nausea and 05/05/22 11/30/22 Rx vomiting #12 tabs albuterol sulfate 90 mcg/actuation 2 inh inhalation Q4H PRN shortness 08/14/22 11/30/22 Rx aerosol inhaler of breath or wheezing #8.5 grams Bifidobacterium infantis 4 mg 4 mg PO 3XWK 09/01/22 11/30/22 History capsule (Align) [id number]-[id number]-vqkol ac 400 1 tab PO QAM 09/01/22 11/30/22 History mcg-calcium carb 500 mg-vit K1 20 mcg tablet (Women's 50 Plus Daily Formula) amoxicillin 875 mg-potassium 1 tab PO BID 11/30/22 11/30/22 History clavulanate 125 mg tablet famotidine 20 mg tablet 20 mg PO BID 11/30/22 11/30/22 History oxycodone 5 mg capsule 5 mg PO Q4H PRN Pain 11/30/22 11/30/22 History potassium chloride 10 mEq 10 meq PO DAILY 11/30/22 11/30/22 History tablet,extended release Past Med/Surg History Medical History (Updated 12/01/22 @ 10:38 by Boston Wilkerson DO, FACS) Abscess of sigmoid colon Cardiac murmur 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 History of endometriosis History of ischemic colitis HLD (hyperlipidemia) Surgical History History of History of colonoscopy History of laparoscopy History of total abdominal hysterectomy and bilateral salpingo-oophorectomy History of wisdom tooth extraction Hx of bladder repair surgery bladder tacking S/P excision of lipoma (08/25/21) Left Lower Extremity Lipoma Excision, Upper Back Cyst Excision(Left) - Darius Perez DO 08/25/2021 Family History Sister Breast cancer Mother Hypertension Other No family history of adverse response to anesthesia Social History Smoking Status: Former smoker Second Hand Exposure: Yes; Hx Alcohol Use: No Hx Substance Use: No Preferred Language: Welsh Communication Ability: Effective 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 Required: No Beliefs That Will Affect Care: None marital status: Current Living Situation: Spouse current occupational status: employed 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 How many Children do You have: 2 Feels Safe at Home: Yes during the past year weight has: remained stable Assistive Devices: None Physical Exam Physical Exam: Physical Exam: General: In no acute distress, stated age, well-nourished, good hygiene, non- toxic appearing HEENT: Normocephalic, atraumatic, no scleral icterus, pupils around round, symmetrical, and reactive to light, moist mucus membranes, trachea midline, no thyromegaly Chest/Pulm: No respiratory distress, symmetrical chest expansion, rhonchi noted in the BL lower lung [place] Cardiac: RRR, no murmurs noted Abdomen: Negative for ascites and bruising, normoactive bowel sounds, soft, tender to palpation in the upper abdominal del[place]z Musculoskeletal: Symmetrical and without signs of acute trauma, upper and lower extremities with full ROM, no atrophy, spasticity, or flaccidity Extremities: Radial, dorsalis pedis, and posterior tibial pulses are intact and symmetrical, no edema noted in the BL LE's Skin: Warm, dry, no rashes , lesions, or scars noted Neuro: Alert and oriented to person, place, month, year, and president, no focal defects, no tremors noted Psych: No acute distress, calm and cooperative during the exam Results & Data Results & Data Vital Signs (Past 12 Hours) Vital Signs Temp Pulse Resp BP Pulse Ox O2 Del Method 11/30/22 16:19 79 135/86 93 Room Air 11/30/22 16:01 81 130/67 94 Room Air 11/30/22 16:00 83 11/30/22 13:11 36.4 C L 102 H 26 H 145/110 H 95 Room Air Laboratory Results Abnormal lab results 11/30/22 11/30/22 11/30/22 Range/Units 14:44 14:46 14:46 WBC 25.90 H (4.8-10.8) K/ul Plt Count 547 H (130-400) K/uL MPV 9.1 L (9.4-12.4) fL Neut # (Auto) 23.33 H (1.40-6.50) K/uL Lymph # (Auto) 1.03 L (1.2-3.4) K/uL [place] # (Auto) 1.18 H (0.11-0.59) K/uL Immature Gran # (Auto) 0.29 H (0.01-0.20) K/uL Sodium 134 L (136-145) mmol/L POC Potassium (3.3-5.0) mmol/L Potassium 5.3 H (3.5-5.1) mmol/L POC Chloride (101-112) mmol/L POC Total CO2 (24-31) mmol/L POC BUN (7-18) mg/dl BUN/Creatinine Ratio 8.5 L (10-20) Glucose 112 H (70-99(Fasting)) mg/dl POC Glucose (other) (70-99) mg/dl Lactate (0.4-2.0) mmol/L ALT 69 H (7-52) U/L Globulin 4.5 H (2.5-4.0) gm/dl Albumin/Globulin Ratio 0.8 L (0.9-2) Lipase 240 H (11-82) U/L Procalcitonin 0.81 H (0-0.5) ng/ml 11/30/22 11/30/22 Range/Units 14:51 16:39 WBC (4.8-10.8) K/ul Plt Count (130-400) K/uL MPV (9.4-12.4) fL Neut # (Auto) (1.40-6.50) K/uL Lymph # (Auto) (1.2-3.4) K/uL [place] # (Auto) (0.11-0.59) K/uL Immature Gran # (Auto) (0.01-0.20) K/uL Sodium (136-145) mmol/L POC Potassium 5.3 H (3.3-5.0) mmol/L Potassium (3.5-5.1) mmol/L POC Chloride 100 L (101-112) mmol/L POC Total CO2 22 L (24-31) mmol/L POC BUN 6 L (7-18) mg/dl BUN/Creatinine Ratio (10-20) Glucose (70-99(Fasting)) mg/dl POC Glucose (other) 118 H (70-99) mg/dl Lactate 2.2 H* (0.4-2.0) mmol/L ALT (7-52) U/L Globulin (2.5-4.0) gm/dl Albumin/Globulin Ratio (0.9-2) Lipase (11-82) U/L Procalcitonin (0-0.5) ng/ml Diagnostic Findings Abdomen/Pelvis CT 11/30/22 13:19 CT SCAN OF THE ABDOMEN AND PELVIS WITH IV CONTRAST CLINICAL HISTORY: Left-sided abdominal pain. COMPARISON STUDY: Abdominal CT dated 07/20/2021. TECHNIQUE: Following the IV administration of 113 cc of Optiray 320, CT scan of the abdomen and pelvis is performed from the lung bases to the proximal femora. Images are reviewed in the axial, sagittal, and coronal planes. IV contrast was administered without complication. A dose lowering technique was utilized adhering to the principles of ALARA. CT DOSE: 827.96 mGy.cm FINDINGS: Lung bases: The heart is normal in size and without pericardial effusion. There are moderate left and trace right pleural effusions with dependent atelectasis. Liver: The contrast-enhanced liver is normal in size, contour, and attenuation. There is no intrahepatic biliary ductal dilatation. The hepatic veins and portal veins are patent. Gallbladder: Unremarkable. Spleen: Normal in size and attenuation. Pancreas: Unremarkable. Adrenal glands: Unremarkable. Kidneys: The contrast enhanced kidneys are normal in size and without hydronephrosis. The kidneys enhance symmetrically. Abdominal vasculature: The abdominal aorta is normal in course and caliber noting mild to moderate atherosclerotic calcification. Bowel: There is postsurgical change from sigmoid resection with colocolonic david stomosis. There is mild diverticulosis of the remaining colon without CT evidence of acute diverticulitis. Liquid stool is noted in the right colon. No bowel obstruction is seen. The appendix is well-visualized and normal. Peritoneum and retroperitoneum: There is no intraperitoneal free air similarly the diaphragm. There is no abdominal ascites. There is a small fat-containing umbilical hernia. There is a gas and fluid containing fistulous tract which originates at the sigmoid anastomosis. This extends approximately 20 cm superiorly into the left retroperitoneal space, anterior to psoas muscle and region the level of the lower pole of the left kidney as seen on axial image #220. There is surrounding inflammation and fluid, and the largest loculation is seen at the level of the pelvic inlet on image #296. This measures 3.6 x 4.7 cm in axial dimension. A focus of retroperitoneal free air is seen anterior to left kidney on axial image #155. The fistula also closely approximates the vagina. Lymphadenopathy: None. Pelvic viscera: The bladder is decompressed and could not be assessed. The uterus is surgically absent. No adnexal lesion is seen. Skeletal structures: The skeletal structures are osteopenic. There are bilateral pars defects at L5 with advanced disc space narrowing and 11 mm of anterolisthesis at L5-S1. Mild spondylotic changes seen throughout the remainder of the lumbar spine. No lytic or blastic lesions are seen. IMPRESSION: 1. There is postsurgical change from sigmoid colon resection with colocolonic anastomosis. 2. 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 This contains complex gas and fluid with surrounding inflammation. This likely represents colonic contents/infection. Surgical evaluation is advised. 3. There are tiny foci of left sided retroperitoneal free air. 4. The fistula also closely approximates the vagina. A concurrent colovaginal fistula is not excluded. 5. There is mild diverticulosis of the remaining colon without CT evidence of acute diverticulitis. 6. Left larger than right pleural effusions with dependent atelectasis. 7. Additional findings as above. ACT 112: Negative or not required by law. Electronically signed by: Joshua Bar M.D. 11/30/2022 3:29 PM Chest CTA 11/30/22 13:21 CT ANGIOGRAPHY OF THE CHEST, PULMONARY EMBOLUS PROTOCOL CLINICAL HISTORY: Left upper abd pain, shortness of breath COMPARISON STUDY: Chest CT August 14, 2022. TECHNIQUE: Following IV administration of 113 mL of Optiray, helical axial images of the chest were obtained utilizing the pulmonary embolus protocol. Maximal intensity projections and sagittal and coronal reformats were viewed on an independent 3D workstation. IV contrast was administered without complication. Automated exposure control was utilized for the study. A dose lowering technique was utilized adhering to the principles of ALARA. FINDINGS: No pulmonary emboli are identified. There is no thoracic aortic dissection. The size of the heart is normal. There is no pericardial effusion. A moderate left pleural effusion has developed since chest CT of August 14, 2022. There is a trace right pleural effusion. There is no pneumothorax. Subpleural opacities favor atelectasis. Linear opacities reflect atelectasis. A 4 mm subpleural right lower lobe nodule on image 78 of 231 is unchanged since chest CT of November 03, 2017. This is benign. Upper lobe predominant paraseptal emp hysema is present. There is no consolidation to suggest pneumonia. The abdomen and pelvis CT will be reported separately. There may be mild pulmonary vascular congestion. IMPRESSION: 1. No pulmonary emboli identified. 2. Interval development of moderate left and trace right pleural effusions. Pulmonary vascular congestion. 3. Upper lobe predominant paraseptal emphysema. ACT 112: Negative or not required by law. Electronically signed by: Keenan Ashford M.D. 11/30/2022 3:35 PM ECG Additional Comments: Normal sinus rhythm Voltage criteria for left ventricular hypertrophy Abnormal ECG When compared with ECG of 14-AUG-2022 11:10, QRS axis Shifted right Confirmed by Eliceo Cox ([id number]) on 11/30/2022 3:16:07 PM Code Status & VTE Plan Code Status Full code VTE Prophylaxis Plan VTE Prophylaxis will be ordered: Yes Supervising Physician Co-Signing Physician Notes Patient seen and examined, chart reviewed, case discussed with Jm Bernal PA-C and I agree with the assessment and plan as above except as otherwise noted Labs and images reviewed 57-year-old female with past medical history of lipidemia, GERD, ischemic colitis, who 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 CT shows contained abscess/perforation. Patient should be managed where IR/colorectal surgery services are available . Patient is excepted at [facility] but bed is not available for 24 hours. General surgery was consulted and case was reviewed, surgical intervention is not required acutely at this time recommend admission on antibiotics and okay for conservative care while pending transfer to [facility]. Patient seen at the bedside and i reports she was having pain prior to being seen in the ER, this is improved but not completely resolved at time of bedside assessment. Breathing is unlabored, lungs are clear, heart rate is regular. Her abdomen is soft and without guarding/rigidity. And denies fever/chills/[place] pain/chest pain/chest pressure. Continue Zosyn/vancomycin. Potassium repletion as noted. Agree with assessment and plan above PG Care Time/CCT Total # of Minutes Spent Total Time Spent with Patient: Total time spent is greater than 50% in coordination of care (as documented) at patient's floor/unit and/or counseling patient: [place] [address] INT INP/OBS CARE 2/55MIN Patient Type Established Medical Decision Making Moderate Complexity Diagnoses Bowel perforation K63.1 Hyperkalemia E87.5 Hyperlipidemia E78.5 GERD (gastroesophageal reflux disease) K21.9 Lactate blood increase R79.89
[2022-11-30] MEDS ORDERED: ACETAMINOPHEN 1,000 MG/100 ML VIAL IV PRN (18:41)
[2022-11-30] MEDS ORDERED: ENOXAPARIN 0.5 MG/KG SQ SCH (19:30)
[2022-11-30] MEDS: HYDROmorphone INJ 0.5 MG/0.5 ML SYR IV PRN (19:46)
--- NOTE | 2022-11-30 19:50 | Surgery Consultation ---
Date of Consultation November 30, 2022 Assessment & Plan (1) Bowel perforation: I discussed with the treating emergency room physician as well as my attending physician Dr. Wilkerson of [facility] physician group general surgery. Due to the complex nature of patient's issue if she were to undergo emergency surgery at [facility] she would most likely require Oleksandr procedure with at least a temporary colostomy. The patient wishes to avoid this. We therefore recommend transfer to [facility] where colorectal specialty and interventional radiology services are readily available. The treating emergency room physician notes that the patient has been accepted to [facility] in [place] and we are currently awaiting bed availability. While we are awaiting bed availability we recommend proceeding in the following manner: Maintain n.p.o. status Continue IV fluid Antibiotics in form of Zosyn have been initiated and this should be continued. The patient has also received a dose of vancomycin in the emergency department. At the present time the patient is resting comfortably in bed and she is hemodynamically stable. We will continue to follow along while she is at [facility] Supervising Physician Co-Signing Physician Notes pnt discussed with OLIVER Sales, and ED physician. h/o colonoscopy with polypectomy in diverticulum with endoscopic clip, later developed small contained perforation, re scoped and endolooped. Treated with IV abx, CT repeat showed improvement. Was home on augmentin, returned due to pain. CT with showed large contained perforation/abscess. HDS, wbc 25. Recommend transfer for IR, and given complicated nature of issue and prolonged symptoms, may need colorectal surgery. Awaiting transfer, surgery will follow. 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 The patient has a fairly complex recent history relating to her current problem. Patient reports that she underwent a screening colonoscopy in August of this year where she was found to have a polyp and a colon diverticulum. Because of the complexity involved in removing this polyp the patient was referred to Dr. Garret Reynolds of [facility] gastroenterology and on 11/18/2022 he performed a repeat colonoscopy at [facility] and removal of this polyp. The patient was discharged home following his procedure but had to be admitted to [facility] from 11/20/2022 through 11/27/2022 secondary to worsening abdominal pain. At this time the patient was found to have a contained bowel perforation and she was treated in a conservative manner with bowel rest, antibiotics, and intravenous f luids. Patient was ultimately discharged home on oral Augmentin which she says she continues to take and has been compliant with she was consuming a solid diet at the time of discharge. Since that hospitalization the patient has had progressive abdominal pain. She notes that the pain is worse on the left side of her abdomen just under her rib cage and sometimes is present in her lower abdomen. She notes that the pain is improved with analgesics administered in the emergency department and also seems to be better if she lies still. She notes that the pain is worse with certain movements and was particularly worse in the car ride to the hospital today with her current presentation she denies any nausea or vomiting. She denies any fevers, shakes, or chills. She notes that she has been having bowel movements but they are somewhat loose. She specifically denies any hematochezia, bright blood per rectum, or melena. I did question the patient on her history and there is a questionable history of ischemic colitis dating back to 2015. Patient notes that since that time in 2015 she has had intermittent episodes of abdominal pain and has required hospitalization in 2019. She says each time she was hospitalized she was treated conservatively with bowel rest, antibiotics, and intravenous fluids. She notes that she has had some intermittent abdominal pain in between these episodes but self treated herself at home. She further relates that she feels that she does not have ischemic colitis but was rather having intermittent episodes of diverticulitis. I question the patient on her abdominal surgical history and she says that she has had a hysterectomy and a . She specifically told me she has never had a colon resection Today in the emergency department the patient had labs and imaging which I independently reviewed. A CT scan of the chest showed no evidence of pulmonary emboli. The patient did have a moderate left and a trace right pleural effusion. A CT scan of the abdomen pelvis was performed that showed postsurgical changes from a sigmoid colon resection with colocolonic anastomosis. Patient was noted to have a large retroperitoneal fistulous con nection which extended from the sigmoid anastomosis to a level near the left kidney. This collection contained complex gas and fluid with surrounding inflammation and was felt to likely represent colonic contents/infection. A tiny foci of left-sided retroperitoneal free air was noted the fistula noted above was noted to be in close proximity to the vagina and an underlying fistula to this area could not be excluded. There was no evidence of acute diverticulitis Labs included a CBC her white blood cell count was 25.9. Hemoglobin, hematocrit, were normal. Platelet count is 547,000. Chemistry profile showed sodium was 134 with a potassium of 5.3. BUN and creatinine were both within the normal range. Lactic acid level was nonelevated at 1.3. There is no significant elevation of LFTs other than a slight elevation of the ALT at 69. Lipase was elevated at 240. Procalcitonin level was 0.81. A COVID test is pending. At the time of my interview the patient was resting comfortably in bed. She was noted to be hemodynamically stable and was in no distress Allergies Allergy/AdvReac Type Severity Reaction Status Date / Time No Known Allergies Allergy Verified 11/30/22 17:49 Home Medications Medication Instructions Recorded Confirmed Type atorvastatin 40 mg tablet (Lipitor) 40 mg PO QAM 07/30/21 11/30/22 History estradiol 0.5 mg tablet 0.5 mg PO QAM 07/30/21 11/30/22 History pantoprazole 40 mg tablet,delayed 40 mg PO QAM 07/30/21 11/30/22 History release (Protonix) ondansetron HCl 8 mg tablet 8 mg PO Q8H PRN Nausea 05/05/22 11/30/22 History promethazine 12.5 mg tablet 12.5 mg PO Q6H PRN nausea and 05/05/22 11/30/22 Rx vomiting #12 tabs albuterol sulfate 90 mcg/actuation 2 inh inhalation Q4H PRN shortness 08/14/22 11/30/22 Rx aerosol inhaler of breath or wheezing #8.5 grams Bifidobacterium infantis 4 mg 4 mg PO 3XWK 09/01/22 11/30/22 History capsule (Align) [id number] ac 400 1 tab PO QAM 09/01/22 11/30/22 History mcg-calcium carb 500 mg-vit K1 20 mcg tablet (Women's 50 Plus Daily Formula) amoxicillin 875 mg-potassium 1 tab PO BID 11/30/22 11/30/22 History clavulanate 125 mg tablet famotidine 20 mg tablet 20 mg PO BID 11/30/22 11/30/22 History oxycodone 5 mg capsule 5 mg PO Q4H PRN Pain 11/30/22 11/30/22 History potassium chloride 10 mEq 10 meq PO DAILY 11/30/22 11/30/22 History tablet,extended release Patient History Medical History Cardiac murmur no stonemason; stress echo scanned in system from 2018; pt unaware of echo prior to History of COVID-19 04/29/22, home test, not hosp; fever for 36 hrs, flu-like symptoms>resolved. History of endometriosis History of ischemic colitis HLD (hyperlipidemia) Surgical History History of History of colonoscopy History of laparoscopy History of total abdominal hysterectomy and bilateral salpingo-oophorectomy History of wisdom tooth extraction Hx of bladder repair surgery bladder tacking S/P excision of lipoma (08/25/21) Left Lower Extremity Lipoma Excision, Upper Back Cyst Excision(Left) - Darius Perze, DO 08/25/2021 Family History Sister Breast cancer Mother Hypertension Other No family history of adverse response to anesthesia Social History Smoking Status: Former smoker Second Hand Exposure: Yes; Hx Alcohol Use: Yes Alcohol type: hard liquor Hx Substance Use: No Preferred Language: Welsh Communication Ability: Effective Station Mechanic Required: No Beliefs That Will Affect Care: None marital status: Current Living Situation: Spouse current occupational status: employed 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 How many Children do You have: 2 Feels Safe at Home: Yes during the past year weight has: remained stable Assistive Devices: Glasses Review of Systems Constitutional: no fever, no chills and no sweats Eyes: no eye pain Ear, Nose, Mouth, Throat: no hearing loss Respiratory: + pain on inspiration (Deep inspiration exacerbates abdominal pain); no cough and no dyspnea Cardiovascular: no chest pain Gastrointestinal: as per Subjective / HPI Genitourinary: no dysuria Musculoskeletal: no back pain Integumentary: no rash Neurologic: no localized weakness Physical Exam Constitutional: WD/WN, vitals as above Eyes: no conjunctival abnormality ENMT: Ears: no hearing impairment and no external ear abnormality Mouth: no oropharynx abnormality Oral mucosa is more Neck: trachea midline Respiratory: Breath sounds are decreased at bases and respiratory effort is limited by abdominal pain. No wheezing noted. Patient is not using accessory muscles to aid in respiration. Respirations are nonlabored Cardiovascular: Rate/Rhythm: regular rate and regular rhythm Vessels: dorsalis pedis pulses present and radial pulses present Gastrointestinal (Abdomen): Patient's abdomen is soft, nonrigid, and nondistended. I do not appreciate any masses. There is pain with palpation which appears to be greatest in the left upper quadrant of her abdomen. There is no rebound tenderness or guarding. The patient had a well-healed midline incision Musculoskeletal: No calf tenderness. No lower extremity edema. Feet are warm, nonmottled, and well-perfused Skin: no rashes Neurologic: moves all extremities Psychiatric: A+Ox3, euthymic affect Results & Data Vital Signs (Past 12 Hours) Vital Signs Temp Pulse Resp BP Pulse Ox O2 Del Method 11/30/22 19:00 81 116/62 93 Room Air 11/30/22 18:00 87 139/71 93 Room Air 11/30/22 17:30 79 122/56 L 92 Room Air 11/30/22 17:00 77 130/57 L 93 Room Air 11/30/22 16:19 79 135/86 93 Room Air 11/30/22 16:01 81 130/67 94 Room Air 11/30/22 16:00 83 11/30/22 13:11 36.4 C L 102 H 26 H 145/110 H 95 Room Air PG Care Time/CCT Total # of Minutes Spent Total Time Spent with Patient: Total time spent is greater than 50% in coordination of care (as documented) at patient's floor/unit and/or counseling patient: Coding Level of Care Code 20085 IN/OBS CONSULT LVL 5,80M Diagnoses Bowel perforation K63.1
[2022-11-30] MEDS: LACTATED RINGER'S 1,000 ML IV SCH (20:34)
[2022-11-30] MEDS: ENOXAPARIN INJ 40 MG/0.4 ML SYR SQ SCH (21:50)
[2022-11-30] MEDS: PIPERACILLIN/TAZOBACTAM 3.375 GM in DEXTROSE 5% 100 ML IV SCH (21:50)
[2022-12-01] MEDS: HYDROmorphone INJ 0.5 MG/0.5 ML SYR IV PRN ×5 (01:53→19:15)
[2022-12-01 05:36] LABS: Albumin Globulin Ratio 0.9 (0.9-2); Albumin Level 3.1 gm/dl (3.4-5.0); BUN Creatinine Ratio 10.1 (10-20); Bilirubin,Total 0.7 mg/dl (0.2-1.0); Calcium 8.4 mg/dl (8.6-10.3); Creatinine Clr Calc Pharmacy 80.3 ml/min; Est GFR (African American) 112.8 ml/min; Est GFR (Non-African American) 97.3 ml/min; Globulin 3.6 gm/dl (2.5-4.0); Magnesium 2.1 mg/dl (1.7-2.4); Potassium 4.2 mmol/L (3.5-5.1); Total Protein 6.7 gm/dl (6.0-8.3)
[2022-12-01 05:42] LABS: INR 1.1 (0.9-1.1); Prothrombin Time 12.1 Seconds (9.0-12.0)
[2022-12-01 06:12] LABS: Basophils # (auto) 0.08 K/uL (0-0.2); Basophils % (auto) 0.5 %; Eosinophils # (auto) 0.06 K/uL (0-0.50); Eosinophils % (auto) 0.4 %; Hematocrit (blood only) 35.8 % (37.0-47.0); Hemoglobin 12.2 g/dl (12.0-16.0); Immature Granulocytes # (auto) 0.15 K/uL (0.01-0.20); Lymphocytes # (auto) 1.72 K/uL (1.2-3.4); Mean Corpuscular Hemoglobin 29.8 pg (25.0-34.0); Mean Corpuscular Hgb Conc 34.1 g/dL (32.0-36.0); Mean Corpuscular Volume 87.3 fL (80.0-100.0); Mean Platelet Volume 9.3 fL (9.4-12.4); Monocytes # (auto) 1.28 K/uL (0.11-0.59); Monocytes % (auto) 8.2 %; Neutrophils # (auto) 12.32 K/uL (1.40-6.50); Neutrophils % (auto) 78.9 %; Platelet Count 426 K/uL (130-400); RDW Coefficient of Variation 13.3 % (11.5-14.5); RDW Standard Deviation 42.5 fL (36.4-46.3); White Blood Count 15.61 K/ul (4.8-10.8)
[2022-12-01] MEDS: PIPERACILLIN/TAZOBACTAM 3.375 GM in DEXTROSE 5% 100 ML IV SCH (06:36)
[2022-12-01] MEDS: LACTATED RINGER'S 1,000 ML IV SCH (06:38)
--- NOTE | 2022-12-01 08:08 | Hospitalist Progress Note ---
Date of Service December 01, 2022 Assessment & Plan (1) Bowel perforation: Plan: - Bowel perforation secondary to prior GI procedures, a complication of care -Patient was recently admitted from 11/20-11/27 at [facility] for contained bowel perforation after a sigmoid poly-resection by [facility] in [place] on 11/18 -Was discharged on 11/27 after conservative treatment, had progressive abdominal distention and pain -WBC count today 15.61, improved from 25.90 yesterday prior to initiation of antibiotics -Blood cultures collected on 11/30 without growth to date, continue to follow -CTA of the chest/abd/pelvis shows a large retroperitoneal fistulous which exte nds from the sigmoid anastomosis approximately 20 cm superiorly to the level of the left kidney as detailed above. This contains complex gas and fluid with surrounding inflammation (abscess vs. contained perforation) -ED staff spoke with [facility] who accepted the patient but will not have an open bed for 24-48 hours, General Surgery was consulted and will follow, no acute surgical intervention at this time, hemodynamically stable -Update given to Dr. Bañuelos today 12/01 -Will continue her on Vancomycin and Zosyn 4.5g q8h -NPO except meds, Light IV hydration with LR at 80 mL/hr, to complete 4/6 AM -Pain control with IV tylenol for mild pain and 1 mg IV Dilaudid q4h prn severe pain -BL SCD's and Sub-Q Lovenox for DVT PPX -Daily CBC/CMP (2) Hyperkalemia: Plan: -5.3> 4.2 with IV fluids, suspect due to volume contraction from acute illness -Daily monitoring (3) Hyperlipidemia: Plan: -Continue atorvastatin (4) GERD (gastroesophageal reflux disease): Plan: -40 mg IV Protonix daily while NPO (5) Lactate blood increase: Plan: -Initial lactate noted to be 2.2, improved to 1.3 on repeat Plan Has been accepted for discharge to [facility], awaiting bed Admission and Anticipated Discharge Date Admission Date: November 30, 2022 Subjective Patient without any acute events overnight. With continued abdominal pain relieved with as needed pain medications, no shortness of breath or chest pain, no nausea. Review of Systems Review of Systems: All systems reviewed & are unremarkable except as noted in Subjective Physical Exam Constitutional: WD/WN, vitals as above Respiratory: normal respiratory effort, lungs clear to auscultation Cardiovascular: RRR, no murmur, no edema Gastrointestinal (Abdomen): Abdomen soft, no acute abdomen, tender to palpation without rebound Skin: no rashes, warm and dry Psychiatric: A+Ox3, euthymic affect Results & Data Results & Data Vital Signs (Past 12 Hours) Vital Signs Pulse Pulse Resp BP Pulse Ox Pulse Ox O2 Del Method 12/01/22 07:18 78 12/01/22 06:23 88 20 155/76 H 98 Room Air 12/01/22 03:00 84 16 118/64 98 Room Air 12/01/22 02:14 95 11/30/22 23:16 75 11/30/22 23:06 69 131/75 92 Room Air 11/30/22 22:41 Room Air 11/30/22 22:30 71 93 Room Air O2 Del Method 12/01/22 07:18 12/01/22 06:23 12/01/22 03:00 12/01/22 02:14 Room Air 11/30/22 23:16 11/30/22 23:06 11/30/22 22:41 11/30/22 22:30 PG Care Time/CCT Total # of Minutes Spent Total Time Spent with Patient: Total time spent is greater than 50% in coordination of care (as documented) at patient's floor/unit and/or counseling patient: Coding Level of Care Code 67935 SUB INP/OBS CARE 3/50MIN Diagnoses Bowel perforation K63.1 Hyperkalemia E87.5 Hyperlipidemia E78.5 GERD (gastroesophageal reflux disease) K21.9 Lactate blood increase R79.89
[2022-12-01] MEDS: VANCOMYCIN HCL 1,000 MG in SODIUM CHLORIDE 0.9% 250 ML IV SCH ×2 (08:18→20:37)
--- NOTE | 2022-12-01 10:39 | Surgery Progress Note ---
Date of Service December 01, 2022 Assessment & Plan (1) Abscess of sigmoid colon: Plan: contained perf vs. abscess. awaiting transfer to [facility] for IR/colorectal eval continue abx npo awaiting trx surgery will follow Admission and Anticipated Discharge Date Admission Date: November 30, 2022 Subjective admitted awaiting transfer for pericolic abscess with fistula following polypectomy 2 weeks ago. Feeling a little better. Physical Exam Constitutional: WD/WN, vitals as above Gastrointestinal (Abdomen): Percussion/Palpation: + abdomen tender (llq) and abdomen soft; no guarding and abdomen not rigid Results & Data Vital Signs (Past 12 Hours) Vital Signs Pulse Pulse Resp BP Pulse Ox Pulse Ox O2 Del Method 12/01/22 10:29 71 17 121/76 12/01/22 08:19 81 16 147/75 H 98 Room Air 12/01/22 07:18 78 12/01/22 06:23 88 20 155/76 H 98 Room Air 12/01/22 03:00 84 16 118/64 98 Room Air 12/01/22 02:14 95 11/30/22 23:16 75 11/30/22 23:06 69 131/75 92 Room Air 11/30/22 22:41 Room Air O2 Del Method 12/01/22 10:29 12/01/22 08:19 12/01/22 07:18 12/01/22 06:23 12/01/22 03:00 12/01/22 02:14 Room Air 11/30/22 23:16 11/30/22 23:06 11/30/22 22:41 Laboratory Results Laboratory Results - last 24 hr 11/30/22 11/30/22 11/30/22 14:44 14:46 14:46 WBC 25.90 H RBC 4.81 Hgb 14.6 POC Hgb Hct 42.3 POC Hct MCV 87.9 MCH 30.4 MCHC 34.5 RDW Std Deviation 42.9 RDW Coeff of Orly 13.2 Plt Count 547 H MPV 9.1 L Immature Gran % (Auto) 1.1 Neut % (Auto) 90.0 Lymph % (Auto) 4.0 Perkins % (Auto) 4.6 Eos % (Auto) 0.0 Baso % (Auto) 0.3 Neut # (Auto) 23.33 H Lymph # (Auto) 1.03 L Perkins # (Auto) 1.18 H Eos # (Auto) 0.00 Baso # (Auto) 0.07 Immature Gran # (Auto) 0.29 H PT INR POC Sodium Sodium 134 L POC Potassium Potassium 5.3 H POC Chloride Chloride 101 Carbon Dioxide 23 POC Total CO2 Anion Gap 10 POC Anion Gap POC BUN BUN 7 Creatinine 0.82 POC Creatinine Est Cr Clr Drug Dosing 67.5 Est GFR ( Amer) 92.7 Est GFR (Non-Af Amer) 80.0 BUN/Creatinine Ratio 8.5 L Glucose 112 H POC Glucose (other) Lactate Calcium 9.3 POC Ioniz Calcium Tasha Magnesium Total Bilirubin 1.0 AST 37 ALT 69 H Alkaline Phosphatase 83 Troponin I High Sens 7.2 Total Protein 8.3 Albumin 3.8 Globulin 4.5 H Albumin/Globulin Ratio 0.8 L Lipase 240 H Procalcitonin 0.81 H SARS-CoV-2, RNA, NAAT 11/30/22 11/30/22 11/30/22 14:51 16:39 18:55 WBC RBC Hgb POC Hgb 14.3 Hct POC Hct 42 MCV MCH MCHC RDW Std Deviation RDW Coeff of Orly Plt Count MPV Immature Gran % (Auto) Neut % (Auto) Lymph % (Auto) Perkins % (Auto) Eos % (Auto) Baso % (Auto) Neut # (Auto) Lymph # (Auto) Perkins # (Auto) Eos # (Auto) Baso # (Auto) Immature Gran # (Auto) PT INR POC Sodium 135 Sodium POC Potassium 5.3 H Potassium POC Chloride 100 L Chloride Carbon Dioxide POC Total CO2 22 L Anion Gap POC Anion Gap 19.0 POC BUN 6 L BUN Creatinine POC Creatinine 0.7 Est Cr Clr Drug Dosing Est GFR ( Amer) Est GFR (Non-Af Amer) BUN/Creatinine Ratio Glucose POC Glucose (other) 118 H Lactate 2.2 H* 1.3 Calcium POC Ioniz Calcium Tasha 1.19 Magnesium Total Bilirubin AST ALT Alkaline Phosphatase Troponin I High Sens Total Protein Albumin Globulin Albumin/Globulin Ratio Lipase Procalcitonin SARS-CoV-2, RNA, NAAT 11/30/22 11/30/22 12/01/22 21:04 Unknown 04:39 WBC 15.61 H D RBC 4.10 L Hgb 12.2 POC Hgb Hct 35.8 L POC Hct MCV 87.3 MCH 29.8 MCHC 34.1 RDW Std Deviation 42.5 RDW Coeff of Orly 13.3 Plt Count 426 H MPV 9.3 L Immature Gran % (Auto) 1.0 Neut % (Auto) 78.9 Lymph % (Auto) 11.0 Perkins % (Auto) 8.2 Eos % (Auto) 0.4 Baso % (Auto) 0.5 Neut # (Auto) 12.32 H Lymph # (Auto) 1.72 Perkins # (Auto) 1.28 H Eos # (Auto) 0.06 Baso # (Auto) 0.08 Immature Gran # (Auto) 0.15 PT INR POC Sodium Sodium POC Potassium Potassium 4.3 POC Chloride Chloride Carbon Dioxide POC Total CO2 Anion Gap POC Anion Gap POC BUN BUN Creatinine POC Creatinine Est Cr Clr Drug Dosing Est GFR ( Amer) Est GFR (Non-Af Amer) BUN/Creatinine Ratio Glucose POC Glucose (other) Lactate Calcium POC Ioniz Calcium Tasha Magnesium Total Bilirubin AST ALT Alkaline Phosphatase Troponin I High Sens Total Protein Albumin Globulin Albumin/Globulin Ratio Lipase Procalcitonin SARS-CoV-2, RNA, NAAT NEGATIVE 12/01/22 12/01/22 04:39 04:39 WBC RBC Hgb POC Hgb Hct POC Hct MCV MCH MCHC RDW Std Deviation RDW Coeff of Orly Plt Count MPV Immature Gran % (Auto) Neut % (Auto) Lymph % (Auto) Perkins % (Auto) Eos % (Auto) Baso % (Auto) Neut # (Auto) Lymph # (Auto) Perkins # (Auto) Eos # (Auto) Baso # (Auto) Immature Gran # (Auto) PT 12.1 H INR 1.1 POC Sodium Sodium 136 POC Potassium Potassium 4.2 POC Chloride Chloride 103 Carbon Dioxide 25 POC Total CO2 Anion Gap 8 POC Anion Gap POC BUN BUN 7 Creatinine 0.69 POC Creatinine Est Cr Clr Drug Dosing 80.3 Est GFR ( Amer) 112.8 Est GFR (Non-Af Amer) 97.3 BUN/Creatinine Ratio 10.1 Glucose 87 POC Glucose (other) Lactate Calcium 8.4 L POC Ioniz Calcium Tasha Magnesium 2.1 Total Bilirubin 0.7 AST 23 ALT 49 Alkaline Phosphatase 66 Troponin I High Sens Total Protein 6.7 Albumin 3.1 L Globulin 3.6 Albumin/Globulin Ratio 0.9 Lipase Procalcitonin SARS-CoV-2, RNA, NAAT Diagnostic Findings CT SCAN OF THE ABDOMEN AND PELVIS WITH IV CONTRAST CLINICAL HISTORY: Left-sided abdominal pain. COMPARISON STUDY: Abdominal CT dated 07/20/2021. TECHNIQUE: Following the IV administration of 113 cc of Optiray 320, CT scan of the abdomen and pelvis is performed from the lung bases to the proximal femora. Images are reviewed in the axial, sagittal, and coronal planes. IV contrast was administered without complication. A dose lowering technique was utilized adhering to the principles of ALARA. CT DOSE: 827.96 mGy.cm FINDINGS: Lung bases: The heart is normal in size and without pericardial effusion. There are moderate left and trace right pleural effusions with dependent atelectasis. Liver: The contrast-enhanced liver is normal in size, contour, and attenuation. There is no intrahepatic biliary ductal dilatation. The hepatic veins and portal veins are patent. Gallbladder: Unremarkable. Spleen: Normal in size and attenuation. Pancreas: Unremarkable. Adrenal glands: Unremarkable. Kidneys: The contrast enhanced kidneys are normal in size and without hydronephrosis. The kidneys enhance symmetrically. Abdominal vasculature: The abdominal aorta is normal in course and caliber noting mild to moderate atherosclerotic calcification. Bowel: There is postsurgical change from sigmoid resection with colocolonic anastomosis. There is mild diverticulosis of the remaining colon without CT evidence of acute diverticulitis. Liquid stool is noted in the right colon. No bowel obstruction is seen. The appendix is well-visualized and normal. Peritoneum and retroperitoneum: There is no intraperitoneal free air similarly the diaphragm. There is no abdominal ascites. There is a small fat-containing umbilical hernia. There is a gas and fluid containing fistulous tract which originates at the sigmoid anastomosis. This extends approximately 20 cm superiorly into the left retroperitoneal space, anterior to psoas muscle and region the level of the lower pole of the left kidney as seen on axial image #220. There is surrounding inflammation and fluid, and the largest loculation is seen at the level of the pelvic inlet on image #296. This measures 3.6 x 4.7 cm in axial dimension. A focus of retroperitoneal free air is seen anterior to left kidney on axial image #155. The fistula also closely approximates the vagina. Lymphadenopathy: None. Pelvic viscera: The bladder is decompressed and could not be assessed. The uterus is surgically absent. No adnexal lesion is seen. Skeletal structures: The skeletal structures are osteopenic. There are bilateral pars defects at L5 with advanced disc space narrowing and 11 mm of anterolisthesis at L5-S1. Mild spondylotic changes seen throughout the remainder of the lumbar spine. No lytic or blastic lesions are seen. IMPRESSION: 1. There is postsurgical change from sigmoid colon resection with colocolonic anastomosis. 2. 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 This contains complex gas and fluid with surrounding inflammation. This likely represents colonic contents/infection. Surgical evaluation is advised. 3. There are tiny foci of left sided retroperitoneal free air. 4. The fistula also closely approximates the vagina. A concurrent colovaginal fistula is not excluded. 5. There is mild diverticulosis of the remaining colon without CT evidence of acute diverticulitis. 6. Left larger than right pleural effusions with dependent atelectasis. 7. Additional findings as above. PG Care Time/CCT Total # of Minutes Spent Total Time Spent with Patient: Total time spent is greater than 50% in coordination of care (as documented) at patient's floor/unit and/or counseling patient: Coding Level of Care Code 53280 SUB INP/OBS CARE 25MIN Diagnoses Abscess of sigmoid colon K63.0
[2022-12-01] MEDS ORDERED: PANTOprazole 40 MG in SYRINGE 0 ML IV SCH (11:00)
--- NOTE | 2022-12-01 11:20 | Pharmacy Report ---
Pharmacy PK ABX Note - Date of Service December 01, 2022 - Assessment and Plan Assessment 57 year old F receiving vancomycin and zosyn for treatment of abscess of sigmoid colon. Patient awaiting transfer for IR/ colorectal eval. Vancomycin is currently ordered empirically with a 48 hour duration (ending the evening of 12/02). Would consider increasing zosyn dosing. Day # 2 of antimicrobial therapy. Plan Vancomycin * Loading dose: 1750 mg IV x 1 (administered last evening) * Maintenance dose: 1000 mg IV every 12 hours started this morning * Regimen is predicted to achieve target AUC/JENNYFER of 400-600 mg/L.hr * Random level ordered for: if therapy continues/patient still here tomorrow would plan on a mid day random level. Pharmacy will continue to follow and will adjust dose/frequency as necessary. Thank you. Pharmacy has transitioned to AUC monitoring for vancomycin. AUC/JENNYFER is the preferred PK/PD target and is associated with decreased risk of nephrotoxicity compared to traditional trough targets.
[2022-12-01] MEDS: PIPERACILLIN/TAZOBACTAM 4.5 GM CI (over 4 hours) IV SCH ×2 (13:37→22:02)
[2022-12-01] MEDS ORDERED: LACTATED RINGER'S 1,000 ML IV SCH (18:15)
[2022-12-01] MEDS: ENOXAPARIN INJ 40 MG/0.4 ML SYR SQ SCH (22:02)
[2022-12-02] MEDS: HYDROmorphone INJ 0.5 MG/0.5 ML SYR IV PRN (00:44)
--- NOTE | 2022-12-09 16:35 | Discharge Summary ---
Discharge Summary Date of Service December 02, 2022 Admission HPI Per Admitting Provider Marilee is a 57 year old female with a PMH significant for ischemic colitis, hyperlipidemia, GERD who presented to the [facility] ED on 11/30/22 with a chief complaint of left rib/side pain. The patient was recently discharged from [facility] after In the ED the patient was found to be afebrile, hemodynamically stable, and stable on RA. Labs were remarkable for a leukocytosis of 25 with left shift of 23, stable hgb, thrombocytosis of 547, potassium of 5.3, lactate of 2.2, ALT of 69, lipase of 240, procal of 0.81. CTA of the chest was read as "1. No pulmonary emboli identified. 2. Interval development of moderate left and trace right pleural effusions. Pulmonary vascular congestion. 3. Upper lobe predominant paraseptal emphysema.". CTA of the abd/pelvis with IV contrast was read as "1. There is postsurgical change from sigmoid colon resection with colocolonic anastomosis. 2. 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 This contains complex gas and fluid with surrounding inflammation. This likely represents colonic contents/infection. Surgical evaluation is advised. 3. There are tiny foci of left sided retroperitoneal free air. 4. The fistula also closely approximates the vagina. A concurrent colovaginal fistula is not excluded. 5. There is mild diverticulosis of the remaining colon without CT evidence of acute diverticulitis. 6. Left larger than right pleural effusions with dependent atelectasis. 7. Additional findings as a eze.". The patient was initially given a dose of Zosyn, Vancomycin, 4 mg IV morphine, and a 500 mL NSS bolus. General Surgery was consulted and recommended transferred to a tertiary care facility. [facility] accepted the patient but they will not have an available bed for the next 24-48 hours. Surgery recommended medicine admission and they will follow until the patient is transferred. At the time of the exam the patient was resting in bed in no acute distress. She initially underwent a colonoscopy and sigmoid polypectomy at [facility] on 11/20. Over the next few days she developed progressive abd pain and abd distention. She was admitted to [facility] from 11/20-11/27 for a contained bowel perforation. She was treated conservatively with bowel rest and IV antibiotics. Per the discharge summary, the patient had serial CT scans during her admission which showed improvement and her diet was able to be advanced. She was discharged on 11/27 on Augmentin. Since 11/27 she has had progressive left upper abd/left chest pain. She had a bowel movement in the ED without blood or melena and has been passing gas since. She denies recent fever, chills, cough, nausea, vomiting, dysuria, hematuria, lower extremity swelling and recent trauma. I explained that we will admit her to our service with surgery following until she can be transferred to [facility]. She wishes to be a full code and for her to make medical decisions for her if she cannot make decisions herself. Transfer documentation was filled out by the ED staff and placed in the patient's chart Please refer to Dr. Canada's attestation for any changes to the treatment plan Principal Dx & Hospital Course #1 = Principal Diagnosis (1) Bowel perforation: -Patient was recently admitted from 11/20-11/27 at [facility] for contained bowel perforation after a sigmoid poly resection by [facility] in [place] on 11/18 -Was discharged on 11/27 after conservative treatment, had progressive abdominal distention and pain -CTA of the chest, abd, pelvis shows a large retroperitoneal fistulous which extends from the sigmoid anastomosis approximately 20 cm superiorly to the level of the left kidney as detailed above. This contains complex gas and fluid with surrounding inflammation. -Accepted by [facility] who accepted the patient and fortunately able to find a bed relatively quickly -General Surgery was consulted in event of emergent surgical need -Continued on Vancomycin and Zosyn until transfer -NPO except meds, Light IV hydration with LR at 80 mL/hr x 2 bags -Pain control with scheduled tylenol with Dilaudid as needed for breakthrough pain (2) Hyperkalemia: -Noted to be 5.3 in the ED, no acute ECG changes (3) Hyperlipidemia: -Held while NPO (4) GERD (gastroesophageal reflux disease): -40 mg IV Protonix daily while NPO (5) Lactate blood increase: -Initial lactate noted to be 2.2, cleared to 1.3 on repeat, continued IV fluids while admitted Discharge Exam Constitutional WD/WN, vitals as above Respiratory normal respiratory effort, lungs clear to auscultation Cardiovascular RRR, no murmur, no edema Gastrointestinal (Abdomen) abdomen soft, moderately tender Updated Medication List Medication Instructions Recorded Confirmed Type atorvastatin 40 mg tablet (Lipitor) 40 mg PO QAM 07/30/21 11/30/22 History estradiol 0.5 mg tablet 0.5 mg PO QAM 07/30/21 11/30/22 History pantoprazole 40 mg tablet,delayed 40 mg PO QAM 07/30/21 11/30/22 History release (Protonix) ondansetron HCl 8 mg tablet 8 mg PO Q8H PRN Nausea 05/05/22 11/30/22 History promethazine 12.5 mg tablet 12.5 mg PO Q6H PRN nausea and 05/05/22 11/30/22 Rx vomiting #12 tabs albuterol sulfate 90 mcg/actuation 2 inh inhalation Q4H PRN shortness 08/14/22 11/30/22 Rx aerosol inhaler of breath or wheezing #8.5 grams Bifidobacterium infantis 4 mg 4 mg PO 3XWK 09/01/22 11/30/22 History capsule (Align) hojbugzp-lsk-frmbr ac 400 1 tab PO QAM 09/01/22 11/30/22 History mcg-calcium carb 500 mg-vit K1 20 mcg tablet (Women's 50 Plus Daily Formula) amoxicillin 875 mg-potassium 1 tab PO BID 11/30/22 11/30/22 History clavulanate 125 mg tablet famotidine 20 mg tablet 20 mg PO BID 11/30/22 11/30/22 History oxycodone 5 mg capsule 5 mg PO Q4H PRN Pain 11/30/22 11/30/22 History potassium chloride 10 mEq 10 meq PO DAILY 11/30/22 11/30/22 History tablet,extended release Hospital Stay Data Consultations 11/30/22 17:56 ED Decision to Admit Stat 11/30/22 18:21 Consult General Surgery Routine Diagnostic Imagining Performed 11/30/22 13:19 CT Abd and Pelvis [CT abd pelvis IV con only] Stat 11/30/22 13:21 CT angio chest PE protocol Stat Discharge Instructions Given to Patient (Per Discharging Provider) Bowel perforation: -Patient was recently admitted from 11/20-11/27 at [facility] for contained bowel perforation after a sigmoid poly resection by [facility] in [place] on 11/18 -Was discharged on 11/27 after conservative treatment, had progressive abdominal distention and pain -CTA of the chest, abd, pelvis shows a large retroperitoneal fistulous which extends from the sigmoid anastomosis approximately 20 cm superiorly to the level of the left kidney as detailed above. This contains complex gas and fluid with surrounding inflammation. >ED staff spoke with [facility] who accepted the patient but will not have an open bed for 24-48 hours, General Surgery was consulted and will follow, no acute surgical intervention at this time -Will continue her on Vancomycin and Zosyn for now -NPO except meds, Light IV hydration with LR at 80 mL/hr x 2 bags for now -Will touch base with Surgery ZENIA at 7 pm to see if they are ok with clears at this time -Pain control with IV tylenol for mild pain and 0.5 mg IV Dilaudid q4h prn severe pain -Monitor on tele -BL SCD's and Sub-Q Lovenox for DVT PPX -AM CBC, CMP, Mag, PT/INR Hyperkalemia: -Noted to be 5.3 in the ED, no acute ECG changes -Will repeat another potassium level this evening to ensure it's trending down -Hold oral potassium for now -AM potassium level Hyperlipidemia: -Continue atorvastatin GERD (gastroesophageal reflux disease): -40 mg IV Protonix daily while NPO Elevated lactate -Initial lactate noted to be 2.2, cleared to 1.3 on repeat, continue IV fluids Total Time Total Time Spent Total Time Spent (In Minutes): 35 min Coding Level of Care Code 06323 INP/OBS DISCH >30 MIN Diagnoses Bowel perforation K63.1 Hyperkalemia E87.5 Hyperlipidemia E78.5 GERD (gastroesophageal reflux disease) K21.9 Lactate blood increase R79.89
== END 2022-12-02 03:05 | disposition short-term general hospital (02) | DRG 919 ==
LOC: ED 12:54 → SUATTDRO 18:21 → EDINP 18:21 → 2S 21:52

== ENCOUNTER 2024-11-21 06:03 | Observation (INO) ==
--- NOTE | 2024-11-09 11:23 | Anesthesiology Consultation ---
Date of Service November 09, 2024 Assessment & Plan (1) Encounter for pre-operative examination: Chart Review Chart Review: Acceptable Risk for Surgery and Patient NOT seen in Pre Admission Testing Consults Requested none History Surgery Operation Date: 11/21/24 07:30 Proposed Procedures p Bilateral Breast Reduction - Jaimie Pham MD Height/Weight Height: 5 ft 1 in Weight: 68.039 kg Allergies Allergy/AdvReac Type Severity Reaction Status Date / Time No Known Allergies Allergy Verified 11/09/24 07:31 Medications Home Medications Medication Instructions Recorded Confirmed Last Taken atorvastatin 40 mg tablet (Lipitor) 40 mg PO QAM 07/30/21 11/09/24 11/30/22 estradiol 0.5 mg tablet 0.5 mg PO QAM 07/30/21 11/09/24 09/08/22 pantoprazole 40 mg tablet,delayed 40 mg PO QAM 07/30/21 11/09/24 11/30/22 release (Protonix) Bifidobacterium infantis 4 mg 4 mg PO 3XWK 09/01/22 11/09/24 09/07/22 capsule (Align (B.infantis)) Past Medical History Medical History GERD (gastroesophageal reflux disease) Hiatal hernia History of COVID-19 04/29/22, home test, not hosp; fever for 36 hrs, flu-like symptoms>resolved. History of endometriosis History of ischemic colitis HLD (hyperlipidemia) Cardiac murmur no acidizer water well; stress echo scanned in system from 2018; pt unaware of echo prior to Past Family History Family History Sister Breast cancer Mother Hypertension Other No family history of adverse response to anesthesia Past Surgical History Surgical History Hx of bladder repair surgery bladder tacking S/P excision of lipoma (08/25/21) Left Lower Extremity Lipoma Excision, Upper Back Cyst Excision(Left) - Darius Perez DO 08/25/2021 History of History of wisdom tooth extraction History of laparoscopy History of total abdominal hysterectomy and bilateral salpingo-oophorectomy History of colonoscopy (2022) 2022, got bowel perforation during this scope, spent "a lot of time in hospitals following and no sx required" Social History Smoking Status: Former smoker Do You Dip or Chew Tobacco: No Smoking End Date: 18 years ago Hx Alcohol Use: No Alcohol type: hard liquor alcohol intake frequency: other Hx Substance Use: Yes substance use type: former substance user and marijuana Last Used Substance Other:: remote hx Testing Electrocardiogram Date: 10/31/24 Findings: + NSR @ (50) Left anterior fascicular block Nonspecific T wave abnormality
[2024-11-21] MEDS: LACTATED RINGER'S 1,000 ML IV SCH (06:33)
--- NOTE | 2024-11-21 06:50 | History & Physical Bridge Note ---
Date of Service November 21, 2024 History & Physical Bridge Note I have examined the patient, reviewed the History & Physical and in the interval since the performance of the History & Physical I have noted the following changes of clinical significance: planning to stay overnight
[2024-11-21] MEDS ORDERED: ONDANSETRON INJ 2 MG/ML 2 ML VIAL ONE ×2 (07:17→11:12)
[2024-11-21] MEDS ORDERED: GLYCOPYRROLATE 0.2 MG/ML VIAL ONE (07:17)
[2024-11-21] MEDS ORDERED: LIDOCAINE 2% 2 ML VIAL/AMP(20MG/ML) INFIL ONE (07:17)
[2024-11-21] MEDS ORDERED: NEOSTIGMINE METHYLSULFATE 1 MG/ML 10ML VIAL ONE (07:17)
[2024-11-21] MEDS ORDERED: DEXAMETHASONE SOD INJ 4 MG/ML VIAL ONE (07:17)
[2024-11-21] MEDS ORDERED: ROCURONIUM BROMIDE 10 MG/ML 5 ML VIAL IV ONE (07:17)
[2024-11-21] MEDS ORDERED: PROPOFOL IV EMULSION 10 MG/ML 20 ML VIAL IV ONE (07:17)
[2024-11-21] MEDS ORDERED: fentaNYL citrate PF 100 MCG/2 ML VIAL ONE (07:19)
[2024-11-21] MEDS ORDERED: MIDAZOLAM HCL 1 MG/ML 2ML VIAL ONE (07:19)
[2024-11-21] MEDS ORDERED: ePHEDrine sulfate 50 MG/ML AMP IV PRN (07:29)
[2024-11-21] MEDS ORDERED: ATROPINE SULFATE 0.1 MG/ML 10ML SYR IV PRN (07:29)
[2024-11-21] MEDS ORDERED: PROMETHAZINE HCL 6.25 MG in SODIUM CHLORIDE 0.9% 50 ML IV PRN (07:29)
[2024-11-21] MEDS ORDERED: DROPERIDOL 5 MG/2 ML VIAL IV PRN (07:29)
[2024-11-21] MEDS: TRANEXAMIC ACID 1,000 MG **IV Pre-op IV SCH (07:30)
[2024-11-21] MEDS: ceFAZolin 2000MG 2,000 MG/15 ML SYR IV SCH ×2 (07:35→15:01)
[2024-11-21] MEDS ORDERED: HYDROmorphone INJ 1 MG/ML SYRINGE ONE (07:53)
[2024-11-21] MEDS: BUPIVACAINE 0.25% PF 30 ML VIAL ONE (10:24)
[2024-11-21] MEDS: LIDOCAINE 1%/EPINEPHRINE 1:100,000 50 ML VIAL ONE (10:24)
[2024-11-21] MEDS: TRANEXAMIC ACID 1,000 MG **IV Intra-op IV SCH (10:42)
[2024-11-21] MEDS ORDERED: SUGAMMADEX SODIUM 200 MG/2 ML VIAL IV ONE (10:45)
--- NOTE | 2024-11-21 11:18 | Post Operative Brief Note ---
PG Immediate Post Op with CF Date of Surgery November 21, 2024 Pre & Post Diagnosis Operation Date: 11/21/24 07:30 Pre-Op Diagnosis: Symptomatic Macromastia Post-Op Diagnosis: Symptomatic Macromastia I identified the patient and participated in the time-out.: Yes Procedure Operation Date: 11/21/24 07:30 Actual Procedures p Bilateral Breast Reduction(Bilateral) - Jaimie Pham MD Surgeon Jaimie Pham MD Senior Functional Analyst Pascale Blake PA-C Estimated Blood Loss 15 Findings Consistent with Post-Op Diagnosis Specimens Specimen Description: A) Left Breast Tissue 638g B) Right Breast Tissue 774g Drains Jayjay-Martino Drain
--- NOTE | 2024-11-21 11:20 | Operative Report ---
PG Post Operative Report Pre & Post Diagnosis Operation Date: 11/21/24 07:30 Pre-Op Diagnosis: Symptomatic Macromastia Post-Op Diagnosis: Symptomatic Macromastia I identified the patient and participated in the time-out.: Yes Procedure Operation Date: 11/21/24 07:30 Actual Procedures p Bilateral Breast Reduction(Bilateral) - Jaimie Pham MD Surgeon Jaimie Pham MD Plan Nurse Pascale Blake PA-C Estimated Blood Loss 15 Findings Consistent with Post-Op Diagnosis Specimens left breast 638 grams, right breast 774 grams Drains JPx2 Anesthesia Type General Complications none Indications bilateral shoulder pain, back pain secondary to macromastia Description of Procedure The risks, benefits, and alternatives of the procedure were explained to the patient who agreed and signed consent. She was identified and marked in the preoperative holding area. She was brought to the operating room where she was positioned supine and placed under general anesthesia without incident. Surgical site was prepped and draped sterilely. A time-out procedure was performed. I began with the left side. Markings were reassessed and a 7 cm pedicle was marked. 1% lidocaine with epinephrine was used to anesthetize the planned incisions. A 38 mm cookie cutter was used to circumscribe the nipple-areolar complex. The previously marked 7 cm pedicle was incised using a 15 blade scalpel and deepithelialized. I began with the medial dissection of the pedicle using electrocautery. Cautery was used to incise through dermis and breast parenchyma down to the chest wall, taking care not to undermine the pedicle during dissection. A similar procedure was undertaken on the lateral aspect of the pedicle again taking care not to undermine. Lastly, the pedicle was dissected out superiorly using electrocautery and this was carried down to the chest wall as well. I then began with excision of the medial breast tissue followed by lateral aspect of the breast tissue and surrounding keyhole incision. A 15 blade scalpel was used to make the inframammary fold incision and electrocautery was used to deepen the incision through dermis and breast parenchyma. Dissection was then carried superiorly to the level of the superior incision. Superior incision was then incised using a 15 blade scalpel and again dissected using electrocautery. This was undertaken laterally and then around the keyhole portion of the incision. Care was taken to leave some fat on the lateral pectoralis fascia in order to protect the T4 intercostal nerve. Hemostasis was achieved with electrocautery. The specimen was passed off in its entirety for weighing. Additional resection was undertaken from the superior flap in order to facilitate closure of the breast and to provide the best shape. The total resection weight of the left breast was 638 grams. The wound was irrigated with saline and hemostasis was achieved with electrocautery. 0.25% Marcaine plain was used to anesthetize the incisions as well as the pectoralis fascia. A 15 Palestinian Alejo drain was brought out through a separate stab incision. The nipple-areolar complex was brought into the keyhole using 2-0 Vicryl deep dermal suture. The wound was closed first in a lateral to mid breast direction and then medial to mid breast direction using 2-0 Vicryl deep dermal sutures. Vertical limb was also approximated using 2-0 Vicryl deep dermals and the nipple-areolar complex was inset using 2-0 Vicryl deep dermal sutures. Next, the superficial dermal layer was closed using 2-0 PDO running Quill suture along the inframammary fold and 3-0 PDS interrupted dermal sutures along the vertical limb and nipple- areolar complex. Lastly 3-0 Monocryl running subcuticular suture was placed. A similar procedure was undertaken on the larger right side with maximal excision weight of 774 grams. Breasts were symmetric and nipple-areolar complexes were viable bilaterally following wound closure. Sylke was applied along the inframammary fold and vertical limb and Dermabond was placed around the nipple-areolar complex. Dry dressings and a surgical bra were placed. The patient was awakened and transferred to recovery room in satisfactory condition. Pascale Blake PA-C was present and scrubbed throughout the procedure and was instrumental in providing retraction during dissection of the pedicle and assisting in wound closure. I attest to the content of the Intraoperative Record and any orders documented therein. Any exceptions are noted below.
[2024-11-21] MEDS: HYDROmorphone INJ 2 MG/ML SYR/VIAL IV PRN (11:55)
[2024-11-21] MEDS ORDERED: ACETAMINOPHEN 325 MG TAB PO PRN (13:04)
[2024-11-21] MEDS ORDERED: diphenhydrAMINE 50 MG/ML VIAL IV PRN (13:04)
[2024-11-21] MEDS ORDERED: PROMETHAZINE 12.5 MG/50.5 ML BAG IV PRN (13:04)
[2024-11-21] MEDS ORDERED: ONDANSETRON INJ 2 MG/ML 2 ML VIAL IV PRN (13:04)
[2024-11-21] MEDS ORDERED: oxyCODONE/ACETAMINOPHEN 5mg/325mg TAB PO PRN (13:04)
[2024-11-21] MEDS ORDERED: MoRPHine SULFATE 2 MG/ML CARP IV PRN (13:04)
[2024-11-21] MEDS ORDERED: LORazepam 0.5 MG TAB PO PRN (13:04)
[2024-11-21] MEDS ORDERED: diphenhydrAMINE Capsule 25 MG CAP PO PRN (13:04)
--- NOTE | 2024-11-21 14:39 | Anesthesiology Progress Note ---
Date of Service November 21, 2024 Anesthesia Post Procedure Vital Signs Vital Signs: Temp Pulse Pulse Resp BP Pulse Ox O2 Del Method 11/21/24 14:30 36.3 C L 75 18 147/86 H 95 Room Air 11/21/24 14:02 36.5 C 96 H 17 158/90 H 95 Room Air 11/21/24 13:35 36.5 C 92 H 17 130/82 95 Room Air 11/21/24 13:15 86 21 114/57 L 95 Room Air 11/21/24 13:00 78 12 108/74 94 Room Air 11/21/24 12:45 81 15 139/73 97 Room Air 11/21/24 12:30 78 17 142/77 H 96 Room Air 11/21/24 12:15 36.5 C 81 17 144/70 H 100 Room Air 11/21/24 12:05 77 16 139/76 100 Nasal Cannula 11/21/24 11:55 81 16 154/76 H 100 Oxymask 11/21/24 11:45 83 15 151/98 H 100 Oxymask 11/21/24 11:35 93 H 15 157/88 H 100 Oxymask 11/21/24 11:27 36.2 C L 91 H 13 163/98 H 100 Oxymask 11/21/24 06:19 36.4 C L 85 20 144/78 H 97 Room Air O2 Flow Rate 11/21/24 14:30 11/21/24 14:02 11/21/24 13:35 11/21/24 13:15 11/21/24 13:00 11/21/24 12:45 11/21/24 12:30 11/21/24 12:15 11/21/24 12:05 2 11/21/24 11:55 2 11/21/24 11:45 4 11/21/24 11:35 6 11/21/24 11:27 8 11/21/24 06:19 Pain Intensity Bilateral Breast: Pain Intensity: 3 Transfer of Care Handoff Completed per policy Notes Mental Status: alert / awake / arousable and participated in evaluation Nausea / Vomiting: adequately controlled Pain: adequately controlled Airway Patency, RR, SpO2: stable & adequate BP & HR: stable & adequate Hydration State: stable & adequate Anesthetic Complications: no major complications apparent and Pt Satisfied with anesthetic care
[2024-11-21 23:33] VITALS: RESP 16
[2024-11-22] MEDS: MoRPHine SULFATE 2 MG/ML CARP IV PRN (03:02)
[2024-11-22 03:07] VITALS: TEMP 98.4
[2024-11-22 07:36] VITALS: BP 138/84; O2SAT 94
--- NOTE | 2024-11-22 08:12 | Surgery Progress Note ---
Date of Service November 22, 2024 Assessment & Plan (1) Status post breast reduction: Plan: Drains removed. D/C home today, office follow-up tomorrow Admission and Anticipated Discharge Date Admission Date: November 21, 2024 Ángel Hunt is doing well- eating breakfast in chair. She has mild discomfort. Physical Exam Physical Exam: drains with serosang output. NAC viable drains removed Results & Data Vital Signs (Past 12 Hours) Vital Signs Temp Pulse Resp BP Pulse Ox Pulse Ox O2 Del Method 11/22/24 07:36 36.9 C 81 16 138/84 94 Room Air 11/22/24 03:06 36.9 C 79 16 134/79 95 Room Air 11/21/24 23:00 37.3 C 68 16 143/83 H 96 Room Air 11/21/24 20:40 96 O2 Del Method 11/22/24 07:36 11/22/24 03:06 11/21/24 23:00 11/21/24 20:40 Room Air PG Care Time/CCT Total # of Minutes Spent Total Time Spent with Patient: Total time spent is greater than 50% in coordination of care (as documented) at patient's floor/unit and/or counseling patient: Coding Level of Care Code 12496 Post Operative Follow-Up Diagnoses Status post breast reduction Z98.890
[2024-11-22] MEDS ORDERED: MULTIVITAMIN TAB PO SCH (09:00)
[2024-11-22] MEDS ORDERED: ATORVASTATIN 40 MG TAB PO SCH (09:00)
[2024-11-22] MEDS ORDERED: PANTOprazole 40 MG TAB PO SCH (09:00)
[2024-11-22] MEDS: oxyCODONE/ACETAMINOPHEN 5mg/325mg TAB PO PRN (10:37)
[2024-11-22 10:55] VITALS: PULSE 86
--- NOTE | 2024-11-22 15:47 | Discharge Summary ---
Date of Service November 22, 2024 Admission HPI Per Admitting Provider Patient with history of symptomatic macromastia. Admission Exam Per Admitting Provider macromastia Principal Diagnosis macromastia Discharge Exam drains with serosang output. NAC viable drains removed Discharge Data Allergies Allergy/AdvReac Type Severity Reaction Status Date / Time No Known Allergies Allergy Verified 11/21/24 06:17 Procedures Performed Operation Date: 11/21/24 07:30 Actual Procedures p Bilateral Breast Reduction(Bilateral) - Jaimie Pham MD Hospital Course (1) Status post breast reduction: Patient presented to [facility] with history of symptomatic macromastia. She was taken to the OR and underwent bilateral breast reduction. There were no intraoperative complications. She was taken to recovery and transferred to med/surg for observation. On POD#1, she was feeling well. She was tolerating a regular diet and ambulating. On exam, her vitals were stable. Her incisions were CDI and nipples viable. Her drains were removed. She was discharged home with instructions to follow-up in the office in one day. Total Time Total Time Spent Total Time Spent (In Minutes): 15 Discharge Plan Discharge Items Patient Disposition: Home - Self-Care Reason For Visit: Symptomatic Macromastia Discharge Diagnosis: s/p bilateral breast reduction Activity: As commented below Non-emergency contact: Surgeon Call non-emergency contact if: you have any medication questions, your pain is not controlled, you have a fever, your wound has increased redness and your wound has increased drainage Follow-up/Referrals: Pascale Blake PA-C [Physician Tower Switch Operator] - 11/23/24 8:45 am Norma Lujan [Primary Care Provider] - Diet: Regular Addtl Attending Provider Instructions: ACTIVITY RECOMMENDATIONS: __Normal activities _x_No bending, lifting or straining. Keep arms at shoulder height or below __No driving __Driving allowed when you are off pain medications _x_Walking permitted __You should have help at home for ___ days __You may return to previous diet. DRESSINGS: __No dressings required _x_Keep dressings dry/in place until first office visit __Remove dressings ___ and leave dressings off __Apply ice ___ days __Remove dressings and reapply garment __Apply antibiotic ointment (Bacitracin, Neosporin, etc) to wounds 3-4 times/day for 10 days BATHING: _x_Keep dressings dry _x_Sponge bathing permitted away from surgical dressings __Showering permitted _x_No swimming, hot tubs or soaking in a tub MEDICATIONS: Resume previous medications unless instructed otherwise by your surgeon. _x_Do not use aspirin, Motrin, Advil or Ibuprofen as these may promote bleeding. Please use Tylenol. _x_Prescription(s) provided: pain medication was provided at your last office visit OTHER INSTRUCTIONS: __Record drain output 2-3 times per day SPECIAL CARE INSTRUCTIONS: * It is normal to have a mild fever after surgery. If your temperature is higher than 101.5 degrees F, please call the office at [phone]. * Constipation is a typical side effect of pain medication. An [id number] stool softener will help relieve this. * Leaking around surgical drains may occur and should not cause concern. Some times these drains become clogged. If this happens, remove the bulb and milk the clot out of the tube, then replace the bulb. * Drainage from wounds after liposuction is normal and should be expected. Garments will become soiled. You should protect furniture and bedding. This drainage should mostly subside within 2-3 days. Leave garments in place unless instructed to remove them. * If you have unusual drainage from a wound or are concerned you have an infection or have any questions or concerns, please call the office at [phone]. FOLLOW UP VISIT: If not already scheduled, please call the office, , when you return home after surgery to schedule an appointment to be seen in _1__ days. Pending Studies at Discharge: Yes Stand-Alone Forms: My [facility], Smoking Cessation Medications and DC Order Prescriptions: Continued pantoprazole [Protonix] 40 mg tablet,delayed release (DR/EC) 40 mg PO QAM atorvastatin [Lipitor] 40 mg tablet 40 mg PO QAM Align (B.infantis) 4 mg Capsule 4 mg PO [id number] Rx Instructions: take 3- times per week Discontinued estradiol 0.5 mg tablet 0.5 mg PO QAM Rx Instructions: off 5 days; repeat cycle Discharge Orders: Discharge Order (Routine); Ordered 11/22/24 Ordered By: Pascale Blake Admission Data Admit Date/Time: 11/21/24 11:27 Attending Provider: Jaimie Pham Admit Provider: Jaimie Pham Primary Care Provider: Norma Lujan Other Interventions: Discharge Summary Assessment (RN) Last Done: 11/22/24 10:54 Coding Level of Care Code 14807 OBS Care - Discharge Diagnoses Status post breast reduction Z98.890
== END 2024-11-22 10:54 | disposition home or self-care (01) ==
LOC: PACUINP 06:03 → ASU 06:03 → 3E 13:25

== ENCOUNTER 2024-12-08 21:40 | Observation (INO) ==
[2024-12-08] MEDS: SODIUM CHLORIDE 0.9% 1,000 ML IV SCH (22:37)
[2024-12-08] MEDS: ALBUT/IPRATROP 3MG/0.5MG NEB 3 ML VIAL NEB STA (22:57)
[2024-12-08] MEDS: methylPREDNISolone 125 MG/2 ML VIAL IV STA (22:57)
[2024-12-08 23:13] LABS: Alanine Aminotransferase 12 U/L (7-52); Albumin Level 4.2 gm/dl (3.4-5.0); Alkaline Phosphatase 109 U/L (34-104); Anion Gap 5 (3-11); Aspartate Aminotransferase 14 U/L (13-39); BUN Creatinine Ratio 13.4 (10-20); Bilirubin Direct 0.1 mg/dl (0-0.2); Bilirubin,Total 0.6 mg/dl (0.2-1.0); Blood Urea Nitrogen 15 mg/dl (6-23); Calcium 8.9 mg/dl (8.6-10.3); Carbon Dioxide 28 mmol/L (21-32); Chloride 108 mmol/L (98-107); Creatinine Clr Calc Pharmacy 49.1 ml/min; Glucose 104 mg/dl (70-99(Fasting)); Magnesium 1.9 mg/dl (1.7-2.4); Potassium 3.7 mmol/L (3.5-5.1); Sodium 141 mmol/L (136-145); Total Protein 7.3 gm/dl (6.0-8.3)
[2024-12-08 23:15] LABS: Base Excess VBG 0 mEq/L; HCO3 VBG 25 mmol/L; Oxygen Saturation VBG 69.1 %; PCO2 VBG 43 mmHg (38-50); PO2 VBG 38 mmHg; pH VBG 7.38 (7.36-7.41)
[2024-12-08] MEDS: OPTIRAY 320 125ml IV ONE (23:17)
[2024-12-08 23:19] LABS: Troponin I High Sensitivity < 2.3 pg/ml (0-14)
[2024-12-08 23:21] LABS: Basophils # (auto) 0.09 K/uL (0.00-0.20); Basophils % (auto) 0.7 %; Eosinophils # (auto) 0.86 K/uL (0.00-0.50); Eosinophils % (auto) 6.9 %; Hematocrit (blood only) 40.5 % (37.0-47.0); Hemoglobin 13.7 g/dl (12.0-16.0); Immature Granulocytes # (auto) 0.04 K/uL (0.01-0.20); Immature Granulocytes % (auto) 0.3 %; Lymphocytes # (auto) 2.03 K/uL (1.20-3.40); Lymphocytes % (auto) 16.3 %; Mean Corpuscular Hemoglobin 29.2 pg (25.0-34.0); Mean Corpuscular Hgb Conc 33.8 g/dL (32.0-36.0); Mean Corpuscular Volume 86.4 fL (80.0-100.0); Mean Platelet Volume 10.4 fL (9.4-12.4); Monocytes # (auto) 0.73 K/uL (0.11-0.59); Monocytes % (auto) 5.9 %; Neutrophils # (auto) 8.68 K/uL (1.40-6.50); Neutrophils % (auto) 69.9 %; Platelet Count 313 K/uL (130-400); RDW Coefficient of Variation 12.9 % (11.5-14.5); Red Blood Count 4.69 M/uL (4.20-5.40); White Blood Count 12.43 K/ul (4.8-10.8)
[2024-12-08 23:28] LABS: INR 0.9 (0.9-1.1); Partial Thromboplastin Ratio 0.9; Partial Thromboplastin Time 24 Seconds (21-31); Prothrombin Time 10.3 Seconds (9.0-12.0)
[2024-12-08 23:32] LABS: Adenovirus PCR Not Detected (NotDetected); Bordetella parapertussis PCR Not Detected (NotDetected); Bordetella pertussis PCR Not Detected (NotDetected); Chlamydia pneumoniae PCR Not Detected (NotDetected); Coronavirus 229E PCR Not Detected (NotDetected); Coronavirus CoV-2 (COVID19)PCR Not Detected (NotDetected); Coronavirus HKU1 PCR Not Detected (NotDetected); Coronavirus NL63 PCR Not Detected (NotDetected); Coronavirus OC43PCR Not Detected (NotDetected); Human Metapneumovirus PCR Not Detected (NotDetected); Influenza A PCR Not Detected (NotDetected); Influenza B PCR Not Detected (NotDetected); Mycoplasma pneumoniae PCR Not Detected (NotDetected); Parainfluenza Virus 1 PCR Not Detected (NotDetected); Parainfluenza Virus 2 PCR Not Detected (NotDetected); Parainfluenza Virus 3 PCR Not Detected (NotDetected); Parainfluenza Virus 4 PCR Not Detected (NotDetected); Respiratory Syncytial VirusPCR Not Detected (NotDetected); Rhinovirus/Enterovirus PCR DETECTED (NotDetected)
[2024-12-08] MEDS: PIPERACILLIN/TAZOBACTAM 4.5 GM/100 ML BAG IV ONE (23:44)
[2024-12-09 00:46] LABS: Appearance Urine Clear (Clear); Bilirubin Urine Negative (Negative); Blood Urine Negative (Negative); Color Urine Yellow; Glucose Urine UA Negative (Negative); Ketones Urine Negative (Negative); Leukocyte Esterase Urine Negative (Negative); Nitrite Urine Negative (Negative); Protein Urine Negative (Negative); Specific Gravity Urine > 1.045 (1.000-1.030); Urobilinogen Urine Negative (Negative)
--- NOTE | 2024-12-09 01:22 | Emergency Department Note ---
History of Present Illness General Chief complaint: Shortness of Breath/Dyspnea Stated complaint: SOB, COUGH Time Seen by Provider: 12/08/24 22:03 History of Present Illness This 59-year-old female with a had breast reduction surgery a few weeks ago presents ER complaining of cough, sore throat and shortness of breath today. Patient sats were 87% in triage. Patient states she felt so short of breath she was wearing another family members oxygen. She quit smoking several years ago. Patient denies fever, chills, flulike illness. Home Medications Medication Instructions Recorded Confirmed Type atorvastatin 40 mg tablet (Lipitor) 40 mg PO QAM 07/30/21 11/21/24 History pantoprazole 40 mg tablet,delayed 40 mg PO QAM 07/30/21 11/21/24 History release (Protonix) Bifidobacterium infantis 4 mg 4 mg PO 3XWK 09/01/22 11/21/24 History capsule (Align (B.infantis)) Allergies Allergy/AdvReac Type Severity Reaction Status Date / Time No Known Allergies Allergy Verified 11/21/24 06:17 Past Med/Surg History Problem List (Updated 12/09/24 @ 02:43 by Rachel Maria PA-C) Hypoxemia (Acute) Acute bronchitis due to Rhinovirus (Acute) Status post breast reduction Macromastia Abscess of sigmoid colon Fistula (Acute) Sepsis (Acute) Abdominal infection (Acute) Bowel perforation (Acute) Hyperkalemia Lactate blood increase Bowel perforation Colon cancer screening Sebaceous cyst Lipoma of lower extremity Ischemic colitis GERD (gastroesophageal reflux disease) Hiatal hernia Endometriosis DVT prophylaxis BRBPR (bright red blood per rectum) Abdominal pain (Acute) Diverticulosis of colon Lung nodules Hyperlipidemia Former heavy tobacco smoker Vomiting and diarrhea (Acute) Vomiting and diarrhea (Acute) Vomiting and diarrhea (Acute) Colitis (Acute) Medical History GERD (gastroesophageal reflux disease) Hiatal hernia History of COVID-19 04/29/22, home test, not hosp; fever for 36 hrs, flu-like symptoms>resolved. 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; stress echo scanned in system from 2018; pt unaware of echo prior to Surgical History Hx of bladder repair surgery bladder tacking S/P excision of lipoma (08/25/21) Left Lower Extremity Lipoma Excision, Upper Back Cyst Excision(Left) - Darius Perez DO 08/25/2021 History of History of wisdom tooth extraction History of laparoscopy History of total abdominal hysterectomy and bilateral salpingo-oophorectomy History of colonoscopy (2022) 2022, got bowel perforation during this scope, spent "a lot of time in hospitals following and no sx required" Family History Sister Breast cancer Mother Hypertension Other No family history of adverse response to anesthesia Social History (Updated 05/31/24 @ 14:02 by Melina Oh) Smoking Status: Former smoker Tobacco Type: Cigarettes packs per day: 1.5; Second Hand Exposure: Yes (hx as child); Do You Dip or Chew Tobacco: No; Hx Alcohol Use: No Hx Substance Use: Yes Last Used Substance Other:: remote hx Preferred Language: Kyrgyz Communication Ability: Effective Director Of Regional Sales Required: No Beliefs That Will Affect Care: None marital status: Current Living Situation: Spouse current occupational status: employed 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 How many Children do You have: 2 Feels Safe at Home: Yes during the past year weight has: remained stable Assistive Devices: Glasses Review of Systems A total of 10 systems reviewed and were otherwise negative Physical Exam Vital Signs Vital Signs - 24 hr 12/08/24 21:56 12/08/24 22:07 12/08/24 22:33 Temperature 36.1 C L Temperature Source Temporal Artery Scan Pulse Rate 100 H 98 H 98 H Pulse Rate from SpO2 Sensor Pulse Rhythm Respiratory Rate 26 H 17 Respiratory Effort / Characteristics Respiratory Depth Respiratory Pattern Blood Pressure 169/81 H Blood Pressure Mean 110 Pulse Oximetry 87 L 91 Oxygen Delivery Method Room Air Room Air Oxygen Flow Rate Sepsis Recent Fever Within 48 Hours No Sepsis New/Unexplained Change in Mental Status No Sepsis Action Taken by Nursing No Action Required Oxygen Flow Rate - Titration Pulse Oximetry Post Tiitration 12/08/24 22:39 12/08/24 22:40 12/08/24 22:45 Temperature Temperature Source Pulse Rate 96 H 90 Pulse Rate from SpO2 Sensor 91 H Pulse Rhythm Regular Respiratory Rate 16 16 Respiratory Effort / Characteristics Respiratory Depth Respiratory Pattern Blood Pressure Blood Pressure Mean Pulse Oximetry 88 L 94 94 Oxygen Delivery Method Nasal Cannula Nasal Cannula Nasal Cannula Oxygen Flow Rate 0 2 2 Sepsis Recent Fever Within 48 Hours Sepsis New/Unexplained Change in Mental Status Sepsis Action Taken by Nursing Oxygen Flow Rate - Titration 2 Pulse Oximetry Post Tiitration 94 12/08/24 22:45 12/08/24 22:57 12/08/24 23:00 Temperature Temperature Source Pulse Rate 98 H 91 H Pulse Rate from SpO2 Sensor 97 H Pulse Rhythm Respiratory Rate 18 22 Respiratory Effort / Characteristics Spontaneous Respiratory Depth Normal Respiratory Pattern Tachypnea Blood Pressure 179/107 H 166/95 H Blood Pressure Mean 131 136 Pulse Oximetry 93 100 Oxygen Delivery Method Room Air Nasal Cannula Nebulizer Oxygen Flow Rate 88 2 8 Sepsis Recent Fever Within 48 Hours Sepsis New/Unexplained Change in Mental Status Sepsis Action Taken by Nursing Oxygen Flow Rate - Titration Pulse Oximetry Post Tiitration 12/08/24 23:40 12/08/24 23:47 12/09/24 01:59 Temperature Temperature Source Pulse Rate 99 H 98 H 105 H Pulse Rate from SpO2 Sensor Pulse Rhythm Respiratory Rate 17 23 Respiratory Effort / Characteristics Respiratory Depth Respiratory Pattern Blood Pressure 169/98 H 160/104 H Blood Pressure Mean 116 113 Pulse Oximetry 95 95 Oxygen Delivery Method Nasal Cannula Nasal Cannula Oxygen Flow Rate 2 2 Sepsis Recent Fever Within 48 Hours Sepsis New/Unexplained Change in Mental Status Sepsis Action Taken by Nursing Oxygen Flow Rate - Titration Pulse Oximetry Post Tiitration VITALS: Vitals are noted on the nurse's note and reviewed by myself. Vital signs hypoxic. GENERAL: Pleasant female who appears short of breath, well-developed well- nourished. SKIN: The skin was without rashes, erythema, edema, or bruising. There is no tenting of the skin. Capillary reflex less than 2 seconds. HEAD: Normocephalic atraumatic. EARS: External auditory canals clear EYES: Pupils equal round and reactive to light and accommodation. Conjunctivae without injection, sclerae without icterus. Extraocular movements intact. NOSE: Patent, no discharge. MOUTH: Mucous membranes moist. Pharynx without erythema or exudate. Uvula midline. Airway patent. Tongue does not deviate. NECK: Supple without nuchal rigidity. No lymphadenopathy. No thyromegaly. Cervical spine is nontender. No JVD. HEART: Regular rate and rhythm LUNGS: Diffuse inspiratory and end expiratory wheezes. no retractions or accessory muscle use. ABDOMEN: Positive bowel sounds x 4. Normal tympanic percussion. Soft, nontender, without masses or organomegaly. Castro sign negative. No guarding or rebound tenderness. No CVA tenderness MUSCULOSKELETAL: No muscle atrophy, erythema, or edema noted. NEURO: Patient was alert and oriented to person place and time. Normal sensation to light and sharp touch. No focal neurological deficits. Course Administered Medications Discontinued Medications Albuterol (Albut/Ipratrop 3mg/0.5mg Neb 3 Ml Vial) 3 ml NEB NOW STA; Protocol Stop: 12/08/24 22:10 Last Admin: 12/08/24 22:57 Dose: 3 ml Documented By: KASSIE Albuterol (Albut/Ipratrop 3mg/0.5mg Neb 3 Ml Vial) 3 ml NEB NOW STA; Protocol Stop: 12/09/24 00:59 Last Admin: 12/09/24 01:36 Dose: 3 ml Documented By: KASSIE Sodium Chloride (Nss) 1,000 mls @ 999 mls/hr IV .[id number] YOVANI Stop: 12/08/24 23:15 Last Infusion: 12/09/24 01:00 Dose: Infused Documented By: Admin: 12/08/24 22:37 Dose: 999 mls/hr Documented By: FREIDA Piperacillin Sod/Tazobactam Sod (Zosyn) 4.5 gm in 100 mls @ 200 mls/hr IV NOW ONE; Protocol Stop: 12/08/24 22:40 Last Infusion: 12/09/24 00:15 Dose: Infused Documented By: Admin: 12/08/24 23:44 Dose: 200 mls/hr Documented By: KASSIE Acetaminophen (Ofirmev) 1,000 mg in 100 mls @ 400 mls/hr IV NOW STA Stop: 12/09/24 01:12 Last Infusion: 12/09/24 02:28 Dose: Infused Documented By: Admin: 12/09/24 01:36 Dose: 400 mls/hr Documented By: KASSIE Ioversol (Optiray 320 125ml) 119 ml IV ONCE ONE Stop: 12/08/24 23:18 Last Admin: 12/08/24 23:17 Dose: 119 ml Documented By: BRAYDEN Methylprednisolone (Methylprednisolone 125 Mg/2 Ml Vial) 125 mg IV NOW STA Stop: 12/08/24 22:10 Last Admin: 12/08/24 22:57 Dose: 125 mg Documented By: KASSIE Medical Decision Making Medical Records Attestation: I reviewed the patient's medical records. Home Medications Current Medication List: was personally reviewed by me Laboratory Data Attestation: I reviewed the patient's lab results. 12/08/24 22:40 12/08/24 22:40 Lab Results 12/08/24 12/08/24 12/08/24 Range/Units 22:14 22:40 22:40 WBC Cancelled 12.43 H RBC Cancelled Hgb Hct MCV MCH MCHC RDW Std Deviation RDW Coeff of Orly Plt Count MPV Immature Gran % (Auto) Neut % (Auto) Lymph % (Auto) [place] % (Auto) Eos % (Auto) Baso % (Auto) Neut # (Auto) Lymph # (Auto) [place] # (Auto) Eos # (Auto) Baso # (Auto) Immature Gran # (Auto) Absolute Nucleated RBC Nucleated RBC % (auto) Neutrophils % (Manual) Band Neutrophils % Lymphocytes % (Manual) Prolymphocyte % Reactive Lymphs % (Man) Monocytes % (Manual) Eosinophils % (Manual) Basophils % (Manual) Metamyelocytes % (Man) Myelocytes % (Man) Promyelocytes % (Man) Blast Cells % (Manual) Plasma Cell % (Manual) Other Cells % Nucleated RBC % Neutrophils # (Manual) Band Neutrophils # Total Absolute Neuts Lymphocytes # (Manual) Prolymphocyte # Reactive Lymphs # Total Abs Lymphocytes Monocytes # (Manual) Eosinophils # (Manual) Basophils # (Manual) Metamyelocytes # (Man) Myelocytes # (Manual) Promyelocytes # (Man) Blast Cells # (Man) Plasma Cell # (Manual) Other Cells # Nucleated RBCs # (Man) Hypersegmented Neuts Hyposegmented Neuts Hypogranular Neuts Large Granular Lymphs # Lrg Granular Lymphs Hairy Cells Smudge Cells Toxic Granulation Toxic Vacuolation Dohle Bodies Sera Rods Platelet Estimate Hypogranular Platelets Giant Platelets Platelet Satelliting RBC Morphology Polychromasia Hypochromasia Poikilocytosis Basophilic Stippling Anisocytosis Microcytosis Macrocytosis Spherocytes Pappenheimer Bodies Sickle Cells Target Cells Tear Drop Cells Ovalocytes Stomatocytes [place] Bodies Echinocytes Acanthocytes (Spur) Rouleaux RBC Agglutinates Schistocytes Sezary Cell PT (9.0-12.0) Seconds INR (0.9-1.1) APTT (21-31) Seconds PTT Ratio VBG pH (7.36-7.41) VBG pCO2 (38-50) mmHg VBG pO2 mmHg VBG HCO3 mmol/L VBG O2 Saturation % VBG Base Excess mEq/L Sodium (136-145) mmol/L Potassium (3.5-5.1) mmol/L Chloride (98-107) mmol/L Carbon Dioxide (21-32) mmol/L Anion Gap (3-11) BUN (6-23) mg/dl Creatinine (0.6-1.2) mg/dl Est Cr Clr Drug Dosing ml/min eGFR BUN/Creatinine Ratio (10-20) Glucose (70-99(Fasting)) mg/dl Lactate (0.4-2.0) mmol/L Calcium (8.6-10.3) mg/dl Magnesium (1.7-2.4) mg/dl Total Bilirubin (0.2-1.0) mg/dl Direct Bilirubin (0-0.2) mg/dl AST (13-39) U/L ALT (7-52) U/L Alkaline Phosphatase (34-104) U/L Troponin I High Sens (0-14) pg/ml Total Protein (6.0-8.3) gm/dl Albumin (3.4-5.0) gm/dl Procalcitonin (0-0.5) ng/ml Urine Color Urine Appearance (Clear) Urine pH (4.5-7.5) Ur Specific [place] (1.000-1.030) Urine Protein (Negative) Urine Glucose (UA) (Negative) Urine Ketones (Negative) Urine Blood (Negative) Urine Nitrite (Negative) Urine Bilirubin (Negative) Urine Urobilinogen (Negative) Ur Leukocyte Esterase (Negative) Adenovirus (PCR) Not Detected (NotDetected) B. pertussis DNA (PCR) Not Detected (NotDetected) B.parapertussis DNA PCR Not Detected (NotDetected) C. pneumoniae DNA (PCR) Not Detected (NotDetected) Coronavirus OC43 (PCR) Not Detected (NotDetected) Coronavirus HKU1 (PCR) Not Detected (NotDetected) Coronavirus 229E (PCR) Not Detected (NotDetected) SARS-CoV-2 (PCR) Not Detected (NotDetected) Coronavirus NL63 (PCR) Not Detected (NotDetected) Human Metapneumovir PCR Not Detected (NotDetected) Influenza Type A (PCR) Not Detected (NotDetected) Influenza Type B (PCR) Not Detected (NotDetected) M. pneumoniae (PCR) Not Detected (NotDetected) Parainfluenza 1 (PCR) Not Detected (NotDetected) Parainfluenza 2 (PCR) Not Detected (NotDetected) Parainfluenza 3 (PCR) Not Detected (NotDetected) Parainfluenza 4 (PCR) Not Detected (NotDetected) RSV (PCR) Not Detected (NotDetected) Entero/Rhino (PCR) DETECTED A (NotDetected) Group A Strep (PCR) NOT DETECTED (NotDetected) Blood Parasites ID 12/08/24 12/08/24 12/08/24 Range/Units 22:40 22:40 22:40 WBC RBC 4.69 Hgb Cancelled 13.7 Hct Cancelled 40.5 MCV Cancelled MCH MCHC RDW Std Deviation RDW Coeff of Orly Plt Count MPV Immature Gran % (Auto) Neut % (Auto) Lymph % (Auto) [place] % (Auto) Eos % (Auto) Baso % (Auto) Neut # (Auto) Lymph # (Auto) [place] # (Auto) Eos # (Auto) Baso # (Auto) Immature Gran # (Auto) Absolute Nucleated RBC Nucleated RBC % (auto) Neutrophils % (Manual) Band Neutrophils % Lymphocytes % (Manual) Prolymphocyte % Reactive Lymphs % (Man) Monocytes % (Manual) Eosinophils % (Manual) Basophils % (Manual) Metamyelocytes % (Man) Myelocytes % (Man) Promyelocytes % (Man) Blast Cells % (Manual) Plasma Cell % (Manual) Other Cells % Nucleated RBC % Neutrophils # (Manual) Band Neutrophils # Total Absolute Neuts Lymphocytes # (Manual) Prolymphocyte # Reactive Lymphs # Total Abs Lymphocytes Monocytes # (Manual) Eosinophils # (Manual) Basophils # (Manual) Metamyelocytes # (Man) Myelocytes # (Manual) Promyelocytes # (Man) Blast Cells # (Man) Plasma Cell # (Manual) Other Cells # Nucleated RBCs # (Man) Hypersegmented Neuts Hyposegmented Neuts Hypogranular Neuts Large Granular Lymphs # Lrg Granular Lymphs Hairy Cells Smudge Cells Toxic Granulation Toxic Vacuolation Dohle Bodies Sera Rods Platelet Estimate Hypogranular Platelets Giant Platelets Platelet Satelliting RBC Morphology Polychromasia Hypochromasia Poikilocytosis Basophilic Stippling Anisocytosis Microcytosis Macrocytosis Spherocytes Pappenheimer Bodies Sickle Cells Target Cells Tear Drop Cells Ovalocytes Stomatocytes [place] Bodies Echinocytes Acanthocytes (Spur) Rouleaux RBC Agglutinates Schistocytes Sezary Cell PT (9.0-12.0) Seconds INR (0.9-1.1) APTT (21-31) Seconds PTT Ratio VBG pH (7.36-7.41) VBG pCO2 (38-50) mmHg VBG pO2 mmHg VBG HCO3 mmol/L VBG O2 Saturation % VBG Base Excess mEq/L Sodium (136-145) mmol/L Potassium (3.5-5.1) mmol/L Chloride (98-107) mmol/L Carbon Dioxide (21-32) mmol/L Anion Gap (3-11) BUN (6-23) mg/dl Creatinine (0.6-1.2) mg/dl Est Cr Clr Drug Dosing ml/min eGFR BUN/Creatinine Ratio (10-20) Glucose (70-99(Fasting)) mg/dl Lactate (0.4-2.0) mmol/L Calcium (8.6-10.3) mg/dl Magnesium (1.7-2.4) mg/dl Total Bilirubin (0.2-1.0) mg/dl Direct Bilirubin (0-0.2) mg/dl AST (13-39) U/L ALT (7-52) U/L Alkaline Phosphatase (34-104) U/L Troponin I High Sens (0-14) pg/ml Total Protein (6.0-8.3) gm/dl Albumin (3.4-5.0) gm/dl Procalcitonin (0-0.5) ng/ml Urine Color Urine Appearance (Clear) Urine pH (4.5-7.5) Ur Specific [place] (1.000-1.030) Urine Protein (Negative) Urine Glucose (UA) (Negative) Urine Ketones (Negative) Urine Blood (Negative) Urine Nitrite (Negative) Urine Bilirubin (Negative) Urine Urobilinogen (Negative) Ur Leukocyte Esterase (Negative) Adenovirus (PCR) (NotDetected) B. pertussis DNA (PCR) (NotDetected) B.parapertussis DNA PCR (NotDetected) C. pneumoniae DNA (PCR) (NotDetected) Coronavirus OC43 (PCR) (NotDetected) Coronavirus HKU1 (PCR) (NotDetected) Coronavirus 229E (PCR) (NotDetected) SARS-CoV-2 (PCR) (NotDetected) Coronavirus NL63 (PCR) (NotDetected) Human Metapneumovir PCR (NotDetected) Influenza Type A (PCR) (NotDetected) Influenza Type B (PCR) (NotDetected) M. pneumoniae (PCR) (NotDetected) Parainfluenza 1 (PCR) (NotDetected) Parainfluenza 2 (PCR) (NotDetected) Parainfluenza 3 (PCR) (NotDetected) Parainfluenza 4 (PCR) (NotDetected) RSV (PCR) (NotDetected) Entero/Rhino (PCR) (NotDetected) Group A Strep (PCR) (NotDetected) Blood Parasites ID 12/08/24 12/08/24 12/08/24 Range/Units 22:40 22:40 22:40 WBC RBC Hgb Hct MCV 86.4 MCH Cancelled 29.2 MCHC Cancelled 33.8 RDW Std Deviation Cancelled RDW Coeff of Orly Plt Count MPV Immature Gran % (Auto) Neut % (Auto) Lymph % (Auto) [place] % (Auto) Eos % (Auto) Baso % (Auto) Neut # (Auto) Lymph # (Auto) [place] # (Auto) Eos # (Auto) Baso # (Auto) Immature Gran # (Auto) Absolute Nucleated RBC Nucleated RBC % (auto) Neutrophils % (Manual) Band Neutrophils % Lymphocytes % (Manual) Prolymphocyte % Reactive Lymphs % (Man) Monocytes % (Manual) Eosinophils % (Manual) Basophils % (Manual) Metamyelocytes % (Man) Myelocytes % (Man) Promyelocytes % (Man) Blast Cells % (Manual) Plasma Cell % (Manual) Other Cells % Nucleated RBC % Neutrophils # (Manual) Band Neutrophils # Total Absolute Neuts Lymphocytes # (Manual) Prolymphocyte # Reactive Lymphs # Total Abs Lymphocytes Monocytes # (Manual) Eosinophils # (Manual) Basophils # (Manual) Metamyelocytes # (Man) Myelocytes # (Manual) Promyelocytes # (Man) Blast Cells # (Man) Plasma Cell # (Manual) Other Cells # Nucleated RBCs # (Man) Hypersegmented Neuts Hyposegmented Neuts Hypogranular Neuts Large Granular Lymphs # Lrg Granular Lymphs Hairy Cells Smudge Cells Toxic Granulation Toxic Vacuolation Dohle Bodies Sera Rods Platelet Estimate Hypogranular Platelets Giant Platelets Platelet Satelliting RBC Morphology Polychromasia Hypochromasia Poikilocytosis Basophilic Stippling Anisocytosis Microcytosis Macrocytosis Spherocytes Pappenheimer Bodies Sickle Cells Target Cells Tear Drop Cells Ovalocytes Stomatocytes [place] Bodies Echinocytes Acanthocytes (Spur) Rouleaux RBC Agglutinates Schistocytes Sezary Cell PT (9.0-12.0) Seconds INR (0.9-1.1) APTT (21-31) Seconds PTT Ratio VBG pH (7.36-7.41) VBG pCO2 (38-50) mmHg VBG pO2 mmHg VBG HCO3 mmol/L VBG O2 Saturation % VBG Base Excess mEq/L Sodium (136-145) mmol/L Potassium (3.5-5.1) mmol/L Chloride (98-107) mmol/L Carbon Dioxide (21-32) mmol/L Anion Gap (3-11) BUN (6-23) mg/dl Creatinine (0.6-1.2) mg/dl Est Cr Clr Drug Dosing ml/min eGFR BUN/Creatinine Ratio (10-20) Glucose (70-99(Fasting)) mg/dl Lactate (0.4-2.0) mmol/L Calcium (8.6-10.3) mg/dl Magnesium (1.7-2.4) mg/dl Total Bilirubin (0.2-1.0) mg/dl Direct Bilirubin (0-0.2) mg/dl AST (13-39) U/L ALT (7-52) U/L Alkaline Phosphatase (34-104) U/L Troponin I High Sens (0-14) pg/ml Total Protein (6.0-8.3) gm/dl Albumin (3.4-5.0) gm/dl Procalcitonin (0-0.5) ng/ml Urine Color Urine Appearance (Clear) Urine pH (4.5-7.5) Ur Specific [place] (1.000-1.030) Urine Protein (Negative) Urine Glucose (UA) (Negative) Urine Ketones (Negative) Urine Blood (Negative) Urine Nitrite (Negative) Urine Bilirubin (Negative) Urine Urobilinogen (Negative) Ur Leukocyte Esterase (Negative) Adenovirus (PCR) (NotDetected) B. pertussis DNA (PCR) (NotDetected) B.parapertussis DNA PCR (NotDetected) C. pneumoniae DNA (PCR) (NotDetected) Coronavirus OC43 (PCR) (NotDetected) Coronavirus HKU1 (PCR) (NotDetected) Coronavirus 229E (PCR) (NotDetected) SARS-CoV-2 (PCR) (NotDetected) Coronavirus NL63 (PCR) (NotDetected) Human Metapneumovir PCR (NotDetected) Influenza Type A (PCR) (NotDetected) Influenza Type B (PCR) (NotDetected) M. pneumoniae (PCR) (NotDetected) Parainfluenza 1 (PCR) (NotDetected) Parainfluenza 2 (PCR) (NotDetected) Parainfluenza 3 (PCR) (NotDetected) Parainfluenza 4 (PCR) (NotDetected) RSV (PCR) (NotDetected) Entero/Rhino (PCR) (NotDetected) Group A Strep (PCR) (NotDetected) Blood Parasites ID 12/08/24 12/08/24 12/08/24 Range/Units 22:40 22:40 22:40 WBC RBC Hgb Hct MCV MCH MCHC RDW Std Deviation 40.0 RDW Coeff of Orly Cancelled 12.9 Plt Count Cancelled 313 MPV Cancelled Immature Gran % (Auto) Neut % (Auto) Lymph % (Auto) [place] % (Auto) Eos % (Auto) Baso % (Auto) Neut # (Auto) Lymph # (Auto) [place] # (Auto) Eos # (Auto) Baso # (Auto) Immature Gran # (Auto) Absolute Nucleated RBC Nucleated RBC % (auto) Neutrophils % (Manual) Band Neutrophils % Lymphocytes % (Manual) Prolymphocyte % Reactive Lymphs % (Man) Monocytes % (Manual) Eosinophils % (Manual) Basophils % (Manual) Metamyelocytes % (Man) Myelocytes % (Man) Promyelocytes % (Man) Blast Cells % (Manual) Plasma Cell % (Manual) Other Cells % Nucleated RBC % Neutrophils # (Manual) Band Neutrophils # Total Absolute Neuts Lymphocytes # (Manual) Prolymphocyte # Reactive Lymphs # Total Abs Lymphocytes Monocytes # (Manual) Eosinophils # (Manual) Basophils # (Manual) Metamyelocytes # (Man) Myelocytes # (Manual) Promyelocytes # (Man) Blast Cells # (Man) Plasma Cell # (Manual) Other Cells # Nucleated RBCs # (Man) Hypersegmented Neuts Hyposegmented Neuts Hypogranular Neuts Large Granular Lymphs # Lrg Granular Lymphs Hairy Cells Smudge Cells Toxic Granulation Toxic Vacuolation Dohle Bodies Sera Rods Platelet Estimate Hypogranular Platelets Giant Platelets Platelet Satelliting RBC Morphology Polychromasia Hypochromasia Poikilocytosis Basophilic Stippling Anisocytosis Microcytosis Macrocytosis Spherocytes Pappenheimer Bodies Sickle Cells Target Cells Tear Drop Cells Ovalocytes Stomatocytes [place] Bodies Echinocytes Acanthocytes (Spur) Rouleaux RBC Agglutinates Schistocytes Sezary Cell PT (9.0-12.0) Seconds INR (0.9-1.1) APTT (21-31) Seconds PTT Ratio VBG pH (7.36-7.41) VBG pCO2 (38-50) mmHg VBG pO2 mmHg VBG HCO3 mmol/L VBG O2 Saturation % VBG Base Excess mEq/L Sodium (136-145) mmol/L Potassium (3.5-5.1) mmol/L Chloride (98-107) mmol/L Carbon Dioxide (21-32) mmol/L Anion Gap (3-11) BUN (6-23) mg/dl Creatinine (0.6-1.2) mg/dl Est Cr Clr Drug Dosing ml/min eGFR BUN/Creatinine Ratio (10-20) Glucose (70-99(Fasting)) mg/dl Lactate (0.4-2.0) mmol/L Calcium (8.6-10.3) mg/dl Magnesium (1.7-2.4) mg/dl Total Bilirubin (0.2-1.0) mg/dl Direct Bilirubin (0-0.2) mg/dl AST (13-39) U/L ALT (7-52) U/L Alkaline Phosphatase (34-104) U/L Troponin I High Sens (0-14) pg/ml Total Protein (6.0-8.3) gm/dl Albumin (3.4-5.0) gm/dl Procalcitonin (0-0.5) ng/ml Urine Color Urine Appearance (Clear) Urine pH (4.5-7.5) Ur Specific [place] (1.000-1.030) Urine Protein (Negative) Urine Glucose (UA) (Negative) Urine Ketones (Negative) Urine Blood (Negative) Urine Nitrite (Negative) Urine Bilirubin (Negative) Urine Urobilinogen (Negative) Ur Leukocyte Esterase (Negative) Adenovirus (PCR) (NotDetected) B. pertussis DNA (PCR) (NotDetected) B.parapertussis DNA PCR (NotDetected) C. pneumoniae DNA (PCR) (NotDetected) Coronavirus OC43 (PCR) (NotDetected) Coronavirus HKU1 (PCR) (NotDetected) Coronavirus 229E (PCR) (NotDetected) SARS-CoV-2 (PCR) (NotDetected) Coronavirus NL63 (PCR) (NotDetected) Human Metapneumovir PCR (NotDetected) Influenza Type A (PCR) (NotDetected) Influenza Type B (PCR) (NotDetected) M. pneumoniae (PCR) (NotDetected) Parainfluenza 1 (PCR) (NotDetected) Parainfluenza 2 (PCR) (NotDetected) Parainfluenza 3 (PCR) (NotDetected) Parainfluenza 4 (PCR) (NotDetected) RSV (PCR) (NotDetected) Entero/Rhino (PCR) (NotDetected) Group A Strep (PCR) (NotDetected) Blood Parasites ID 12/08/24 12/08/24 12/08/24 Range/Units 22:40 22:40 22:40 WBC RBC Hgb Hct MCV MCH MCHC RDW Std Deviation RDW Coeff of Orly Plt Count MPV 10.4 Immature Gran % (Auto) Cancelled 0.3 Neut % (Auto) Cancelled 69.9 Lymph % (Auto) Cancelled [place] % (Auto) Eos % (Auto) Baso % (Auto) Neut # (Auto) Lymph # (Auto) [place] # (Auto) Eos # (Auto) Baso # (Auto) Immature Gran # (Auto) Absolute Nucleated RBC Nucleated RBC % (auto) Neutrophils % (Manual) Band Neutrophils % Lymphocytes % (Manual) Prolymphocyte % Reactive Lymphs % (Man) Monocytes % (Manual) Eosinophils % (Manual) Basophils % (Manual) Metamyelocytes % (Man) Myelocytes % (Man) Promyelocytes % (Man) Blast Cells % (Manual) Plasma Cell % (Manual) Other Cells % Nucleated RBC % Neutrophils # (Manual) Band Neutrophils # Total Absolute Neuts Lymphocytes # (Manual) Prolymphocyte # Reactive Lymphs # Total Abs Lymphocytes Monocytes # (Manual) Eosinophils # (Manual) Basophils # (Manual) Metamyelocytes # (Man) Myelocytes # (Manual) Promyelocytes # (Man) Blast Cells # (Man) Plasma Cell # (Manual) Other Cells # Nucleated RBCs # (Man) Hypersegmented Neuts Hyposegmented Neuts Hypogranular Neuts Large Granular Lymphs # Lrg Granular Lymphs Hairy Cells Smudge Cells Toxic Granulation Toxic Vacuolation Dohle Bodies Sera Rods Platelet Estimate Hypogranular Platelets Giant Platelets Platelet Satelliting RBC Morphology Polychromasia Hypochromasia Poikilocytosis Basophilic Stippling Anisocytosis Microcytosis Macrocytosis Spherocytes Pappenheimer Bodies Sickle Cells Target Cells Tear Drop Cells Ovalocytes Stomatocytes Christine-[place] Bodies Echinocytes Acanthocytes (Spur) Rouleaux RBC Agglutinates Schistocytes Sezary Cell PT (9.0-12.0) Seconds INR (0.9-1.1) APTT (21-31) Seconds PTT Ratio VBG pH (7.36-7.41) VBG pCO2 (38-50) mmHg VBG pO2 mmHg VBG HCO3 mmol/L VBG O2 Saturation % VBG Base Excess mEq/L Sodium (136-145) mmol/L Potassium (3.5-5.1) mmol/L Chloride (98-107) mmol/L Carbon Dioxide (21-32) mmol/L Anion Gap (3-11) BUN (6-23) mg/dl Creatinine (0.6-1.2) mg/dl Est Cr Clr Drug Dosing ml/min eGFR BUN/Creatinine Ratio (10-20) Glucose (70-99(Fasting)) mg/dl Lactate (0.4-2.0) mmol/L Calcium (8.6-10.3) mg/dl Magnesium (1.7-2.4) mg/dl Total Bilirubin (0.2-1.0) mg/dl Direct Bilirubin (0-0.2) mg/dl AST (13-39) U/L ALT (7-52) U/L Alkaline Phosphatase (34-104) U/L Troponin I High Sens (0-14) pg/ml Total Protein (6.0-8.3) gm/dl Albumin (3.4-5.0) gm/dl Procalcitonin (0-0.5) ng/ml Urine Color Urine Appearance (Clear) Urine pH (4.5-7.5) Ur Specific [place] (1.000-1.030) Urine Protein (Negative) Urine Glucose (UA) (Negative) Urine Ketones (Negative) Urine Blood (Negative) Urine Nitrite (Negative) Urine Bilirubin (Negative) Urine Urobilinogen (Negative) Ur Leukocyte Esterase (Negative) Adenovirus (PCR) (NotDetected) B. pertussis DNA (PCR) (NotDetected) B.parapertussis DNA PCR (NotDetected) C. pneumoniae DNA (PCR) (NotDetected) Coronavirus OC43 (PCR) (NotDetected) Coronavirus HKU1 (PCR) (NotDetected) Coronavirus 229E (PCR) (NotDetected) SARS-CoV-2 (PCR) (NotDetected) Coronavirus NL63 (PCR) (NotDetected) Human Metapneumovir PCR (NotDetected) Influenza Type A (PCR) (NotDetected) Influenza Type B (PCR) (NotDetected) M. pneumoniae (PCR) (NotDetected) Parainfluenza 1 (PCR) (NotDetected) Parainfluenza 2 (PCR) (NotDetected) Parainfluenza 3 (PCR) (NotDetected) Parainfluenza 4 (PCR) (NotDetected) RSV (PCR) (NotDetected) Entero/Rhino (PCR) (NotDetected) Group A Strep (PCR) (NotDetected) Blood Parasites ID 12/08/24 12/08/24 12/08/24 Range/Units 22:40 22:40 22:40 WBC RBC Hgb Hct MCV MCH MCHC RDW Std Deviation RDW Coeff of Orly Plt Count MPV Immature Gran % (Auto) Neut % (Auto) Lymph % (Auto) 16.3 [place] % (Auto) Cancelled 5.9 Eos % (Auto) Cancelled 6.9 Baso % (Auto) Cancelled Neut # (Auto) Lymph # (Auto) [place] # (Auto) Eos # (Auto) Baso # (Auto) Immature Gran # (Auto) Absolute Nucleated RBC Nucleated RBC % (auto) Neutrophils % (Manual) Band Neutrophils % Lymphocytes % (Manual) Prolymphocyte % Reactive Lymphs % (Man) Monocytes % (Manual) Eosinophils % (Manual) Basophils % (Manual) Metamyelocytes % (Man) Myelocytes % (Man) Promyelocytes % (Man) Blast Cells % (Manual) Plasma Cell % (Manual) Other Cells % Nucleated RBC % Neutrophils # (Manual) Band Neutrophils # Total Absolute Neuts Lymphocytes # (Manual) Prolymphocyte # Reactive Lymphs # Total Abs Lymphocytes Monocytes # (Manual) Eosinophils # (Manual) Basophils # (Manual) Metamyelocytes # (Man) Myelocytes # (Manual) Promyelocytes # (Man) Blast Cells # (Man) Plasma Cell # (Manual) Other Cells # Nucleated RBCs # (Man) Hypersegmented Neuts Hyposegmented Neuts Hypogranular Neuts Large Granular Lymphs # Lrg Granular Lymphs Hairy Cells Smudge Cells Toxic Granulation Toxic Vacuolation Dohle Bodies Sera Rods Platelet Estimate Hypogranular Platelets Giant Platelets Platelet Satelliting RBC Morphology Polychromasia Hypochromasia Poikilocytosis Basophilic Stippling Anisocytosis Microcytosis Macrocytosis Spherocytes Pappenheimer Bodies Sickle Cells Target Cells Tear Drop Cells Ovalocytes Stomatocytes Christine[place] Bodies Echinocytes Acanthocytes (Spur) Rouleaux RBC Agglutinates Schistocytes Sezary Cell PT (9.0-12.0) Seconds INR (0.9-1.1) APTT (21-31) Seconds PTT Ratio VBG pH (7.36-7.41) VBG pCO2 (38-50) mmHg VBG pO2 mmHg VBG HCO3 mmol/L VBG O2 Saturation % VBG Base Excess mEq/L Sodium (136-145) mmol/L Potassium (3.5-5.1) mmol/L Chloride (98-107) mmol/L Carbon Dioxide (21-32) mmol/L Anion Gap (3-11) BUN (6-23) mg/dl Creatinine (0.6-1.2) mg/dl Est Cr Clr Drug Dosing ml/min eGFR BUN/Creatinine Ratio (10-20) Glucose (70-99(Fasting)) mg/dl Lactate (0.4-2.0) mmol/L Calcium (8.6-10.3) mg/dl Magnesium (1.7-2.4) mg/dl Total Bilirubin (0.2-1.0) mg/dl Direct Bilirubin (0-0.2) mg/dl AST (13-39) U/L ALT (7-52) U/L Alkaline Phosphatase (34-104) U/L Troponin I High Sens (0-14) pg/ml Total Protein (6.0-8.3) gm/dl Albumin (3.4-5.0) gm/dl Procalcitonin (0-0.5) ng/ml Urine Color Urine Appearance (Clear) Urine pH (4.5-7.5) Ur Specific [place] (1.000-1.030) Urine Protein (Negative) Urine Glucose (UA) (Negative) Urine Ketones (Negative) Urine Blood (Negative) Urine Nitrite (Negative) Urine Bilirubin (Negative) Urine Urobilinogen (Negative) Ur Leukocyte Esterase (Negative) Adenovirus (PCR) (NotDetected) B. pertussis DNA (PCR) (NotDetected) B.parapertussis DNA PCR (NotDetected) C. pneumoniae DNA (PCR) (NotDetected) Coronavirus OC43 (PCR) (NotDetected) Coronavirus HKU1 (PCR) (NotDetected) Coronavirus 229E (PCR) (NotDetected) SARS-CoV-2 (PCR) (NotDetected) Coronavirus NL63 (PCR) (NotDetected) Human Metapneumovir PCR (NotDetected) Influenza Type A (PCR) (NotDetected) Influenza Type B (PCR) (NotDetected) M. pneumoniae (PCR) (NotDetected) Parainfluenza 1 (PCR) (NotDetected) Parainfluenza 2 (PCR) (NotDetected) Parainfluenza 3 (PCR) (NotDetected) Parainfluenza 4 (PCR) (NotDetected) RSV (PCR) (NotDetected) Entero/Rhino (PCR) (NotDetected) Group A Strep (PCR) (NotDetected) Blood Parasites ID 12/08/24 12/08/24 12/08/24 Range/Units 22:40 22:40 22:40 WBC RBC Hgb Hct MCV MCH MCHC RDW Std Deviation RDW Coeff of Orly Plt Count MPV Immature Gran % (Auto) Neut % (Auto) Lymph % (Auto) [place] % (Auto) Eos % (Auto) Baso % (Auto) 0.7 Neut # (Auto) Cancelled 8.68 H Lymph # (Auto) Cancelled 2.03 [place] # (Auto) Cancelled Eos # (Auto) Baso # (Auto) Immature Gran # (Auto) Absolute Nucleated RBC Nucleated RBC % (auto) Neutrophils % (Manual) Band Neutrophils % Lymphocytes % (Manual) Prolymphocyte % Reactive Lymphs % (Man) Monocytes % (Manual) Eosinophils % (Manual) Basophils % (Manual) Metamyelocytes % (Man) Myelocytes % (Man) Promyelocytes % (Man) Blast Cells % (Manual) Plasma Cell % (Manual) Other Cells % Nucleated RBC % Neutrophils # (Manual) Band Neutrophils # Total Absolute Neuts Lymphocytes # (Manual) Prolymphocyte # Reactive Lymphs # Total Abs Lymphocytes Monocytes # (Manual) Eosinophils # (Manual) Basophils # (Manual) Metamyelocytes # (Man) Myelocytes # (Manual) Promyelocytes # (Man) Blast Cells # (Man) Plasma Cell # (Manual) Other Cells # Nucleated RBCs # (Man) Hypersegmented Neuts Hyposegmented Neuts Hypogranular Neuts Large Granular Lymphs # Lrg Granular Lymphs Hairy Cells Smudge Cells Toxic Granulation Toxic Vacuolation Dohle Bodies Sera Rods Platelet Estimate Hypogranular Platelets Giant Platelets Platelet Satelliting RBC Morphology Polychromasia Hypochromasia Poikilocytosis Basophilic Stippling Anisocytosis Microcytosis Macrocytosis Spherocytes Pappenheimer Bodies Sickle Cells Target Cells Tear Drop Cells Ovalocytes Stomatocytes Christine-[place] Bodies Echinocytes Acanthocytes (Spur) Rouleaux RBC Agglutinates Schistocytes Sezary Cell PT (9.0-12.0) Seconds INR (0.9-1.1) APTT (21-31) Seconds PTT Ratio VBG pH (7.36-7.41) VBG pCO2 (38-50) mmHg VBG pO2 mmHg VBG HCO3 mmol/L VBG O2 Saturation % VBG Base Excess mEq/L Sodium (136-145) mmol/L Potassium (3.5-5.1) mmol/L Chloride (98-107) mmol/L Carbon Dioxide (21-32) mmol/L Anion Gap (3-11) BUN (6-23) mg/dl Creatinine (0.6-1.2) mg/dl Est Cr Clr Drug Dosing ml/min eGFR BUN/Creatinine Ratio (10-20) Glucose (70-99(Fasting)) mg/dl Lactate (0.4-2.0) mmol/L Calcium (8.6-10.3) mg/dl Magnesium (1.7-2.4) mg/dl Total Bilirubin (0.2-1.0) mg/dl Direct Bilirubin (0-0.2) mg/dl AST (13-39) U/L ALT (7-52) U/L Alkaline Phosphatase (34-104) U/L Troponin I High Sens (0-14) pg/ml Total Protein (6.0-8.3) gm/dl Albumin (3.4-5.0) gm/dl Procalcitonin (0-0.5) ng/ml Urine Color Urine Appearance (Clear) Urine pH (4.5-7.5) Ur Specific [place] (1.000-1.030) Urine Protein (Negative) Urine Glucose (UA) (Negative) Urine Ketones (Negative) Urine Blood (Negative) Urine Nitrite (Negative) Urine Bilirubin (Negative) Urine Urobilinogen (Negative) Ur Leukocyte Esterase (Negative) Adenovirus (PCR) (NotDetected) B. pertussis DNA (PCR) (NotDetected) B.parapertussis DNA PCR (NotDetected) C. pneumoniae DNA (PCR) (NotDetected) Coronavirus OC43 (PCR) (NotDetected) Coronavirus HKU1 (PCR) (NotDetected) Coronavirus 229E (PCR) (NotDetected) SARS-CoV-2 (PCR) (NotDetected) Coronavirus NL63 (PCR) (NotDetected) Human Metapneumovir PCR (NotDetected) Influenza Type A (PCR) (NotDetected) Influenza Type B (PCR) (NotDetected) M. pneumoniae (PCR) (NotDetected) Parainfluenza 1 (PCR) (NotDetected) Parainfluenza 2 (PCR) (NotDetected) Parainfluenza 3 (PCR) (NotDetected) Parainfluenza 4 (PCR) (NotDetected) RSV (PCR) (NotDetected) Entero/Rhino (PCR) (NotDetected) Group A Strep (PCR) (NotDetected) Blood Parasites ID 12/08/24 12/08/24 12/08/24 Range/Units 22:40 22:40 22:40 WBC RBC Hgb Hct MCV MCH MCHC RDW Std Deviation RDW Coeff of Orly Plt Count MPV Immature Gran % (Auto) Neut % (Auto) Lymph % (Auto) [place] % (Auto) Eos % (Auto) Baso % (Auto) Neut # (Auto) Lymph # (Auto) [place] # (Auto) 0.73 H Eos # (Auto) Cancelled 0.86 H Baso # (Auto) Cancelled 0.09 Immature Gran # (Auto) Cancelled Absolute Nucleated RBC Nucleated RBC % (auto) Neutrophils % (Manual) Band Neutrophils % Lymphocytes % (Manual) Prolymphocyte % Reactive Lymphs % (Man) Monocytes % (Manual) Eosinophils % (Manual) Basophils % (Manual) Metamyelocytes % (Man) Myelocytes % (Man) Promyelocytes % (Man) Blast Cells % (Manual) Plasma Cell % (Manual) Other Cells % Nucleated RBC % Neutrophils # (Manual) Band Neutrophils # Total Absolute Neuts Lymphocytes # (Manual) Prolymphocyte # Reactive Lymphs # Total Abs Lymphocytes Monocytes # (Manual) Eosinophils # (Manual) Basophils # (Manual) Metamyelocytes # (Man) Myelocytes # (Manual) Promyelocytes # (Man) Blast Cells # (Man) Plasma Cell # (Manual) Other Cells # Nucleated RBCs # (Man) Hypersegmented Neuts Hyposegmented Neuts Hypogranular Neuts Large Granular Lymphs # Lrg Granular Lymphs Hairy Cells Smudge Cells Toxic Granulation Toxic Vacuolation Dohle Bodies Sera Rods Platelet Estimate Hypogranular Platelets Giant Platelets Platelet Satelliting RBC Morphology Polychromasia Hypochromasia Poikilocytosis Basophilic Stippling Anisocytosis Microcytosis Macrocytosis Spherocytes Pappenheimer Bodies Sickle Cells Target Cells Tear Drop Cells Ovalocytes Stomatocytes [place] Bodies Echinocytes Acanthocytes (Spur) Rouleaux RBC Agglutinates Schistocytes Sezary Cell PT (9.0-12.0) Seconds INR (0.9-1.1) APTT (21-31) Seconds PTT Ratio VBG pH (7.36-7.41) VBG pCO2 (38-50) mmHg VBG pO2 mmHg VBG HCO3 mmol/L VBG O2 Saturation % VBG Base Excess mEq/L Sodium (136-145) mmol/L Potassium (3.5-5.1) mmol/L Chloride (98-107) mmol/L Carbon Dioxide (21-32) mmol/L Anion Gap (3-11) BUN (6-23) mg/dl Creatinine (0.6-1.2) mg/dl Est Cr Clr Drug Dosing ml/min eGFR BUN/Creatinine Ratio (10-20) Glucose (70-99(Fasting)) mg/dl Lactate (0.4-2.0) mmol/L Calcium (8.6-10.3) mg/dl Magnesium (1.7-2.4) mg/dl Total Bilirubin (0.2-1.0) mg/dl Direct Bilirubin (0-0.2) mg/dl AST (13-39) U/L ALT (7-52) U/L Alkaline Phosphatase (34-104) U/L Troponin I High Sens (0-14) pg/ml Total Protein (6.0-8.3) gm/dl Albumin (3.4-5.0) gm/dl Procalcitonin (0-0.5) ng/ml Urine Color Urine Appearance (Clear) Urine pH (4.5-7.5) Ur Specific [place] (1.000-1.030) Urine Protein (Negative) Urine Glucose (UA) (Negative) Urine Ketones (Negative) Urine Blood (Negative) Urine Nitrite (Negative) Urine Bilirubin (Negative) Urine Urobilinogen (Negative) Ur Leukocyte Esterase (Negative) Adenovirus (PCR) (NotDetected) B. pertussis DNA (PCR) (NotDetected) B.parapertussis DNA PCR (NotDetected) C. pneumoniae DNA (PCR) (NotDetected) Coronavirus OC43 (PCR) (NotDetected) Coronavirus HKU1 (PCR) (NotDetected) Coronavirus 229E (PCR) (NotDetected) SARS-CoV-2 (PCR) (NotDetected) Coronavirus NL63 (PCR) (NotDetected) Human Metapneumovir PCR (NotDetected) Influenza Type A (PCR) (NotDetected) Influenza Type B (PCR) (NotDetected) M. pneumoniae (PCR) (NotDetected) Parainfluenza 1 (PCR) (NotDetected) Parainfluenza 2 (PCR) (NotDetected) Parainfluenza 3 (PCR) (NotDetected) Parainfluenza 4 (PCR) (NotDetected) RSV (PCR) (NotDetected) Entero/Rhino (PCR) (NotDetected) Group A Strep (PCR) (NotDetected) Blood Parasites ID 12/08/24 12/08/24 12/09/24 Range/Units 22:40 23:05 00:30 WBC RBC Hgb Hct MCV MCH MCHC RDW Std Deviation RDW Coeff of Orly Plt Count MPV Immature Gran % (Auto) Neut % (Auto) Lymph % (Auto) [place] % (Auto) Eos % (Auto) Baso % (Auto) Neut # (Auto) Lymph # (Auto) [place] # (Auto) Eos # (Auto) Baso # (Auto) Immature Gran # (Auto) 0.04 Absolute Nucleated RBC Cancelled Nucleated RBC % (auto) Cancelled Neutrophils % (Manual) Cancelled Band Neutrophils % Cancelled Lymphocytes % (Manual) Cancelled Prolymphocyte % Cancelled Reactive Lymphs % (Man) Cancelled Monocytes % (Manual) Cancelled Eosinophils % (Manual) Cancelled Basophils % (Manual) Cancelled Metamyelocytes % (Man) Cancelled Myelocytes % (Man) Cancelled Promyelocytes % (Man) Cancelled Blast Cells % (Manual) Cancelled Plasma Cell % (Manual) Cancelled Other Cells % Cancelled Nucleated RBC % Cancelled Neutrophils # (Manual) Cancelled Band Neutrophils # Cancelled Total Absolute Neuts Cancelled Lymphocytes # (Manual) Cancelled Prolymphocyte # Cancelled Reactive Lymphs # Cancelled Total Abs Lymphocytes Cancelled Monocytes # (Manual) Cancelled Eosinophils # (Manual) Cancelled Basophils # (Manual) Cancelled Metamyelocytes # (Man) Cancelled Myelocytes # (Manual) Cancelled Promyelocytes # (Man) Cancelled Blast Cells # (Man) Cancelled Plasma Cell # (Manual) Cancelled Other Cells # Cancelled Nucleated RBCs # (Man) Cancelled Hypersegmented Neuts Cancelled Hyposegmented Neuts Cancelled Hypogranular Neuts Cancelled Large Granular Lymphs Cancelled # Lrg Granular Lymphs Cancelled Hairy Cells Cancelled Smudge Cells Cancelled Toxic Granulation Cancelled Toxic Vacuolation Cancelled Dohle Bodies Cancelled Sera Rods Cancelled Platelet Estimate Cancelled Hypogranular Platelets Cancelled Giant Platelets Cancelled Platelet Satelliting Cancelled RBC Morphology Cancelled Polychromasia Cancelled Hypochromasia Cancelled Poikilocytosis Cancelled Basophilic Stippling Cancelled Anisocytosis Cancelled Microcytosis Cancelled Macrocytosis Cancelled Spherocytes Cancelled Pappenheimer Bodies Cancelled Sickle Cells Cancelled Target Cells Cancelled Tear Drop Cells Cancelled Ovalocytes Cancelled Stomatocytes Cancelled [place] Bodies Cancelled Echinocytes Cancelled Acanthocytes (Spur) Cancelled Rouleaux Cancelled RBC Agglutinates Cancelled Schistocytes Cancelled Sezary Cell Cancelled PT 10.3 (9.0-12.0) Seconds INR 0.9 (0.9-1.1) APTT 24 (21-31) Seconds PTT Ratio 0.9 VBG pH 7.38 (7.36-7.41) VBG pCO2 43 (38-50) mmHg VBG pO2 38 mmHg VBG HCO3 25 mmol/L VBG O2 Saturation 69.1 % VBG Base Excess 0 mEq/L Sodium 141 (136-145) mmol/L Potassium 3.7 (3.5-5.1) mmol/L Chloride 108 H (98-107) mmol/L Carbon Dioxide 28 (21-32) mmol/L Anion Gap 5 (3-11) BUN 15 (6-23) mg/dl Creatinine 1.12 (0.6-1.2) mg/dl Est Cr Clr Drug Dosing 49.1 ml/min eGFR 57.00 BUN/Creatinine Ratio 13.4 (10-20) Glucose 104 H (70-99(Fasting)) mg/dl Lactate 1.4 (0.4-2.0) mmol/L Calcium 8.9 (8.6-10.3) mg/dl Magnesium 1.9 (1.7-2.4) mg/dl Total Bilirubin 0.6 (0.2-1.0) mg/dl Direct Bilirubin 0.1 (0-0.2) mg/dl AST 14 (13-39) U/L ALT 12 (7-52) U/L Alkaline Phosphatase 109 H (34-104) U/L Troponin I High Sens < 2.3 (0-14) pg/ml Total Protein 7.3 (6.0-8.3) gm/dl Albumin 4.2 (3.4-5.0) gm/dl Procalcitonin 0.02 (0-0.5) ng/ml Urine Color Yellow Urine Appearance Clear (Clear) Urine pH 6.0 (4.5-7.5) Ur Specific [place] > 1.045 H (1.000-1.030) Urine Protein Negative (Negative) Urine Glucose (UA) Negative (Negative) Urine Ketones Negative (Negative) Urine Blood Negative (Negative) Urine Nitrite Negative (Negative) Urine Bilirubin Negative (Negative) Urine Urobilinogen Negative (Negative) Ur Leukocyte Esterase Negative (Negative) Adenovirus (PCR) (NotDetected) B. pertussis DNA (PCR) (NotDetected) B.parapertussis DNA PCR (NotDetected) C. pneumoniae DNA (PCR) (NotDetected) Coronavirus OC43 (PCR) (NotDetected) Coronavirus HKU1 (PCR) (NotDetected) Coronavirus 229E (PCR) (NotDetected) SARS-CoV-2 (PCR) (NotDetected) Coronavirus NL63 (PCR) (NotDetected) Human Metapneumovir PCR (NotDetected) Influenza Type A (PCR) (NotDetected) Influenza Type B (PCR) (NotDetected) M. pneumoniae (PCR) (NotDetected) Parainfluenza 1 (PCR) (NotDetected) Parainfluenza 2 (PCR) (NotDetected) Parainfluenza 3 (PCR) (NotDetected) Parainfluenza 4 (PCR) (NotDetected) RSV (PCR) (NotDetected) Entero/Rhino (PCR) (NotDetected) Group A Strep (PCR) (NotDetected) Blood Parasites ID Cancelled Imaging Data Attestation: I personally reviewed and interpreted this imaging study as follows: Radiologist's Impression: Chest CTA 12/08/24 22:09 Exam(s): CTA CHEST IV Amt: 119ML OPTIRAY 320 EXAM: CT Angiography Chest With Intravenous Contrast CLINICAL HISTORY: Reason for exam: PE, recent breast OR. TECHNIQUE: Axial computed tomographic angiography images of the chest with intravenous contrast. Automated exposure control was utilized for the study. A dose lowering technique was utilized adhering to the principles of ALARA. MIP reconstructed images were created and reviewed. COMPARISON: 11/30/2022 FINDINGS: Pulmonary arteries: No pulmonary embolism is seen. Aorta: No thoracic aortic aneurysm. Lungs: No consolidation. There is a 7 mm nodule noted left lower lobe (series 3, image 40). There is a 6 mm nodule noted in the right lower lobe (series 3, image 43). Pleural space: No significant effusion. No pneumothorax. Heart: The heart is normal in size.. Bones/joints: There are degenerative changes in the spine.. Soft tissues: Unremarkable. Lymph nodes: No enlarged lymph nodes. IMPRESSION: No pulmonary embolism is seen. There are small bilateral pulmonary nodules. These are of unknown etiology. These were not definitely seen on previous exam. Recommend follow-up as prescribed by the [employer]. Electronically signed by: Rocco Pacheco MD 12/09/24 01:44 AM Chest X-Ray 12/08/24 22:09 Exam(s): XR CXR 1 VIEW EXAM: XR Chest, 1 View CLINICAL HISTORY: Reason for exam: Sepsis. TECHNIQUE: Frontal view of the chest. COMPARISON: 08/14/2022. FINDINGS: Lungs: There are linear densities noted the lung bases. No consolidation. Pleural space: No pleural effusion is seen. No pneumothorax. Heart: The heart is normal in size.. Mediastinum: There is mild uncoiling of thoracic aorta.. Bones/joints: There are degenerative changes in the spine.. IMPRESSION: There is some mild scarring and/or atelectasis noted the lung bases. Electronically signed by: Rocco Pacheco MD 12/09/24 01:51 AM Soft Tissue Neck CT 12/08/24 22:09 Exam(s): CT NECK SOFT TISSUE With Contrast IV Amt: OPTIRAY 320 119ML EXAM: CT Neck With Intravenous Contrast CLINICAL HISTORY: Reason for exam: ST, low O2. TECHNIQUE: Axial computed tomography images of the neck with intravenous contrast. CTDI is 26.39 mGy and DLP is 819.22 mGy-cm. Automated exposure control was utilized for the study. A dose lowering technique was utilized adhering to the principles of ALARA. CONTRAST: Patient received OPTIRAY 320 119ML of IV contrast COMPARISON: No relevant prior studies available. FINDINGS: Oropharynx: No significant tonsillar enlargement. No peritonsillar abscess. Hypopharynx: Unremarkable. Larynx: Unremarkable epiglottis. Trachea: Unremarkable. Retropharyngeal space: Unremarkable. Submandibular/parotid glands: Glands are normal in size. Thyroid: There is a 4 mm lucency noted in the left lobe of the thyroid gland.. Bones/joints: There are degenerative changes in the cervical spine.. Soft tissues: Unremarkable. Vasculature: No acute findings. Lymph nodes: There are small bilateral cervical lymph nodes.. Lung apices: Unremarkable as visualized. Sinuses: There is mucoperiosteal thickening in the maxillary, ethmoid, sphenoid and frontal sinuses. IMPRESSION: There is a possible 4 mm nodule in the left lobe of the thyroid gland. There are small cervical lymph nodes noted of uncertain clinical significance. There are degenerative changes in the cervical spine. There is paranasal sinus disease. Electronically signed by: Rocco Pacheco MD 12/09/24 01:37 AM [facility] Narrative Prior records/ancillary studies reviewed. Triage Nursing notes reviewed. Additional history obtained from the family. The patient's history was concerning for respiratory difficulties. Differential diagnosis: Etiologies such as infections, reactive airway disease, pneumonia, pneumothorax, COPD, CHF, cardiac ischemia, pulmonary embolism, musculoskeletal, gastrointestinal, as well as others were entertained. Physical examination: As above. ER treatment provided: An order was placed for continuous cardiac monitoring. The monitor shows a rate of 60-100 with a sinus rhythm per my interpretation. Nebulizer, Solu-Medrol, Zosyn On reassessment the patient felt better. Diagnostic interpretation by me: The electrocardiogram was ordered for SOB. ECG: Normal sinus, left-ventricular fascicular block, no acute ST-T wave changes, rate of 97. Impression normal sinus rhythm left anterior fascicular block independently interpreted by myself The labs Independently Interpreted by myself revealed leukocytosis, stable H&H Negative lactate, negative procalcitonin, negative troponin Positive rhinovirus, negative strep test Imaging studies: Imaging was reviewed and read by radiology Consultation: A consultation was placed with the hospitalist. The case was discussed and diagnostics were reviewed. The patient was evaluated in the ER for further treatment. This appears to be consistent with bronchitis with respiratory failure. Patient sats were in the 80s. She did require oxygen. Upon initial evaluation patient appeared quite short of breath and she was immediately sent down for CTA for recent breast surgery for possible PE. She was given nebulizers Solu-Medrol and antibiotics for possible pneumonia also. She was reassessed multiple times. Blood cultures are pending. Negative lactic. She is agreeable to treatment plan of admission. Medicine was consulted and the case was discussed.. By the evaluation outlined above emergent etiologies such as CHF, cardiac ischemia, pulmonary embolism, pneumonia, pneumothorax, musculoskeletal, serious bacterial infections, as well as others were deemed relatively unlikely. The pt informed about the findings as listed above. All questions were answered and pleased with the treatment. condition. The chart was completed utilizing [employer] Speech voice recognition software. Grammatical errors, random word insertions, pronoun errors, and incomplete sentences are an occassional consequence of this system due to software limitations, ambient noise, and hardware issues. Any formal questions or concerns about the content, text, or information contained within the body of this dictation should be directly addressed to the physician assistant manager/embalmer for clarification. Impression & Plan Acute bronchitis due to Rhinovirus, Hypoxemia Discharge Plan Visit Data Chief Complaint: Shortness of Breath/Dyspnea Stated Complaint: SOB, COUGH ED Provider: Pipo [facility] ED Midlevel Provider: Rachel Maria Discharge Problem: Acute bronchitis due to Rhinovirus, Hypoxemia Patient Disposition: Admitted As Inpatient Condition: Good Forms Stand Alone Forms: [facility] Prescriptions Prescriptions: No Action pantoprazole [Protonix] 40 mg tablet,delayed release (DR/EC) 40 mg PO QAM atorvastatin [Lipitor] 40 mg tablet 40 mg PO QAM Align (B.infantis) 4 mg Capsule 4 mg PO 3XWK Rx Instructions: take 3- times per week Referrals Referrals: Norma Lujan [Primary Care Provider] -
[2024-12-09] MEDS: ALBUT/IPRATROP 3MG/0.5MG NEB 3 ML VIAL NEB STA (01:36)
[2024-12-09] MEDS: ACETAMINOPHEN 1,000 MG/100 ML VIAL IV STA (01:36)
--- NOTE | 2024-12-09 01:38 | CT Scan Report ---
Exam(s): CT NECK SOFT TISSUE With Contrast IV Amt: OPTIRAY 320 119ML EXAM: CT Neck With Intravenous Contrast CLINICAL HISTORY: Reason for exam: ST, low O2. TECHNIQUE: Axial computed tomography images of the neck with intravenous contrast. CTDI is 26.39 mGy and DLP is 819.22 mGy-cm. Automated exposure control was utilized for the study. A dose lowering technique was utilized adhering to the principles of ALARA. CONTRAST: Patient received OPTIRAY 320 119ML of IV contrast COMPARISON: No relevant prior studies available. FINDINGS: Oropharynx: No significant tonsillar enlargement. No peritonsillar abscess. Hypopharynx: Unremarkable. Larynx: Unremarkable epiglottis. Trachea: Unremarkable. Retropharyngeal space: Unremarkable. Submandibular/parotid glands: Glands are normal in size. Thyroid: There is a 4 mm lucency noted in the left lobe of the thyroid gland.. Bones/joints: There are degenerative changes in the cervical spine.. Soft tissues: Unremarkable. Vasculature: No acute findings. Lymph nodes: There are small bilateral cervical lymph nodes.. Lung apices: Unremarkable as visualized. Sinuses: There is mucoperiosteal thickening in the maxillary, ethmoid, sphenoid and frontal sinuses. IMPRESSION: There is a possible 4 mm nodule in the left lobe of the thyroid gland. There are small cervical lymph nodes noted of uncertain clinical significance. There are degenerative changes in the cervical spine. There is paranasal sinus disease. Electronically signed by: Rocco Pacheco MD 12/09/24 01:37 AM
--- NOTE | 2024-12-09 01:45 | CT Scan Report ---
Exam(s): CTA CHEST IV Amt: 119ML OPTIRAY 320 EXAM: CT Angiography Chest With Intravenous Contrast CLINICAL HISTORY: Reason for exam: PE, recent breast OR. TECHNIQUE: Axial computed tomographic angiography images of the chest with intravenous contrast. Automated exposure control was utilized for the study. A dose lowering technique was utilized adhering to the principles of ALARA. MIP reconstructed images were created and reviewed. COMPARISON: 11/30/2022 FINDINGS: Pulmonary arteries: No pulmonary embolism is seen. Aorta: No thoracic aortic aneurysm. Lungs: No consolidation. There is a 7 mm nodule noted left lower lobe (series 3, image 40). There is a 6 mm nodule noted in the right lower lobe (series 3, image 43). Pleural space: No significant effusion. No pneumothorax. Heart: The heart is normal in size.. Bones/joints: There are degenerative changes in the spine.. Soft tissues: Unremarkable. Lymph nodes: No enlarged lymph nodes. IMPRESSION: No pulmonary embolism is seen. There are small bilateral pulmonary nodules. These are of unknown etiology. These were not definitely seen on previous exam. Recommend follow-up as prescribed by the [employer]. Electronically signed by: Rocco Pacheco MD 12/09/24 01:44 AM
--- NOTE | 2024-12-09 01:52 | XRay Report ---
Exam(s): XR CXR 1 VIEW EXAM: XR Chest, 1 View CLINICAL HISTORY: Reason for exam: Sepsis. TECHNIQUE: Frontal view of the chest. COMPARISON: 08/14/2022. FINDINGS: Lungs: There are linear densities noted the lung bases. No consolidation. Pleural space: No pleural effusion is seen. No pneumothorax. Heart: The heart is normal in size.. Mediastinum: There is mild uncoiling of thoracic aorta.. Bones/joints: There are degenerative changes in the spine.. IMPRESSION: There is some mild scarring and/or atelectasis noted the lung bases. Electronically signed by: Rocco Pacheco MD 12/09/24 01:51 AM
--- NOTE | 2024-12-09 02:31 | History & Physical Report ---
Date of Service December 09, 2024 Assessment & Plan (1) Acute hypoxic respiratory failure: (2) Rhinovirus infection: (3) Status post breast reduction: (4) GERD (gastroesophageal reflux disease): (5) Hyperlipidemia: Plan 59-year-old female with history of GERD, hyperlipidemia, recent breast reduction surgery performed on 11/21/2024 presenting with 1 day of URI symptoms, shortness of breath. Acute hypoxic respiratory failure in the ER with saturation of 87% on room air. Supplemental oxygen now with 95% on 2 L. No underlying lung disease. No use of home oxygen. #Acute hypoxic respiratory failure/rhinovirus infection adequate oxygenation on 2 L nasal cannula Observation to medical Continue supplemental oxygen as needed Tylenol as needed Mucinex twice daily Albuterol neb every 2 hours as needed #Status post breast reduction CT a negative for PE Wound care as needed #GERD chronic, stable Continue Protonix 40 mg p.o. every morning #Hyperlipidemiachronic, stable Continue atorvastatin 40 mg p.o. every morning History of Present Illness Chief Complaint: shortness of breath Primary Care Provider: Norma Lujan Marilee Chao is a 59-year-old female with history of hyperlipidemia and GERD presenting with URI symptoms ongoing for the last 2 days. Patient reports she went to bed on 12/07 with a scratchy throat and woke up with a sore throat on. Throughout the day she has had persistently worsening symptoms. Cough occasionally productive as well as chest tightness, chills and shortness of breath. She reports she came up the stairs from her basement and was unable to catch her breath. Her uses supplemental oxygen. Patient brought it and was using it at home with some improvement. She was taking Tylenol and Mucinex as well with some improvement. In the ER she is afebrile, tachycardic, hypoxic to 87% on room air. Supplemental oxygen in place. Presently 95% on 2 L nasal cannula Allergies Allergy/AdvReac Type Severity Reaction Status Date / Time No Known Allergies Allergy Verified 11/21/24 06:17 Home Medications Medication Instructions Recorded Confirmed Type atorvastatin 40 mg tablet (Lipitor) 40 mg PO QAM 07/30/21 11/21/24 History pantoprazole 40 mg tablet,delayed 40 mg PO QAM 07/30/21 11/21/24 History release (Protonix) Bifidobacterium infantis 4 mg 4 mg PO 3XWK 09/01/22 11/21/24 History capsule (Align (B.infantis)) Past Med/Surg History Problem List (Updated 12/09/24 @ 03:46 by Fabi Henderson DO) Rhinovirus infection Acute hypoxic respiratory failure Hypoxemia (Acute) Acute bronchitis due to Rhinovirus (Acute) Status post breast reduction Macromastia Abscess of sigmoid colon Fistula (Acute) Sepsis (Acute) Abdominal infection (Acute) Bowel perforation (Acute) Hyperkalemia Lactate blood increase Bowel perforation Colon cancer screening Sebaceous cyst Lipoma of lower extremity Ischemic colitis GERD (gastroesophageal reflux disease) Hiatal hernia Endometriosis DVT prophylaxis BRBPR (bright red blood per rectum) Abdominal pain (Acute) Diverticulosis of colon Lung nodules Hyperlipidemia Former heavy tobacco smoker Vomiting and diarrhea (Acute) Vomiting and diarrhea (Acute) Vomiting and diarrhea (Acute) Colitis (Acute) Medical History GERD (gastroesophageal reflux disease) Hiatal hernia History of COVID-19 04/29/22, home test, not hosp; fever for 36 hrs, flu-like symptoms>resolved. 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; pt unaware of echo prior to Surgical History Hx of bladder repair surgery bladder tacking S/P excision of lipoma (08/25/21) Left Lower Extremity Lipoma Excision, Upper Back Cyst Excision(Left) - Darius Perez DO 08/25/2021 History of History of wisdom tooth extraction History of laparoscopy History of total abdominal hysterectomy and bilateral salpingo-oophorectomy History of colonoscopy (2022) 2022, got bowel perforation during this scope, spent "a lot of time in hospitals following and no sx required" Family History Sister Breast cancer Mother Hypertension Other No family history of adverse response to anesthesia Social History Smoking Status: Former smoker Tobacco Type: Cigarettes packs per day: 1.5; Second Hand Exposure: Yes (hx as child); Do You Dip or Chew Tobacco: No; Hx Alcohol Use: No Hx Substance Use: Yes Last Used Substance Other:: remote hx Preferred Language: Greek Communication Ability: Effective 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 Beliefs That Will Affect Care: None marital status: Current Living Situation: Spouse current occupational status: employed 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 How many Children do You have: 2 Feels Safe at Home: Yes during the past year weight has: remained stable Assistive Devices: Glasses Review of Systems Review of Systems: All systems reviewed & are unremarkable except as noted in HPI & below Physical Exam Physical Exam: General: patient resting comfortably, NAD, non-toxic in appearance, AA&O x 4 Skin: warm, dry, intact, no rashes or lesions HEENT: NC/AT, PERRL, EOMI, anicteric sclera, conjunctiva without injection, external ear normal to inspection and nontender, nares patent, moist mucus membranes, dentition intact, no oropharyngeal lesions, neck supple, trachea midline, no LAD, no thyromegaly, no JVD Heart: +S1/S2, regular, no m/r/g Lungs: equal air entry bilaterally, no rales/rhonchi/wheezes Abd: +BS, soft, NT/ND, no masses/organomegaly/ascites Ext: warm, 2+ pulses in UE/LE bilaterally, no clubbing/cyanosis or edema Neuro: nonfocal, patient AA&O x 4, speech intact, no facial droop, moving all extremities on command with equal strength 5/5 Results & Data Results & Data Vital Signs (Past 12 Hours) Vital Signs Temp Pulse Resp BP Pulse Ox O2 Del Method O2 Flow Rate 12/09/24 01:59 105 H 12/08/24 23:47 98 H 23 160/104 H 95 Nasal Cannula 2 12/08/24 23:40 99 H 17 169/98 H 95 Nasal Cannula 2 12/08/24 23:00 91 H 22 166/95 H 100 Nebulizer 8 12/08/24 22:57 98 H 18 179/107 H 93 Nasal Cannula 2 12/08/24 22:45 Room Air 88 12/08/24 22:45 90 16 94 Nasal Cannula 2 12/08/24 22:40 96 H 16 94 Nasal Cannula 2 12/08/24 22:39 88 L Nasal Cannula 0 12/08/24 22:33 98 H 17 91 Room Air 12/08/24 22:07 98 H 12/08/24 21:56 36.1 C L 100 H 26 H 169/81 H 87 L Room Air Laboratory Results Laboratory Results WBC 12.43 K/ul (4.8-10.8) H 12/08/24 22:40 WBC Cancelled 12/08/24 22:40 RBC 4.69 M/uL (4.20-5.40) 12/08/24 22:40 RBC Cancelled 12/08/24 22:40 Hgb 13.7 g/dl (12.0-16.0) 12/08/24 22:40 Hgb Cancelled 12/08/24 22:40 Hct 40.5 % (37.0-47.0) 12/08/24 22:40 Hct Cancelled 12/08/24 22:40 MCV 86.4 fL (80.0-100.0) 12/08/24 22:40 MCV Cancelled 12/08/24 22:40 MCH 29.2 pg (25.0-34.0) 12/08/24 22:40 MCH Cancelled 12/08/24 22:40 MCHC 33.8 g/dL (32.0-36.0) 12/08/24 22:40 MCHC Cancelled 12/08/24 22:40 RDW Std Deviation 40.0 fL (36.4-46.3) 12/08/24 22:40 RDW Std Deviation Cancelled 12/08/24 22:40 RDW Coeff of Orly 12.9 % (11.5-14.5) 12/08/24 22:40 RDW Coeff of Orly Cancelled 12/08/24 22:40 Plt Count 313 K/uL (130-400) 12/08/24 22:40 Plt Count Cancelled 12/08/24 22:40 MPV 10.4 fL (9.4-12.4) 12/08/24 22:40 MPV Cancelled 12/08/24 22:40 Immature Gran % (Auto) 0.3 % 12/08/24 22:40 Immature Gran % (Auto) Cancelled 12/08/24 22:40 Neut % (Auto) 69.9 % 12/08/24 22:40 Neut % (Auto) Cancelled 12/08/24 22:40 Lymph % (Auto) 16.3 % 12/08/24 22:40 Lymph % (Auto) Cancelled 12/08/24 22:40 [place] % (Auto) 5.9 % 12/08/24 22:40 [place] % (Auto) Cancelled 12/08/24 22:40 Eos % (Auto) 6.9 % 12/08/24 22:40 Eos % (Auto) Cancelled 12/08/24 22:40 Baso % (Auto) 0.7 % 12/08/24 22:40 Baso % (Auto) Cancelled 12/08/24 22:40 Neut # (Auto) 8.68 K/uL (1.40-6.50) H 12/08/24 22:40 Neut # (Auto) Cancelled 12/08/24 22:40 Lymph # (Auto) 2.03 K/uL (1.20-3.40) 12/08/24 22:40 Lymph # (Auto) Cancelled 12/08/24 22:40 [place] # (Auto) 0.73 K/uL (0.11-0.59) H 12/08/24 22:40 [place] # (Auto) Cancelled 12/08/24 22:40 Eos # (Auto) 0.86 K/uL (0.00-0.50) H 12/08/24 22:40 Eos # (Auto) Cancelled 12/08/24 22:40 Baso # (Auto) 0.09 K/uL (0.00-0.20) 12/08/24 22:40 Baso # (Auto) Cancelled 12/08/24 22:40 Immature Gran # (Auto) 0.04 K/uL (0.01-0.20) 12/08/24 22:40 Immature Gran # (Auto) Cancelled 12/08/24 22:40 Absolute Nucleated RBC Cancelled 12/08/24 22:40 Nucleated RBC % (auto) Cancelled 12/08/24 22:40 Neutrophils % (Manual) Cancelled 12/08/24 22:40 Band Neutrophils % Cancelled 12/08/24 22:40 Lymphocytes % (Manual) Cancelled 12/08/24 22:40 Prolymphocyte % Cancelled 12/08/24 22:40 Reactive Lymphs % (Man) Cancelled 12/08/24 22:40 Monocytes % (Manual) Cancelled 12/08/24 22:40 Eosinophils % (Manual) Cancelled 12/08/24 22:40 Basophils % (Manual) Cancelled 12/08/24 22:40 Metamyelocytes % (Man) Cancelled 12/08/24 22:40 Myelocytes % (Man) Cancelled 12/08/24 22:40 Promyelocytes % (Man) Cancelled 12/08/24 22:40 Blast Cells % (Manual) Cancelled 12/08/24 22:40 Plasma Cell % (Manual) Cancelled 12/08/24 22:40 Other Cells % Cancelled 12/08/24 22:40 Nucleated RBC % Cancelled 12/08/24 22:40 Neutrophils # (Manual) Cancelled 12/08/24 22:40 Band Neutrophils # Cancelled 12/08/24 22:40 Total Absolute Neuts Cancelled 12/08/24 22:40 Lymphocytes # (Manual) Cancelled 12/08/24 22:40 Prolymphocyte # Cancelled 12/08/24 22:40 Reactive Lymphs # Cancelled 12/08/24 22:40 Total Abs Lymphocytes Cancelled 12/08/24 22:40 Monocytes # (Manual) Cancelled 12/08/24 22:40 Eosinophils # (Manual) Cancelled 12/08/24 22:40 Basophils # (Manual) Cancelled 12/08/24 22:40 Metamyelocytes # (Man) Cancelled 12/08/24 22:40 Myelocytes # (Manual) Cancelled 12/08/24 22:40 Promyelocytes # (Man) Cancelled 12/08/24 22:40 Blast Cells # (Man) Cancelled 12/08/24 22:40 Plasma Cell # (Manual) Cancelled 12/08/24 22:40 Other Cells # Cancelled 12/08/24 22:40 Nucleated RBCs # (Man) Cancelled 12/08/24 22:40 Hypersegmented Neuts Cancelled 12/08/24 22:40 Hyposegmented Neuts Cancelled 12/08/24 22:40 Hypogranular Neuts Cancelled 12/08/24 22:40 Large Granular Lymphs Cancelled 12/08/24 22:40 # Lrg Granular Lymphs Cancelled 12/08/24 22:40 Hairy Cells Cancelled 12/08/24 22:40 Smudge Cells Cancelled 12/08/24 22:40 Toxic Granulation Cancelled 12/08/24 22:40 Toxic Vacuolation Cancelled 12/08/24 22:40 Dohle Bodies Cancelled 12/08/24 22:40 Sera Rods Cancelled 12/08/24 22:40 Platelet Estimate Cancelled 12/08/24 22:40 Hypogranular Platelets Cancelled 12/08/24 22:40 Giant Platelets Cancelled 12/08/24 22:40 Platelet Satelliting Cancelled 12/08/24 22:40 RBC Morphology Cancelled 12/08/24 22:40 Polychromasia Cancelled 12/08/24 22:40 Hypochromasia Cancelled 12/08/24 22:40 Poikilocytosis Cancelled 12/08/24 22:40 Basophilic Stippling Cancelled 12/08/24 22:40 Anisocytosis Cancelled 12/08/24 22:40 Microcytosis Cancelled 12/08/24 22:40 Macrocytosis Cancelled 12/08/24 22:40 Spherocytes Cancelled 12/08/24 22:40 Pappenheimer Bodies Cancelled 12/08/24 22:40 Sickle Cells Cancelled 12/08/24 22:40 Target Cells Cancelled 12/08/24 22:40 Tear Drop Cells Cancelled 12/08/24 22:40 Ovalocytes Cancelled 12/08/24 22:40 Stomatocytes Cancelled 12/08/24 22:40 [place] Bodies Cancelled 12/08/24 22:40 Echinocytes Cancelled 12/08/24 22:40 Acanthocytes (Spur) Cancelled 12/08/24 22:40 Rouleaux Cancelled 12/08/24 22:40 RBC Agglutinates Cancelled 12/08/24 22:40 Schistocytes Cancelled 12/08/24 22:40 Sezary Cell Cancelled 12/08/24 22:40 PT 10.3 Seconds (9.0-12.0) 12/08/24 22:40 INR 0.9 (0.9-1.1) 12/08/24 22:40 APTT 24 Seconds (21-31) 12/08/24 22:40 PTT Ratio 0.9 12/08/24 22:40 VBG pH 7.38 (7.36-7.41) 12/08/24 23:05 VBG pCO2 43 mmHg (38-50) 12/08/24 23:05 VBG pO2 38 mmHg 12/08/24 23:05 VBG HCO3 25 mmol/L 12/08/24 23:05 VBG O2 Saturation 69.1 % 12/08/24 23:05 VBG Base Excess 0 mEq/L 12/08/24 23:05 Sodium 141 mmol/L (136-145) 12/08/24 22:40 Potassium 3.7 mmol/L (3.5-5.1) 12/08/24 22:40 Chloride 108 mmol/L (98-107) H 12/08/24 22:40 Carbon Dioxide 28 mmol/L (21-32) 12/08/24 22:40 Anion Gap 5 (3-11) 12/08/24 22:40 BUN 15 mg/dl (6-23) 12/08/24 22:40 Creatinine 1.12 mg/dl (0.6-1.2) 12/08/24 22:40 Est Cr Clr Drug Dosing 49.1 ml/min 12/08/24 22:40 eGFR 57.00 12/08/24 22:40 BUN/Creatinine Ratio 13.4 (10-20) 12/08/24 22:40 Glucose 104 mg/dl (70-99(Fasting)) H 12/08/24 22:40 Lactate 1.4 mmol/L (0.4-2.0) 12/08/24 22:40 Calcium 8.9 mg/dl (8.6-10.3) 12/08/24 22:40 Magnesium 1.9 mg/dl (1.7-2.4) 12/08/24 22:40 Total Bilirubin 0.6 mg/dl (0.2-1.0) 12/08/24 22:40 Direct Bilirubin 0.1 mg/dl (0-0.2) 12/08/24 22:40 AST 14 U/L (13-39) 12/08/24 22:40 ALT 12 U/L (7-52) 12/08/24 22:40 Alkaline Phosphatase 109 U/L (34-104) H 12/08/24 22:40 Troponin I High Sens < 2.3 pg/ml (0-14) 12/08/24 22:40 Total Protein 7.3 gm/dl (6.0-8.3) 12/08/24 22:40 Albumin 4.2 gm/dl (3.4-5.0) 12/08/24 22:40 Procalcitonin 0.02 ng/ml (0-0.5) 12/08/24 22:40 Urine Color Yellow 12/09/24 00:30 Urine Appearance Clear (Clear) 12/09/24 00:30 Urine pH 6.0 (4.5-7.5) 12/09/24 00:30 Ur Specific [place] > 1.045 (1.000-1.030) H 12/09/24 00:30 Urine Protein Negative (Negative) 12/09/24 0030 Urine Glucose (UA) Negative (Negative) 12/09/24 00 Urine Ketones Negative (Negative) 12/09/24 00:30 Urine Blood Negative (Negative) 12/09/24 00:30 Urine Nitrite Negative (Negative) 12/09/24 00:30 Urine Bilirubin Negative (Negative) 12/09/24 00 Urine Urobilinogen Negative (Negative) 12/09/24 00:30 Ur Leukocyte Esterase Negative (Negative) 12/09/24 00:30 Adenovirus (PCR) Not Detected (NotDetected) 12/08/24 22:14 B. pertussis DNA (PCR) Not Detected (NotDetected) 12/08/24 22:14 B.parapertussis DNA PCR Not Detected (NotDetected) 12/08/24 22:14 C. pneumoniae DNA (PCR) Not Detected (NotDetected) 12/08/24 22:14 Coronavirus OC43 (PCR) Not Detected (NotDetected) 12/08/24 22:14 Coronavirus HKU1 (PCR) Not Detected (NotDetected) 12/08/24 22:14 Coronavirus 229E (PCR) Not Detected (NotDetected) 12/08/24 22:14 SARS-CoV-2 (PCR) Not Detected (NotDetected) 12/08/24 22:14 Coronavirus NL63 (PCR) Not Detected (NotDetected) 12/08/24 22:14 Human Metapneumovir PCR Not Detected (NotDetected) 12/08/24 22:14 Influenza Type A (PCR) Not Detected (NotDetected) 12/08/24 22:14 Influenza Type B (PCR) Not Detected (NotDetected) 12/08/24 22:14 M. pneumoniae (PCR) Not Detected (NotDetected) 12/08/24 22:14 Parainfluenza 1 (PCR) Not Detected (NotDetected) 12/08/24 22:14 Parainfluenza 2 (PCR) Not Detected (NotDetected) 12/08/24 22:14 Parainfluenza 3 (PCR) Not Detected (NotDetected) 12/08/24 22:14 Parainfluenza 4 (PCR) Not Detected (NotDetected) 12/08/24 22:14 RSV (PCR) Not Detected (NotDetected) 12/08/24 22:14 Entero/Rhino (PCR) DETECTED (NotDetected) A 12/08/24 22:14 Group A Strep (PCR) NOT DETECTED (NotDetected) 12/08/24 22:14 Blood Parasites ID Cancelled 12/08/24 22:40 Impressions Chest CTA 12/08/24 22:09 Exam(s): CTA CHEST IV Amt: 119ML OPTIRAY 320 EXAM: CT Angiography Chest With Intravenous Contrast CLINICAL HISTORY: Reason for exam: PE, recent breast OR. TECHNIQUE: Axial computed tomographic angiography images of the chest with intravenous contrast. Automated exposure control was utilized for the study. A dose lowering technique was utilized adhering to the principles of ALARA. MIP reconstructed images were created and reviewed. COMPARISON: 11/30/2022 FINDINGS: Pulmonary arteries: No pulmonary embolism is seen. Aorta: No thoracic aortic aneurysm. Lungs: No consolidation. There is a 7 mm nodule noted left lower lobe (series 3, image 40). There is a 6 mm nodule noted in the right lower lobe (series 3, image 43). Pleural space: No significant effusion. No pneumothorax. Heart: The heart is normal in size.. Bones/joints: There are degenerative changes in the spine.. Soft tissues: Unremarkable. Lymph nodes: No enlarged lymph nodes. IMPRESSION: No pulmonary embolism is seen. There are small bilateral pulmonary nodules. These are of unknown etiology. These were not definitely seen on previous exam. Recommend follow-up as prescribed by the [employer]. Electronically signed by: Rocco Pacheco MD 12/09/24 01:44 AM Chest X-Ray 12/08/24 22:09 Exam(s): XR CXR 1 VIEW EXAM: XR Chest, 1 View CLINICAL HISTORY: Reason for exam: Sepsis. TECHNIQUE: Frontal view of the chest. COMPARISON: 08/14/2022. FINDINGS: Lungs: There are linear densities noted the lung bases. No consolidation. Pleural space: No pleural effusion is seen. No pneumothorax. Heart: The heart is normal in size.. Mediastinum: There is mild uncoiling of thoracic aorta.. Bones/joints: There are degenerative changes in the spine.. IMPRESSION: There is some mild scarring and/or atelectasis noted the lung bases. Electronically signed by: Rocco Pacheco MD 12/09/24 01:51 AM Soft Tissue Neck CT 12/08/24 22:09 Exam(s): CT NECK SOFT TISSUE With Contrast IV Amt: OPTIRAY 320 119ML EXAM: CT Neck With Intravenous Contrast CLINICAL HISTORY: Reason for exam: ST, low O2. TECHNIQUE: Axial computed tomography images of the neck with intravenous contrast. CTDI is 26.39 mGy and DLP is 819.22 mGy-cm. Automated exposure control was utilized for the study. A dose lowering technique was utilized adhering to the principles of ALARA. CONTRAST: Patient received OPTIRAY 320 119ML of IV contrast COMPARISON: No relevant prior studies available. FINDINGS: Oropharynx: No significant tonsillar enlargement. No peritonsillar abscess. Hypopharynx: Unremarkable. Larynx: Unremarkable epiglottis. Trachea: Unremarkable. Retropharyngeal space: Unremarkable. Submandibular/parotid glands: Glands are normal in size. Thyroid: There is a 4 mm lucency noted in the left lobe of the thyroid gland.. Bones/joints: There are degenerative changes in the cervical spine.. Soft tissues: Unremarkable. Vasculature: No acute findings. Lymph nodes: There are small bilateral cervical lymph nodes.. Lung apices: Unremarkable as visualized. Sinuses: There is mucoperiosteal thickening in the maxillary, ethmoid, sphenoid and frontal sinuses. IMPRESSION: There is a possible 4 mm nodule in the left lobe of the thyroid gland. There are small cervical lymph nodes noted of uncertain clinical significance. There are degenerative changes in the cervical spine. There is paranasal sinus disease. Electronically signed by: Rocco Pacheco MD 12/09/24 01:37 AM PG Care Time/CCT Total # of Minutes Spent Total Time Spent with Patient: Total time spent is greater than 50% in coordination of care (as documented) at patient's floor/unit and/or counseling patient: Coding Level of Care Code 72038 INT INP/OBS CARE 3/75MIN Diagnoses Acute hypoxic respiratory failure J96.01 Rhinovirus infection B34.8 Status post breast reduction Z98.890 GERD (gastroesophageal reflux disease) K21.9 Hyperlipidemia E78.5
[2024-12-09] MEDS ORDERED: ONDANSETRON INJ 2 MG/ML 2 ML VIAL IV PRN (02:55)
[2024-12-09 06:56] LABS: iSTAT Creatinine 1.2 mg/dl (0.6-1.3); iSTAT Hemoglobin 14.6 g/dl (12.0-16.0); iSTAT Ionized Calcium 1.08 mmol/l (1.12-1.32)
[2024-12-09] MEDS: PANTOprazole 40 MG TAB PO SCH (08:14)
[2024-12-09] MEDS: guaiFENesin 600 MG TABCR PO SCH (08:14)
--- NOTE | 2024-12-09 09:38 | Electrocardiogram Report ---
Test Reason : Blood Pressure : */* mmHG Vent. Rate : 97 BPM Atrial Rate : 97 BPM P-R Int : 176 ms QRS Dur : 74 ms QT Int : 348 ms P-R-T Axes : 67 -59 64 degrees QTcB Int : 441 ms Normal sinus rhythm Left anterior fascicular block Abnormal ECG When compared with ECG of 31-Oct-2024 10:24, Vent. rate has increased by 47 bpm Nonspecific T wave abnormality no longer evident in Inferior leads QT has lengthened Confirmed by Valente Keen ([id number]) on 12/09/2024 9:37:46 AM Referred By: REFERRED SELF Confirmed By: Valente Keen
[2024-12-09] MEDS: ATORVASTATIN 40 MG TAB PO SCH (09:41)
[2024-12-09] MEDS: ALBUTEROL 0.5% NEB SOLN 2.5 MG/0.5 ML VIAL NEB PRN (11:42)
[2024-12-09] MEDS: ACETAMINOPHEN 325 MG TAB PO PRN (18:46)
[2024-12-09 20:37] VITALS: RESP 18; O2SAT 95
[2024-12-10 08:05] VITALS: BP 146/81; TEMP 97.9
--- NOTE | 2024-12-10 11:16 | Discharge Summary ---
Discharge Summary Date of Service December 10, 2024 Principal Dx & Hospital Course #1 = Principal Diagnosis (1) Extrinsic asthma: Due to acute viral illness. Improved with nebulizer treatment and steroid therapy. She will be discharged on an a tapering dose of oral prednisone (2) Acute hypoxic respiratory failure: Resolved. Oxygen has been discontinued. She is now on room air (3) Rhinovirus infection: Present on admission. Suspected cause of extrinsic asthma (4) GERD (gastroesophageal reflux disease): Stable. Continue current medical management (5) Hyperlipidemia: Stable. Continue current medical management Plan Home today, December 10, on a prednisone tapering dose Admission HPI Per Admitting Provider Marilee Chao is a 59-year-old female with history of hyperlipidemia and GERD presenting with URI symptoms ongoing for the last 2 days. Patient reports she went to bed on 12/07 with a scratchy throat and woke up with a sore throat on. Throughout the day she has had persistently worsening symptoms. Cough occasio melvina productive as well as chest tightness, chills and shortness of breath. She reports she came up the stairs from her basement and was unable to catch her breath. Her uses supplemental oxygen. Patient brought it and was using it at home with some improvement. She was taking Tylenol and Mucinex as well with some improvement. In the ER she is afebrile, tachycardic, hypoxic to 87% on room air. Supplemental oxygen in place. Presently 95% on 2 L nasal cannula Discharge Exam General-alert and oriented x3, no fever, no chills HEENT-head atraumatic and normocephalic, pupils equal and reactive to light, extraocular muscles intact Neck-no lymphadenopathy or thyromegaly, trachea midline Chest-faint bilateral end expiratory wheezes. No rhonchi. No inspiratory rales Cardiac-regular rate and rhythm, normal S1 and S2 Abdomen-normal bowel sounds, no hepatosplenomegaly Extremities-no cyanosis, clubbing, or edema Neuro-cranial nerves II through XII intact, motor and sensory function within normal limits, strength symmetrical, no focal deficits Psych-normal affect, normal mood Discharge Plan Discharge Items Patient Disposition: Home - Self-Care Reason For Visit: ACUTE HYPOXIA,RHINOVIRUS Discharge Diagnosis: Viral illness, extrinsic asthma, transient acute hypoxic respiratory failure Condition on Discharge: Good Activity: Resume your previous activity Non-emergency contact: Primary Care Provider Call non-emergency contact if: your symptoms worsen Follow-up/Referrals: Norma Lujan [Primary Care Provider] - Diet: Regular Addtl Attending Provider Instructions: Take prednisone in a tapering dose fashion as directed. A prescription has been sent to your pharmacy Pending Studies at Discharge: No Stand-Alone Forms: My [facility], Smoking Cessation Medications and DC Order Prescriptions: New prednisone 10 mg tablet See Rx Instructions .ROUTE .COMPLEX Qty: 12 0RF Rx Instructions: 10 mg orally 3 times a day for 2 days, then 10 mg twice a day for 2 days, then 10 mg daily for 2 days, then stop Continued pantoprazole [Protonix] 40 mg tablet,delayed release (DR/EC) 40 mg PO QAM atorvastatin [Lipitor] 40 mg tablet 40 mg PO UD Rx Instructions: last filled 07/20/24 90 day supply Align (B.infantis) 4 mg Capsule 4 mg PO [id number] Rx Instructions: otc unable to verify take 3- times per week Discharge Orders: Discharge Order (Routine); Ordered 12/10/24 Ordered By: Russell Carty Admission Data Admit Date/Time: 12/09/24 02:30 Attending Provider: Russell Carty Admit Provider: Fabi Henderson Primary Care Provider: Norma Lujan Hospital Stay Data Diagnostic Imagining Performed 12/08/24 22:09 CT angio chest PE protocol Stat CT neck soft tissues [CT soft tissue neck w con] Stat Pending Results Patient Have Any Pending Studies at Discharge: No Discharge Instructions Given to Patient (Per Discharging Provider) Take prednisone in a tapering dose fashion as directed. A prescription has been sent to your pharmacy Total Time Total Time Spent Total Time Spent (In Minutes): 45 minutes Coding Level of Care Code 42714 INP/OBS DISCH >30 MIN Diagnoses Extrinsic asthma J45.909 Acute hypoxic respiratory failure J96.01 Rhinovirus infection B34.8 GERD (gastroesophageal reflux disease) K21.9 Hyperlipidemia E78.5
[2024-12-10 11:18] VITALS: PULSE 89
== END 2024-12-10 12:58 | disposition home or self-care (01) ==
LOC: ED 21:40 → EDINP 21:40 → SUATTDRO 12-09 02:30 → 3W 12-09 02:56